=== PATIENT | female | born 2000 | race Caucasian/White ===

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

== ENCOUNTER → 2020-02-14 | Outpatient (CLI) | payer OTHER, SELFPAY | END | disposition home or self-care (01) | PROVIDERS: PCP Family Medicine; Referring Provider Family Medicine; Visit Provider Family Medicine | DX: R30.0 Dysuria (principal) | CPT/HCPCS: 87086; 87088 ==

== ENCOUNTER 2020-10-09 08:27 | Outpatient (RCR) | payer OTHER, SELFPAY ==
[2020-05-25 15:16] VITALS: BMI 20.7
== END 2020-10-15 23:59 ==
LOC: EMPH 08:27
PROVIDERS: PCP Family Medicine; Visit Provider Family Medicine Geriatric Medicine
DX: Z03.818 Encounter for observation for suspected exposure to other biological agents ruled out (principal)

== ENCOUNTER → 2021-04-28 16:16 | Outpatient (CLI) | payer OTHER, SELFPAY ==
[2021-04-28 15:44] VITALS: BMI 18.6
[2021-04-29 09:56] LABS: HIV - WCH Non-Reactive (Nonreactive); Syphilis Antibodies Non-reactive
[2021-04-30 05:11] LABS: HEPATITIS B SURFACE AG Negative (Negative); Hepatitis A IgM Antibody Negative (Negative); Hepatitis B Core AB IgM Negative (Negative)
[2021-04-30 08:12] LABS: Hep C Antibodies <0.1 s/co ratio (0.0-0.9)
[2021-05-01 03:07] LABS: Chlamydia By Nucleic Acid AMP Negative (Negative)
[2021-05-01 11:36] LABS: Gonococcus By Nucleic Acid AMP Negative (Negative)
== END ==
PROVIDERS: PCP Family Medicine; Referring Provider Obstetrics & Gynecology; Visit Provider Obstetrics & Gynecology
DX: N92.1 Excessive and frequent menstruation with irregular cycle (principal); Z97.5 Presence of (intrauterine) contraceptive device; Z11.3 Encounter for screening for infections with a predominantly sexual mode of transmission
CPT/HCPCS: 36415; 80074; 86703; 86780; 87491; 87591

== ENCOUNTER 2022-01-12 07:17 | Outpatient (CLI) | payer OTHER, SELFPAY ==
[2022-01-12 08:01] LABS: Absolute Lymphocyte Count 1.14 X10^3/uL (0.83-4.51); Absolute Neutrophil Count 7.8 X10^3/uL (2.0-7.7); Basophil# 0.06 X10^3/uL; Basophil% 0.6 % (0-1); Eosinophil# 0.09 X10^3/uL; Eosinophils% 0.9 % (0-5); Hematocrit 41.8 % (37-47); Hemoglobin 14.2 g/dL (12.0-15.0); Lymphocyte # 1.14 X10^3/ul (0.83-4.51); Lymphocyte % 11.7 % (19-41); Mean Corpuscular Hgb 30.1 pg (27.0-32.0); Mean Corpuscular Volume 88.6 fL (81-99); Mean Platelet Vol. 11.4 fl (6.2-12.0); Monocyte% 6.2 % (0-10); NRBC Flagged by Analyzer 0 % (0-5); Neutrophil # 7.82 X10^3/uL (2.7-7.7); Neutrophil % 80.2 % (47-70); Platelet Count 189 K/mm3 (150-450); RBC Distribution Width CV 12.4 % (11.6-14.6); RBC Distribution Width SD 40.7 fl (35.1-43.9); Red Blood Count 4.72 M/mm3 (4.2-5.4); White Blood Count 9.8 K/mm3 (4.4-11.0)
[2022-01-12 08:25] LABS: ALB/GLOB Ratio 1.2 RATIO (0.9-2.4); AST(SGOT) 21 U/L (15-37); Alanine Aminotransfer ALT/SGPT 19 U/L (13-56); Albumin, Serum 4.1 g/dL (3.2-5.0); Alkaline Phosphatase 59 U/L (45-117); Anion Gap 3 (5-15); BUN 8 mg/dL (7-18); BUN/Creat Ratio 11.7 RATIO (10-20); Calcium,Total 9.6 mg/dL (8.5-10.1); Chloride 104 mmol/L (98-107); Creatinine, Serum 0.68 mg/dL (0.55-1.02); EST Glomerular Filtration Rate 116 mL/min (>60); Est Glom Filt Rate - Afr Amer 140 mL/min (>60); Globulin 3.3 g/dL (2.2-4.2); Glucose 109 mg/dL (74-106); Potassium 3.9 mmol/L (3.5-5.1); Protein, Total 7.4 g/dL (6.4-8.2); Sodium Level 137 mmol/L (136-145)
== END 2022-01-12 23:59 | disposition home or self-care (01) ==
PROVIDERS: PCP Family Medicine; Referring Provider Family Medicine; Visit Provider Family Medicine
DX: R10.9 Unspecified abdominal pain (principal)
CPT/HCPCS: 36415; 80053; 85025

== ENCOUNTER 2022-03-26 16:21 | Emergency (ER) | payer OTHER, SELFPAY ==
[2022-03-26 16:23] VITALS: BP 126/86; PULSE 86; RESP 15; TEMP 36.4; O2SAT 98; BMI 18.9
--- NOTE | 2022-03-26 17:03 | ED.VIS.DENTA ---
HPI History of Present Illness Chief Complaint: Dental Informant: patient Onset/Context/Timing Onset: Today Context: Gradual Onset Timing: Continuous Quality: throbbing Location: right maxillary Current Severity: Severe Maximum Severity: Severe Worsened by: eating Relieved by: - (nothing including tylenol, NSAIDs) Associated Symptoms Assocated Symptom - Dental: Negative for fever, jaw swelling or face swelling Narrative Narrative: Patient had a dental filling several weeks ago, her dentist told her that she may need a root canal and to let him know if the pain returned. She has been doing well until today at which point the pain is been gradually progressively worsening and is severe. She denies any fevers, swelling, discharge, bleeding. It is the same tooth. [facility] Medical History (Updated 03/26/22 @ 17:[address] Mayito Martinez MD) Depression with anxiety Diarrhea Encounter for screening for COVID-19 Fatigue Head ache History of blood clots Knee pain Neck pain Shoulder pain SOB (shortness of breath) sudden weight loss Home Medications buspirone 10 mg tablet 10 mg PO BID 05/25/20 [History Last Taken Unknown] fluoxetine 20 mg capsule 20 mg PO DAILY 05/25/20 [History Last Taken Unknown] levonorgestrel 20 mcg/24 hours (7 yrs) 52 mg intrauterine device 1 device INTRAUTERINE ONCE 05/25/20 [History Last Taken Unknown] omeprazole 20 mg capsule,delayed release 20 mg PO DAILY 04/28/21 [History Last Taken Unknown] spironolactone 50 mg tablet 50 mg PO DAILY 04/28/21 [History Last Taken Unknown] promethazine 25 mg tablet 25 mg PO TID PRN #14 tab 06/16/21 [Rx Last Taken Unknown] promethazine 50 mg/mL injection solution 25 mg IM ONCE #0.5 ml 06/16/21 [Clinic Last Taken Unknown] tramadol 50 mg PO Q4H PRN PRN 3 Days #18 tab 03/26/22 [Rx Last Taken Unknown] Allergy/AdvReac Type Severity Reaction Status Date / Time No Known Allergies Allergy Verified 05/25/20 15:13 Family History Mother High cholesterol Father High cholesterol Surgical History History of esophagogastroduodenoscopy (EGD) History of repair of anterior cruciate ligament of left knee Hx of colonoscopy Social History Smoking Status: Current every day smoker tobacco type: cigarettes second hand exposure: No alcohol intake: never substance use type: does not use caffeine: Yes what type of physical activity do you participate in: none frequency: does not exercise seatbelt use: always ROS ROS ED Constitutional Constitutional ED: Denies chills or fever(s) Eyes Eyes: Denies change in vision or double vision ENT ENT ED: Reports dental pain; Denies sinus pain or throat swelling Cardiovascular Cardiovascular: Denies chest pain or palpitations Respiratory/Chest Respiratory/Chest: Denies cough or dyspnea Integumentary Denies abscess or rash Neurologic Neurologic: Denies headache(s), paresthesias or weakness EXAM Physical Exam Const Vital Signs: 03/26/22 16:23 Temperature 97.6 F L Temperature Source Temporal Pulse Rate 86 Respiratory Rate 15 Blood Pressure 126/86 H Blood Pressure Mean 99 Pulse Ox 98 Oxygen Delivery Method Room Air Positive well nourished and well developed General Appearance ED: well developed and NAD HEENT HEENT Narrative: Nontender tooth #3. Discolored due to recent filling. No signs of infection, bleeding, gingivitis, subluxation/loosening, abscess. No trismus. Face and Sinus: sinuses nontender Throat: posterior oropharynx normal Eyes PERRL and EOMs intact bilaterally Neck no lymphadenopathy and supple Resp normal respiratory effort Neuro oriented x3 and CN's II-XII intact bilaterally Sensorium / Orientation: alert Gait (Neuro): normal gait Psych mental status grossly normal and thought process normal Skin no rashes or lesions noted and no wounds MDM MDM MDM Narrative Medical decision making narrative: No sign of any infection and since she had this tooth filled there is much less likely an infectious etiology of this pain. We will give her a prescription for tramadol, advised use ibuprofen and Tylenol with it as needed, and follow-up with her dentist as soon as the weekend is over which is her plan. Discharge Plan Triage Chief Complaint: Dental ED Provider: Mayito Martinez Dx/Rx/DC Orders Clinical Impression: Odontalgia Instructions: ED Dental Pain Prescriptions: New tramadol 50 MG tablet 50 mg PO Q4H PRN PRN (Reason: Pain) 3 Days Qty: 18 RF: 0 No Action fluoxetine 20 mg capsule 20 mg PO DAILY RF: 0 buspirone 10 mg tablet 10 mg PO BID RF: 0 Mirena 20 mcg/24 hours (5 yrs) 52 mg intrauterine device 1 device intrauterine ONCE RF: 0 spironolactone 50 mg tablet 50 mg PO DAILY RF: 0 omeprazole 20 mg capsule,delayed release(DR/EC) 20 mg PO DAILY RF: 0 promethazine 50 mg/mL solution 25 mg IM ONCE Qty: 0.5 RF: 0 promethazine 25 mg tablet 25 mg PO TID PRN (Reason: nausea and vomiting) Qty: 14 RF: 0 Primary Care Provider: Edson Khan Referrals: Edson Khan MD [Primary Care Provider] - Dentist,Your [STAFF PHYSICIAN] - As soon as possible Disposition Disposition: Home, Self Care Discharge Date/Time: 03/26/22 17:09
== END 2022-03-26 17:09 | disposition home or self-care (01) ==
PROVIDERS: Emergency Provider Emergency Medicine; PCP Family Medicine; Visit Provider Emergency Medicine
DX: K08.89 Other specified disorders of teeth and supporting structures (principal); F32.A Depression, unspecified; F41.9 Anxiety disorder, unspecified; Z79.899 Other long term (current) drug therapy; F17.210 Nicotine dependence, cigarettes, uncomplicated
CPT/HCPCS: 99282

== ENCOUNTER 2022-07-12 12:40 | Day surgery (SDC) | payer OTHER, SELFPAY ==
[2022-07-12] VITALS (8 sets, daily range): BP systolic 86–107; BP diastolic 52–68; PULSE 53–90; RESP 16–18; TEMP 36.3–37.4; O2SAT 100; BMI 20.7
--- NOTE | 2022-07-12 11:20 | PCM.HP.BLA ---
History and Physical Date of Admission: 07/12/22 [facility] [address] [place] [address] OFFICE VISIT Date of Service:? 06/09/22 MR#: [id number] Acct: [id number] Name:KARIS MATTHEW Rep #: [id number] : 2000 ? ? Provider: Dr. Eve Vasquez, DO Age/Sex:? 21/F ? ? Location: [facility] Status: Signed Intake Vital Signs ? 06/09/2213:03 06/09/2213:06 Height 5 ft 6 in 5 ft 6 in Weight: ? 126 lb BMI ? 20.3 BP ? 110/72 Intake Visit Reasons:?Mirena removal [employer] Required: No Is patient in pain?: No Allergies No Known Allergies Allergy (Verified 06/09/22 13:03) Medications buspirone 10 mg tablet 10 mg PO BID 05/25/20 [History Confirmed 06/09/22] fluoxetine 20 mg capsule 20 mg PO DAILY 05/25/20 [History Confirmed 06/09/22] spironolactone 50 mg tablet 50 mg PO DAILY 04/28/21 [History Confirmed 06/09/22] promethazine 25 mg tablet 25 mg PO Q6H PRN nausea and vomiting #60 tabs 06/09/22 [Rx Confirmed 06/09/22] sertraline 50 mg tablet (Zoloft) 50 mg PO DAILY #90 tabs 06/09/22 [Rx Confirmed 06/09/22] Post menopausal: No Patient : No : No PFSH Medical History? Depression with anxiety Diarrhea Encounter for screening for COVID-19 Fatigue Head ache History of blood clots Knee pain Neck pain Shoulder pain SOB (shortness of breath) sudden weight loss Surgical History? History of esophagogastroduodenoscopy (EGD) History of repair of anterior cruciate ligament of left knee Hx of colonoscopy Family History? Mother High cholesterolFather High cholesterol Social History? Smoking Status:? Current every day smoker tobacco type: cigarettes second hand exposure:? No alcohol intake:? never substance use type:? does not use caffeine:? Yes what type of physical activity do you participate in:? none frequency:? does not exercise seatbelt use:? always HPI Mirena removal Details: KARIS BRIGHT is a 21 year old who presents for IUD removal and discussion about contraception. She also wants to discuss changing her antidepressant medication to something different as she has moderate to severe anxiety that is causing nausea and vomiting. Currently she has pelvic pain associated with the IUD . She states that it was inserted to help stop her menses and as a safe resort after she experienced a blood clot in high school following an MCL tear while on OCPs. She states that she has bleeding most days of the month and has frequent cramping and pain. She is interested in depo-provera. Pregancy History ? ? ? 0 ? Elective abortions ? Hx Para ? Spontaneous abortions ? Hx # Term Pregnancies ? Ectopic pregnancies ? Hx # Pregnancies ? Multiple births ? # of living children ? ROS Const ROS Unobtainable: All systems reviewed & are unremarkable except as noted in H Resp Resp: Reports system reviewed and no additional complaints, except as documented; Denies cough GI GI: Reports as per HPI Psych Psych: Reports system reviewed and no additional complaints, except as documented Exam Const General: cooperative, healthy appearing, comfortable and no acute distress Resp Effort & Inspection: normal respiratory effort General: bimanual renal exam normal bilaterally External Female Exam: normal appearance of the urethra Urethra: normal appearance of the urethra Speculum Exam - Vagina: normal appearance of the vagina Speculum Exam - Cervix: normal appearance of the cervix Bimanual Exam- Adnexa, other: normal adnexae and normal Pelvic Support: normal Skin General: no rashes or lesions noted Psych Appearance: grossly normal Speech and Movement: speech and movement normal Office Procedures IUD Removal IUD Removal Details: Sign out documentation: Completed Procedure: Speculum placed in vagina, The iud strings were not visible. A long malick was used to reach into the cervical canal, however after multiple attempts and passes with the Malick deivce, the strings were not found and the procedure was aborted. Coding Level of Care Code Off vis,est,level 4 Diagnoses Retained intrauterine contraceptive device (IUD)? T83.39XA Contraceptive management? Z30.9 Anxiety? F41.9 Assessment and Plan Assessment and Plan (1) Retained intrauterine contraceptive device (IUD): ?Status:?Acute ?Plan: plan for hysteroscopy, removal of IUD and start depo-provera after removal consent signed today. (2) Contraceptive management: ?Status:?Acute ?Plan: plan for depo provera following surgery (3) Anxiety: ?Status:?Acute ?Plan: patient wants to stop fluoxetine. will try zoloft and continue wellbutrin and add on promethazine to take as needed for nausea and anxiety. ? ? ? Orders: Orders IUD Removal Today Z30.432 - Encounter for removal of intrauterine contraceptive device ? Medications: New promethazine 25 mg? PO Q6H PRN 60 tabs 3RF nausea and vomiting ? ? sertraline (Zoloft) 50 mg? PO DAILY 90 tabs 4RF ? ? UPDATE- I have seen the patient and performed any clinically relevant updates to the history and physical exam. Eve Vasquez, DO
[2022-07-12] MEDS: Lactated Ringers 1,000 ML 15 ML IV (13:10)
[2022-07-12 13:11] LABS: Hematocrit 41.6 % (37-47); Hemoglobin 13.6 g/dL (12.0-15.0); Mean Corp Hgb Conc 32.7 g/dL (32-36); Mean Corpuscular Volume 91.8 fL (81-99); Mean Platelet Vol. 10.2 fl (6.2-12.0); Platelet Count 210 K/mm3 (150-450); RBC Distribution Width CV 12.2 % (11.6-14.6); RBC Distribution Width SD 41.2 fl (35.1-43.9); Red Blood Count 4.53 M/mm3 (4.2-5.4); White Blood Count 4.9 K/mm3 (4.4-11.0)
[2022-07-12 13:23] LABS: Internal QC Validated? YES +Cl - CLEAR BKGD; Pregnancy, Urine Negative Negative
[2022-07-12] MEDS: Lidocaine 1% (20 ml mdv) 20 ML Vial (14:40)
--- NOTE | 2022-07-12 14:46 | PCM.OP.BLANK ---
Operative Report Date of Procedure: 07/12/22 preoperative diagnosis:retained IUD, unsuccessful removal in office postoperative diagnosis:retained IUD, unsuccessful removal in office surgery: Hysteroscopy, removal of retained intrauterine device (IUD) Surgeon: Dr. Eve Vasquez DO EBL: minimal urine output: none findings: atrophic appearing uterus specimens removed: endometrial curettings Details of the procedure: Patient was prepped and draped in a normal sterile fashion under MAC anesthesia. A weighted speculum was placed in the vagina and the anterior lip of the cervix was grasped with a single-tooth tenaculum. A paracervical block was placed with 1% lidocaine. Cervix was progressively dilated to allow passage of a 5 mm hysteroscope. The iud was found and a hysteroscopic grasper was inserted into the hysteroscope. The string was grasped and pulled gently. The IUD was then successfully removed. The Patient was awoken and taken to recovery in stable condition. Multi Select Codes Urinary/Genital Urinary/Genital CPT Codes: 57443 Hysteroscopic removal of FB
--- NOTE | 2022-07-12 14:49 | DCINST_ITS ---
Discharge Instructions Diet Discharge Diet: No restrictions Activity Discharge Activity: Return to Normal Activity, May Shower and May Take a Tub Bath (after 1 week) May resume sexual activity in: 1-2 weeks Weight Bearing Status: Weight bearing as tolerated Lifting Restrictions: none Dressing / Incision Call your doctor if you observe: Fever of 101 or Higher, Using more than 1 pad per hour, Shortness of breath and Uncontrolled pain Follow Up Care Please Follow Up With: Eve Vasquez DO When: Call [phone] to schedule appointment. Test Results: Test results from this visit will be discussed in further detail at your follow- up appointment, if applicable. Discharge Plan Admission Primary Reason for Your Visit: hysteroscopy, removal of intrauterine device. Attending Provider: Eve Vasquez Primary Care Provider: Edson Khan Discharge Orders/Prescriptions Prescriptions: No Action buspirone 10 mg tablet 10 mg PO BID spironolactone 50 mg tablet 50 mg PO DAILY trazodone 50 mg Tablet 50 mg PO DAILY PRN PRN (Reason: ANXIETY-RELATED N/V) sertraline [Zoloft] 50 mg tablet 50 mg PO QHS Referrals / Follow Up: Edson Khan MD [Primary Care Provider] - Disposition Disposition (needs filled in before D/C Order can be placed): Home, Self Care
[2022-07-12] MEDS: HYDROcodone Bitartrate/Apap 5/325 Tablet PO (15:50)
[2022-07-12] MEDS: MedroxyPROGESTERone 150 MG/ML Syringe IM (15:52)
== END 2022-07-12 16:20 | disposition home or self-care (01) ==
LOC: SDC 12:41 → AC 12:42
PROVIDERS: Anesthesiology; PCP Family Medicine; Referring Provider Obstetrics & Gynecology; Visit Provider Obstetrics & Gynecology
PROC: 0UDB8ZZ Extraction of Endometrium, Via Natural or Artificial Opening Endoscopic (ICD-10-PCS; CPT 58558; principal; 2022-07-12 14:00)
DX: Z30.432 Encounter for removal of intrauterine contraceptive device (principal); F32.9 Major depressive disorder, single episode, unspecified; F41.9 Anxiety disorder, unspecified; Z79.899 Other long term (current) drug therapy; F17.210 Nicotine dependence, cigarettes, uncomplicated
CPT/HCPCS: 58562; 00952; 81025; 85027; 86850; 86900; 86901; J7120; J2405

== ENCOUNTER → 2022-09-30 | Outpatient (CLI) | payer OTHER, SELFPAY ==
[2022-09-30 12:38] LABS: Absolute Lymphocyte Count 1.39 X10^3/uL (0.83-4.51); Absolute Neutrophil Count 2.4 X10^3/uL (2.0-7.7); Basophil# 0.05 X10^3/uL; Basophil% 1.2 % (0-1); Eosinophil# 0.11 X10^3/uL; Eosinophils% 2.6 % (0-5); Hematocrit 42.4 % (37-47); Hemoglobin 13.4 g/dL (12.0-15.0); Lymphocyte # 1.39 X10^3/ul (0.83-4.51); Lymphocyte % 32.6 % (19-41); Mean Corp Hgb Conc 31.6 g/dL (32-36); Mean Corpuscular Hgb 29.5 pg (27.0-32.0); Mean Corpuscular Volume 93.4 fL (81-99); Mean Platelet Vol. 11.2 fl (6.2-12.0); Monocyte# 0.32 X10^3/uL; Monocyte% 7.5 % (0-10); NRBC Flagged by Analyzer 0 % (0-5); Neutrophil # 2.38 X10^3/uL (2.7-7.7); Neutrophil % 55.9 % (47-70); Platelet Count 193 K/mm3 (150-450); RBC Distribution Width CV 12.8 % (11.6-14.6); RBC Distribution Width SD 43.8 fl (35.1-43.9); Red Blood Count 4.54 M/mm3 (4.2-5.4); White Blood Count 4.3 K/mm3 (4.4-11.0)
[2022-09-30 12:55] LABS: Anion Gap 7 (5-15); BUN 8 mg/dL (7-18); BUN/Creat Ratio 11.9 RATIO (10-20); Calcium,Total 9.3 mg/dL (8.5-10.1); Chloride 105 mmol/L (98-107); Creatinine, Serum 0.67 mg/dL (0.55-1.02); EST Glomerular Filtration Rate 116 mL/min (>60); Est Glom Filt Rate - Afr Amer 141 mL/min (>60); Glucose 77 mg/dL (74-106); Sodium Level 138 mmol/L (136-145); Thyroid Stim Hormone (TSH) 0.72 uIU/mL (0.358-3.74)
== END | disposition home or self-care (01) ==
LOC: MFPLAB 09:20
PROVIDERS: PCP Family Medicine; Referring Provider Family Medicine; Visit Provider Family Medicine
DX: R61 Generalized hyperhidrosis (principal)
CPT/HCPCS: 36415; 80048; 84443; 85025

== ENCOUNTER → 2022-12-03 | Outpatient (CLI) | payer OTHER, SELFPAY ==
--- NOTE | 2022-12-03 07:30 | MRI_ITS ---
STUDY: MRI LEFT KNEE REASON FOR EXAM: Female, 22 years old. PAIN POSTERIOR KNEE AND ALONG BOTH SIDES OF KNEE AT JOINT X 2 WEEKS. HX OF ACL TEAR IN 2019 WHICH WAS REPAIRED. RE-INJURED AND NOW PAINFUL ALL THE TIME. MR LEFT KNEE 2016 ALSO TECHNIQUE: Standardized fat and water weighted pulse sequences were obtained in all 3 orthogonal planes. COMPARISON: MRI of the left knee dated May 05, 2016 FINDINGS: There is attrition of the free edge of the medial meniscus without a demonstrated meniscal tear. There is diffuse, less than 50% thickness articular cartilage loss of the medial femorotibial compartment. Normal medial femoral condyle and tibial plateau. Normal medial collateral ligamentous complex (MCL). Normal distal semimembranosus, gracilis and semitendinosus tendons. Normal lateral meniscus. Normal hyaline cartilage of the lateral femorotibial compartment. Normal lateral femoral condyle and tibial plateau. Normal proximal tibiofibular articulation. Normal lateral collateral (fibular) ligament. Normal popliteus tendon. Normal biceps femoris tendon. The ACL graft is fully intact and without evidence of tearing or retraction. No visualized cyclops lesion or nodular fibrosis associated with the ACL. Mild fibrotic stranding is present in the posterior and lateral side of the knee joint. No marrow edema or osteochondral defect is seen. Normal posterior cruciate ligament (PCL). Normal congruent patellofemoral articulation. Normal hyaline cartilage of the patellofemoral compartment. Normal medial and lateral patellar retinaculum. Normal quadriceps tendon. Normal patellar tendon. Normal Hoffa''s fat pad. There is no joint effusion. The soft tissues are unremarkable. The otherwise visualized osseous structures are unremarkable. MRI/Lower Ext Joint Only (Routine) IMPRESSION: 1. The ACL graft is fully intact and without evidence of tearing or retraction. No visualized cyclops lesion or nodular fibrosis associated with the ACL. Mild fibrotic stranding is present in the posterior and lateral side of the knee joint. No marrow edema or osteochondral defect is seen. 2. Diffuse attrition/thinning of the medial meniscus without a discrete tear and mild cartilage loss in the medial compartment Electronically Signed: Chuck Fischer MD at 12:08 EST ,
== END | disposition home or self-care (01) ==
LOC: MRI 07:23
PROVIDERS: PCP Family Medicine; Referring Provider Orthopaedic Surgery; Visit Provider Orthopaedic Surgery
DX: M25.562 Pain in left knee (principal)
CPT/HCPCS: 73721

== ENCOUNTER 2023-01-03 14:00 | Outpatient (RCR) | payer OTHER, SELFPAY ==
--- NOTE | 2022-12-14 10:33 | HP.PTEVAL_ITS ---
Patient's Visit Information KARIS BRIGHT is a 22 year old F referred to Physical Therapy by Dr. Janes Manrique DO with a diagnosis of L knee pain. Date of Evaluation: 12/14/22 Physical Therapist: Patrice Shell, PT, ATC - Visit Plan Frequency: 2-3x /Week Duration: 4-6 Weeks Plan: L knee stretching and strengthening, core stab ex's, balance and proprio, bike, and HEP - Subjective Pt reports her L knee has been sore for 5 weeks now. Pt reports she tore her ACL in 2016, and this pain felt the same as before. Pt reports her pain had an insidious onset. Pt reports she woke up one morning to go to the bathroom, and by the time she got back to her bed, her pain was severe. Pt notes she had a recent MRI which revealed no signifcant findings. Pt reports her L knee has given out on her, but notes her knee clicks all the time. No tingling or numbness at this time. No sleep difficulty at this time. Pt reports prolonged walking and stair negotiation all increase her pain significantly. Pt reports rest and ice are the only things that really help to decrease her pain. 4/10 pain at rest, 8/10 pain at worst. - Pain L knee pain Pain Intensity (Out of 10): 3 Pain Intensity Range: 8 - Objective Neuro: B LE sensation is WNL to light touch. B achilles reflex= 2/3. Palpation: Pt is very sore in the popliteal region of L knee. Minor crepitus with AROM. Girth at joint line: B knees 35 cm. MMT: R knee flex= 37, ext= 44 #F; L knee flex= 10, ext= 11 #F. ROM: R knee 0-140 degrees; L knee 0-18-118 degrees. Special tests: pos 90/90 test (40 degree lag), pos apley compression stretch, pain with McMurrys - Balance/Special Test Scores Lower Extremity Functional Score: 23 - Goals Goal 1:: Decrease L knee pain x 50% to aid with tolerance for ambulation Goal Time Frame: 4-6 Weeks Goal 2:: Increase L knee strength x 20 #F to aid with IADL's Goal Time Frame: 4-6 Weeks Goal 3:: Increase L knee ROM x 20 degrees to aid with return to work without li mitation Goal Time Frame: 4-6 Weeks Goal 4:: I with HEP Goal Time Frame: 4-6 Weeks - Rehabilitation Potential Physical Therapy Diagnosis: Pt has L knee pain, weakness, and limited ROM secondary to L knee strain Rehabilitation Potential: Good - Anticipated Interventions Patient/Client Instruction: Educate patient on: Condition, Plan of Care For the Purpose of:: To improve self management Therapeutic Exercise to Include: Strength training, Endurance training, Balance training, Flexibilty training, Dynamic Lumbar Stabilization For the Purpose of:: To decrease pain, To increase ROM, To improve muscle performance and motor function Cryotherapy (ice pack, ice massage): Yes For the Purpose of:: To decrease pain Thank you for the opportunity to evaluate your patient. For Medicare and Medicare HMO plans, please review the plan of care and approve it. It will need to be FAXED BACK to us at [phone] for Medicare purposes. For Medicare only, by signing this I certify the plan of care. Please let me know if there are questions or concerns regarding this plan of care. Physician Signature: Date:
--- NOTE | 2023-04-19 09:13 | HP.PT.NRP ---
Patient Information Patient Information: KARIS BRIGHT was seen in my office for initial evaluation on 12/14/22. The following Plan of Care was established for this patient: POC Established Initial Frequency: 2-3x /Week Initial Duration: 4-6 Weeks Anticipated Interventions Patient/Client Instruction: Educate patient on: Condition and Plan of Care For the Purpose of:: To improve self management Therapeutic Exercise to Include: Strength training, Endurance training, Balance training, Flexibilty training and Dynamic Lumbar Stabilization For the Purpose of:: To decrease pain, To increase ROM and To improve muscle performance and motor function Cryotherapy (ice pack, ice massage): Yes For the Purpose of:: To decrease pain Last Seen Last Seen: This patient was last seen in our office . Pertinent comments regarding their Physical therapy will appear below: Pt was treated for 4 PT visits for L knee pain through the date of 01/03/23. Pt has not returned through todays date and is discontinued at this time. At this point I will be discontinuing this patient from physical therapy. I would be happy to see this patient again in the future if found appropriate by the physician. Thank you! Patrice Shell, PT, ATC Balance/Gait/Functional tests Balance/Special Test Scores Lower Extremity Functional Score: 23
== END 2023-01-03 19:00 | disposition home or self-care (01) ==
LOC: PT 14:00
PROVIDERS: PCP Family Medicine; Referring Provider Orthopaedic Surgery; Visit Provider Orthopaedic Surgery
DX: S83.512D Sprain of anterior cruciate ligament of left knee, subsequent encounter (principal)
CPT/HCPCS: 97110; 97161

== ENCOUNTER 2023-03-17 16:25 | Emergency (ER) | payer OTHER, SELFPAY ==
[2023-03-17 16:26] VITALS: BP 115/78; PULSE 107; RESP 16; TEMP 36.9; O2SAT 100
[2023-03-17 16:27] VITALS: BMI 22.0
--- NOTE | 2023-03-17 16:30 | RAD_ITS ---
INDICATION: Trauma, fall EXAMINATION/TECHNIQUE: X-RAY - LEFT XR Tibia/Fibula 2 Views 2 VIEWS COMPARISON: None. FINDINGS: SOFT TISSUES: No soft tissue swelling or gas. Surgical clip at the lateral femoral condyle. BONES/JOINTS: No acute fracture. Surgical changes from prior ACL repair. Joint spaces anatomically aligned. RAD/Tibia & Fibula 2 Views IMPRESSION: No acute bony injury. Electronically Signed: Herman Hinkle MD at 16:58 EDT ,
--- NOTE | 2023-03-17 16:44 | EX.ED.DYSGE1 ---
HPI History of Present Illness Chief Complaint: Lower Extremity Injury [facility] Medical History (Updated 03/17/23 @ 17:[address] Masood Moreno, DO) Depression with anxiety Easy bruising Excessive bleeding Gastric reflux History of blood clots History of DVT (deep vein thrombosis) Marijuana use PONV (postoperative nausea and vomiting) Restless legs Smoker SOB (shortness of breath) sudden weight loss Home Medications buspirone 10 mg tablet 10 mg PO BID 05/25/20 [History Last Taken Unknown] spironolactone 50 mg tablet 50 mg PO DAILY ACNE 04/28/21 [History Last Taken Unknown] trazodone 50 mg tablet 50 mg PO DAILY PRN PRN ANXIETY-RELATED N/V 07/04/22 [History Last Taken Unknown] medroxyprogesterone 150 mg/mL intramuscular syringe (Depo-Provera) 150 mg IM [id number] #1 mL 08/02/22 [Rx Last Taken Unknown] sertraline 50 mg tablet (Zoloft) 50 mg PO QHS #30 tabs 08/02/22 [Rx Last Taken Unknown] promethazine 12.5 mg tablet 12.5 mg PO Q6H PRN nausea and vomiting #60 tabs 01/30/23 [Rx Last Taken Unknown] promethazine 25 mg tablet 25 mg PO Q6H PRN nausea and vomiting #60 tabs 02/01/23 [Rx Last Taken Unknown] Allergy/AdvReac Type Severity Reaction Status Date / Time No Known Allergies Allergy Verified 03/17/23 16:27 Family History Mother High cholesterol Father High cholesterol Surgical History History of esophagogastroduodenoscopy (EGD) History of repair of anterior cruciate ligament of left knee Hx of colonoscopy Social History Smoking Status: Current every day smoker tobacco type: cigarettes second hand exposure: No alcohol intake: never substance use type: does not use caffeine: Yes what type of physical activity do you participate in: none frequency: does not exercise seatbelt use: always EXAM Physical Exam Const Vital Signs: 03/17/23 16:26 Temperature 98.5 F Temperature Source Temporal Pulse Rate 107 H Respiratory Rate 16 Blood Pressure 115/78 Blood Pressure Mean 90 Pulse Ox 100 Oxygen Delivery Method Room Air [facility] [place] Narr[place] Medical decision making narrative: HISTORY OF PRESENT ILLNESS: 22-year-old female here with left leg pain. The patient states she had mechanical fall from standing. No head trauma or loss of consciousness noted. She states she has 10 out of 10 left leg pain. Denies history of fracture or dislocation to the involved extremity. REVIEW OF SYSTEMS: Pertinent positives: Leg pain Pertinent negatives: Numbness, tingling, blue discoloration PHYSICAL EXAM: Nursing triage notes reviewed, Vital signs reviewed Constitutional: please see mdm Extremities: No edema, TTP over distal left tibia. Compartments are soft. Neuro: Intact sensation L1-S1 dermatomal distributions. Intact 5/5 strength in hip flexion (T12-L3). Knee extension (L2-L4). Ankle dorsiflexion (L4-L5). Ankle plantar flexion (S1). Great toe extension (L5). 2+ patellar and Achilles DTRs. Skin: No rash or lesions noted, no evidence of open fracture MEDICAL DECISION MAKING: Chief Complaint: Left lower leg pain External records reviewed: No recent advanced imaging of the involved extremity Factors affecting care: Depression, anxiety, history of DVT Social determinants of health: Current every day smoker, marijuana abuse History obtained from others: The patient's family, malina? Consults: None ALL IMAGES HAVE BEEN PERSONALLY REVIEWED AND INTERPRETED BY MYSELF. [facility] Narrative: Patient was hemodynamically stable, afebrile, nontoxic-appearing. Exam with mild TTP over lower anterior tibia. No obvious deformity or open fracture. I considered the following differential diagnosis: Fracture, dislocation, bone contusion I obtained an x-ray of the involved extremity. X-ray was personally read by myself. No obvious fracture dislocation was noted. Radiologist agrees there is no obvious fracture dislocation noted. The patient is likely some from a bone contusion and as such can be discharged with close outpatient follow-up. She is instructed to take Tylenol and ibuprofen every 6 hours as needed for pain control. She is instructed to return if symptoms change worsen or she develop discoloration, increasing pain, numbness, tingling or decreased temperature of the involved extremity. Total critical care time today provided was at least 0 minutes. This excludes separately billable procedures. There was a high probability of clinically significant/life threatening deterioration in the patient's condition which required my urgent intervention. Shared decision making: I will have a discussion with the patient and or visitors regarding risk/benefits of further testing or admission. They will be made aware of of the risk/benefits inherent in this decision they will be given the opportunity to voice understanding. Radiography Diagnostic Testing: Clinical Impression(s) from Imaging Studies Tibia/Fibula X-Ray 03/17/23 16:30 IMPRESSION: No acute bony injury. Electronically Signed: Herman Hinkle MD at 16:58 EDT , X-ray reviewed personally by myself shows no evidence of fracture dislocation Discharge Plan Triage Chief Complaint: Lower Extremity Injury ED Provider: Masood Moreno Dx/Rx/DC Orders Clinical Impression: Contusion of left leg Instructions: Bone Contusion Prescriptions: No Action buspirone 10 mg tablet 10 mg PO BID spironolactone 50 mg tablet 50 mg PO DAILY sertraline [Zoloft] 50 mg tablet 50 mg PO QHS Qty: 30 12RF medroxyprogesterone [Depo-Provera] 150 mg/mL syringe 150 mg IM [id number] Qty: 1 4RF trazodone 50 mg Tablet 50 mg PO DAILY PRN PRN (Reason: ANXIETY-RELATED N/V) promethazine 12.5 mg tablet 12.5 mg PO Q6H PRN (Reason: nausea and vomiting) Qty: 60 0RF promethazine 25 mg tablet 25 mg PO Q6H PRN (Reason: nausea and vomiting) Qty: 60 6RF Primary Care Provider: Edson Khan Referrals: Edson Khan MD [Primary Care Provider] - Activity Restrictions/Additional Instructions: Thank you for trusting us with your care today! Please take Tylenol (2 pills, 650 mg), ibuprofen (2 pills, 400 mg) every 6 hours as needed for pain and fever control. Please return to the emergency department if your symptoms change or worsen. Specifically if you develop blue discoloration of the involved extremity, increasing pain, numbness, tingling or if your extremity becomes cool to touch. Please follow with your primary care physician for further outpatient evaluation and management. Disposition Disposition: Home, Self Care
[2023-03-17] MEDS: Ibuprofen 200 MG Tablet 400 MG PO (17:27)
[2023-03-17] MEDS: Acetaminophen 325 MG Tablet PO (17:28)
== END 2023-03-17 17:37 | disposition home or self-care (01) ==
PROVIDERS: Emergency Provider Emergency Medicine; PCP Family Medicine; Visit Provider Emergency Medicine
DX: S80.12XA Contusion of left lower leg, initial encounter (principal); F41.9 Anxiety disorder, unspecified; F17.210 Nicotine dependence, cigarettes, uncomplicated; Z86.718 Personal history of other venous thrombosis and embolism; W19.XXXA Unspecified fall, initial encounter
CPT/HCPCS: 73590; 99281; 99283

== ENCOUNTER → 2023-03-22 | Outpatient (CLI) | payer OTHER, SELFPAY ==
[2023-03-24 21:08] LABS: Chlamydia By Nucleic Acid AMP Negative (Negative); Gonococcus By Nucleic Acid AMP Negative (Negative)
[2023-03-28 18:22] LABS: HPV Reflexed? NOT INDICATED
== END | disposition home or self-care (01) ==
LOC: LABSPEC 16:20
PROVIDERS: PCP Family Medicine; Referring Provider Registered Nurse; Visit Provider Registered Nurse
DX: Z12.4 Encounter for screening for malignant neoplasm of cervix (principal); Z11.3 Encounter for screening for infections with a predominantly sexual mode of transmission
CPT/HCPCS: 87491; 87591; 88175; G0145

== ENCOUNTER 2023-09-02 09:26 | Emergency (ER) | payer OTHER, SELFPAY ==
[2023-09-02 09:27] VITALS: BP 131/87; PULSE 118; RESP 16; TEMP 36.5; O2SAT 100; BMI 25.4
--- NOTE | 2023-09-02 09:53 | EDS_ITS ---
HPI HPI - Female History of Present Illness Chief Complaint: Complaint Informant: patient Narrative Narrative: Patient awoke this morning around 3 AM with dysuria and low back discomfort, similar to when she has had prior urinary tract infections. 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 She denies any symptoms of pyelonephritis. Typically gets low back pain when she has urine infections. She has had many of them in the past, she has seen her PCP, who recommended that she see a specialist but she has not scheduled 1 yet. [facility] Medical History Depression with anxiety Easy bruising Excessive bleeding Gastric reflux History of blood clots History of DVT (deep vein thrombosis) Marijuana use PONV (postoperative nausea and vomiting) Restless legs Smoker SOB (shortness of breath) sudden weight loss Home Medications buspirone 10 mg tablet 10 mg PO BID 05/25/20 [History Last Taken Unknown] trazodone 50 mg tablet 50 mg PO DAILY PRN PRN ANXIETY-RELATED N/V 07/04/22 [History Last Taken Unknown] medroxyprogesterone 150 mg/mL intramuscular syringe (Depo-Provera) 150 mg IM [id number] #1 mL 08/02/22 [Rx Last Taken Unknown] sertraline 50 mg tablet (Zoloft) 50 mg PO QHS #30 tabs 08/02/22 [Rx Last Taken Unknown] promethazine 12.5 mg tablet 12.5 mg PO Q6H PRN nausea and vomiting #60 tabs 01/30/23 [Rx Last Taken Unknown] promethazine 25 mg tablet 25 mg PO Q6H PRN nausea and vomiting #60 tabs 02/01/23 [Rx Last Taken Unknown] sulfamethoxazole 800 mg-trimethoprim 160 mg tablet 1 tab PO BID #6 TABLETS 08/16 06/07 [Rx Last Taken Unknown] Allergy/AdvReac Type Severity Reaction Status Date / Time No Known Allergies Allergy Verified 09/02/23 09:28 Family History Mother High cholesterol Father High cholesterol Surgical History History of esophagogastroduodenoscopy (EGD) History of repair of anterior cruciate ligament of left knee Hx of colonoscopy Social History current occupational status: employed current occupation: [employer] Smoking Status: Never smoker second hand exposure: No alcohol intake: never substance use type: does not use caffeine: Yes what type of physical activity do you participate in: none frequency: does not exercise seatbelt use: always additional social history: fience - Naif ROS ROS ED Constitutional Constitutional ED: Denies chills or fever(s) Gastrointestinal Gastrointestinal: Reports abdominal pain; Denies nausea or vomiting Genitourinary Genitourinary ED: Reports dysuria, low back pain, urinary frequency and urinary urgency; Denies flank pain or hematuria EXAM Physical Exam Const Vital Signs: 09/02/23 09:27 Temperature 97.7 F L Temperature Source Temporal Pulse Rate 118 H Respiratory Rate 16 Blood Pressure 131/87 H Blood Pressure Mean 101 Pulse Ox 100 Oxygen Delivery Method Room Air Positive well nourished and well developed General Appearance ED: well developed and NAD Resp normal respiratory effort GI normal to inspection, nondistended, normoactive bowel sounds GI Narrative: Mild suprapubic tenderness, otherwise benign abdomen Palpation: Negative for guarding Back/Spine no CVA tenderness Neuro oriented x3, CN's II-XII intact bilaterally and no sensory deficits noted Motor Exam: strength 5/5 throughout Psych mental status grossly normal Skin no rashes or lesions noted MDM MDM MDM Narrative Medical decision making narrative: Patient took Azo this morning, she states her urine is already orange, so I am not going to wait on the urinalysis, I am going to treat her with 3 days of Bactrim for a cystitis, and send a urine culture. She will be referred to urology as an outpatient for her frequent infections. She is comfortable with that plan. Discharge Plan Triage Chief Complaint: Complaint ED Provider: Mayito Martinez Dx/Rx/DC Orders Clinical Impression: Frequent refractory urinary tract infections, Acute cystitis without hematuria Instructions: Urinary Tract Infections in Women Prescriptions: New sulfamethoxazole-trimethoprim [sulfamethoxazole-trimethoprim] 800-160 mg tablet 1 tab PO BID Qty: 6 0RF No Action buspirone 10 mg tablet 10 mg PO BID sertraline [Zoloft] 50 mg tablet 50 mg PO QHS Qty: 30 12RF medroxyprogesterone [Depo-Provera] 150 mg/mL syringe 150 mg IM [id number] Qty: 1 4RF trazodone 50 mg Tablet 50 mg PO DAILY PRN PRN (Reason: ANXIETY-RELATED N/V) promethazine 12.5 mg tablet 12.5 mg PO Q6H PRN (Reason: nausea and vomiting) Qty: 60 0RF promethazine 25 mg tablet 25 mg PO Q6H PRN (Reason: nausea and vomiting) Qty: 60 6RF Primary Care Provider: Edson Khan Referrals: Hilary Collins MD [Med Staff - Active Staff] - Edson Khan MD [Primary Care Provider] - Disposition Disposition: Home, Self Care
[2023-09-02] MEDS: Smz/Tmp Ds Tablet 1 TABLET PO (10:01)
[2023-09-02 10:06] LABS: Glucose, Dipstick Normal (Normal); Ketone-Dipstick Negative (Negative); Leukocyte Esterase-Dipstick 25 /ul (Negative); Nitrite-Dipstick Positive (Negative); Occult Blood-Urine 10 /ul (Negative); Protein-Dipstick 30 mg/dl (Negative); Urine Clarity Sl. Cloudy (Clear); Urine Urobilinogen 8 mg/dl (Normal)
[2023-09-02 10:09] LABS: Color, Urine SEE COMMENT BELOW (Yellow); Urine Bilirubin Dipstick 6 mg/dL (Negative)
[2023-09-02 10:13] LABS: Red Blood Cells-Urine 0-5 SEEN /hpf (0-5); White Blood Cells 10-25 SEEN /hpf (0-5)
[2023-09-02 10:14] LABS: Bacteria 1+ /hpf (None Seen); Mucous, Urine 1+ /hpf (<or=2+); Squamous Epithelial Cells - UA 0-5 SEEN /hpf (5-10)
== END 2023-09-02 10:05 | disposition home or self-care (01) ==
LOC: ED 10:03
PROVIDERS: Emergency Provider Emergency Medicine; PCP Family Medicine; Visit Provider Emergency Medicine
DX: N30.00 Acute cystitis without hematuria (principal); Z87.440 Personal history of urinary (tract) infections; R30.0 Dysuria; R35.0 Frequency of micturition; R39.15 Urgency of urination
CPT/HCPCS: 81001; 87086; 87088; 87186; 99282

== ENCOUNTER → 2023-10-24 | Outpatient (CLI) | payer OTHER, SELFPAY ==
--- NOTE | 2023-10-24 14:02 | US_ITS ---
STUDY: RENAL ULTRASOUND - COMPLETE REASON FOR EXAM: Female, 22 years old. Recurrent UTI TECHNIQUE: Ultrasound evaluation of the kidneys was performed with real-time and static warren-scale imaging. COMPARISON: None. FINDINGS: RIGHT KIDNEY: Normal location of the right kidney, which is normal in size. The right kidney measures 10.6 cm x 5.9 cm x 3.8 cm. There is a normal cortex of the right kidney. The renal cortex measures 1.5 cm. There is no right renal mass or cyst. There are no right renal calculi. There is no right hydronephrosis. DISTAL RIGHT URETER: There is non-visualization of the distal right ureter. There is no demonstrated right ureterovesical junction calculus. There is a visualized right ureteral jet. LEFT KIDNEY: Normal location of the left kidney, which is normal in size. The left kidney measures 11.3 cm x 5.6 cm x 4.1 cm. There is a normal cortex of the left kidney. The renal cortex measures 1.4 cm. There is no left renal mass or cyst. There are no left renal calculi. There is no left hydronephrosis. DISTAL LEFT URETER: There is non-visualization of the distal left ureter. There is no demonstrated left ureterovesical junction calculus. There is a visualized left ureteral jet. BLADDER: The distended urinary bladder has a volume of 106 ml. There is a normal wall thickness of the distended urinary bladder. There is no demonstrated mass within the urinary bladder. There are no demonstrated bladder calculi. US/Kidney and Bladder IMPRESSION: Normal ultrasound of the kidneys and urinary bladder. Electronically Signed: Castillo Treviño MD at 15:00 EST ,
--- OUTSIDE RECORDS SUMMARY | 2023-10-24 15:40 | XMS RPT_ITS | CCD ---
Author Name Unknown Address [address] [place] [address] Organization [facility] Results Test Name Value Interpretation Reference Range Facil ity Summary Purpose Family History No Family History Records Found Advance Directives No Advanced Directives Records Found Additional Source Comments INFORMATION SOURCE (unrecogn ized section and content) FOR RECORDS PERTAINING TO PATIENTS WHO ARE OR HAVE BEEN ENROLLED IN A CHEMICAL DEPENDENCY/SUBSTANCEABUSE PROGRAM, SOME INFORMATION MAY BE OMITTED. This clinical summary was aggregated from multiple sources. Caution should be exercised in using it in the provision of clinical care. This summary normalizes information from multiple sources, and as a consequence, information in this document may materially change the coding, format and clinical context of patient data. In addition, data may be omitted in some cases. CLINICAL DECISIONS SHOULD BE BASED ON THE PRIMARY CLINICAL RECORDS. [employer] provides no warranty or guarantee of the accuracy or completeness of information in this document.
== END | disposition home or self-care (01) ==
LOC: US 13:58
PROVIDERS: PCP Family Medicine; Referring Provider Urology; Visit Provider Urology
DX: N39.0 Urinary tract infection, site not specified (principal)
CPT/HCPCS: 76770

== ENCOUNTER 2024-03-27 09:17 | Day surgery (SDC) | payer OTHER, SELFPAY ==
[2024-03-27] VITALS (9 sets, daily range): BP systolic 99–111; BP diastolic 56–74; PULSE 62–82; RESP 14–18; TEMP 36.3–36.6; O2SAT 100; BMI 24.5
--- NOTE | 2024-03-27 09:27 | HP.PCM_ITS ---
History and Physical Date of Admission: 03/27/24 Date of Service: 02/27/24 MR#: [id number] Acct: [id number] Name: KARIS BRIGHT Rep #: [id number] : 2000 Provider: Dr. Dianne Roberto MD Age/Sex: 23/F Location: [facility] Status: Signed Intake Vital Signs 09/02/2309:27 01/28/2410:50 02/26/2413:17 Height 5 ft 6 in 5 ft 6 in Weight: 155 lb BP 106/74 Blood Pressure Location Rt brachial Position Sitting Respiration 17 Pulse 93 Pulse Source Monitor Temp 97.6 F L Temp Source Temporal Pulse Oximetry (%) 99 Oxygen Delivery Method room air Intake Visit Reasons: CONSTIPATION, BLOOD IN STOOL Chief Complaint: constipation, blood in stool Is patient in pain?: No Allergies No Known Allergies Allergy (Verified 02/27/24 13:20) Medications ?Medication ?Instructions ?Recorded ?Confirmed ?Type buspirone 10 mg tablet 10 mg PO BID 05/25/20 02/27/24 History trazodone 50 mg tablet 50 mg PO DAILY PRN PRN 07/04/22 02/27/24 History ANXIETY-RELATED N/V sertraline 50 mg tablet (Zoloft) 50 mg PO QHS #30 tabs 08/02/22 02/27/24 Rx promethazine 12.5 mg tablet 12.5 mg PO Q6H PRN nausea and 01/30/23 02/27/24 Rx vomiting #60 tabs promethazine 25 mg tablet 25 mg PO Q6H PRN nausea and 02/01/23 02/27/24 Rx vomiting #60 tabs medroxyprogesterone 150 mg/mL 150 mg IM [id number] #1 mL 10/06/23 02/27/24 Rx intramuscular syringe (Depo-Provera) PFSH Medical History Depression with anxiety Easy bruising Excessive bleeding Gastric reflux History of blood clots History of DVT (deep vein thrombosis) Marijuana use PONV (postoperative nausea and vomiting) Restless legs Smoker SOB (shortness of breath) sudden weight loss Surgical History Hx of colonoscopy History of esophagogastroduodenoscopy (EGD) History of repair of anterior cruciate ligament of left knee Family History Mother High cholesterolFather High cholesterol Social History current occupational status: employed current occupation: [employer] Smoking Status: Never smoker second hand exposure: No alcohol intake: never substance use type: does not use caffeine: Yes what type of physical activity do you participate in: none frequency: does not exercise seatbelt use: always additional social history: roula - Naif HPI HPI HPI: 23-year-old female presents due to bright red blood per rectum. Patient did previously have a colonoscopy in 2019 that was negative due to having diarrhea. Patient states about 2 weeks ago she had bright red blood per rectum with wiping and some in the toilet and moderate amount. Patient denies any pain with bowel movements at that time. Patient states she was having normal bowel movements that were not constipated. Then the next week patient states she is having diarrhea but no blood with that and more recently patient has been constipated and not really going straining some but again no bright red blood seen. Patient denies any abdominal pain with this. ROS General General: No weight change, appetite, fatigue, colon cancer or breast cancer HEENT HEENT: No difficulty swallowing, eye injury, eye surgery, swollen glands or hoarseness Endo Endocrine: No thyroid disease, diabetes mellitus, thyroid cancer, Hair loss, heat intolerance or cold intolerance Skin Skin: No rash or changing moles Musc Musculoskeletal: No back problems, arthritis, rheumatoid arthritis, gout or joint pain Cardio Cardiovascular: No murmur, pacemaker, heart disease, atrial fibrillation, high blood pressure, heart attack, heart stent, palpitations, shortness of breat with exertion or chest pain Psych Psychiatric: Yes depression and anxiety; No hearing voices Resp Respiratory: No shortness of breath, No sleep apnea, No cough, No COPD, No asthma, No emphysema and No wheezing Gastro Gastrointestinal: Yes abdominal pain, Yes nausea or vomiting, Yes diarrhea, Yes constipation, Yes blood in stool, Yes acid reflux, No hemorrhoids, No ulcers, No gallbladder problem and No black,tarry stools Nguyễn Hematologic: No blood thinners, No blood disorders, No bleeding, No anemia and Yes blood clots Additional Details: 2016 after knee surgery Neuro Neurologic: No numbness and No tingling Exam Const General: cooperative, healthy appearing, comfortable and no acute distress HENMT Head: normocephalic and atraumatic Neck Neck: supple Resp Effort & Inspection: normal respiratory effort Cardio Rate: regular rate GI Inspection: non-distended Palpation: soft and nontender Skin General: no rashes or lesions noted Neuro General: CN's II-XI intact bilaterally Extrem General: normal to inspection Psych Mental Status: mental status grossly normal Attitude: cooperative Assessment and Plan Assessment and Plan (1) Rectal bleeding: Status: Acute Orders: Orders Colonoscopy 03/27/24 Plan I have discussed the above with the patient. I have offered the patient colonoscopy for evaluation. I have explained the risks/benefits of the procedure and described the procedure. I have discussed the risks with the patient, including but not limited to: infection, bleeding, perforation of the GI tract requiring emergency surgery, inability to complete the procedure, injury to any internal organs, complications of anesthesia, etc. - the patient understands and agrees to proceed. I have answered all the patient's questions to the patient's satisfaction and the patient has no further questions. The patient has been given instructions for the colon cleansing preparation. 1 day of clears, MiraLAX Dulcolax split prep if patient is having bowel movement at least every 2 days or less otherwise patient will need additional Dulcolax and possibly another day of clears. Dianne Roberto M.D. Pager: [phone] [facility] [address] [place] [address], [address] [place] [address] Office: [phone] Coding Level of Care Code Off vis,new,level 3 Diagnoses Rectal bleeding K62.5 02/28/24 0939 <Electronically signed by Dianne Roberto MD> Date Dianne Roberto MD
[2024-03-27 09:40] LABS: Internal QC Validated? YES +Cl - CLEAR BKGD; Pregnancy, Urine Negative Negative
[2024-03-27] MEDS: Lactated Ringers 1,000 ML 15 ML IV (09:44)
--- NOTE | 2024-03-27 09:44 | PRE.ANES_ITS ---
ASA Classification* ASA Classification ASA Classification: 2 Assessment & Plan Anesthesia* Anesthesia Assessment Anesthesia Assessment: Discussed sedation and/or anesthesia options, risks, benefits, and alternatives with patient/parents/legal guardian. Questions invited. The patient/parents/legal guardian/POA seems to understand and agrees to proceed with anesthesia plan. Reviewed the physical assessment, medical history, allergy history and patient home medications list prior to surgery/procedure/anesthetic and documented any changes. Performed airway and anesthesia risk assessments. 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 When Was Last Pacemaker Check QUESTION #4 FULL TEXT: You/Your Family Experience fever (hyperthermia) with Anesthesia Last Oral Intake Last Oral intake: Last Oral Intake NPO since 21:30 03/27/24 09:40 Meds taken in AM with sips of No 03/27/24 09:40 water? Meds patient instructed to take am of surgery PONV PONV - agriculture inspector: PONV - agriculture inspector Female Yes 03/20/24 10:39 HX of Motion Sickness Yes 03/20/24 10:39 HX of N/V After Surgery Yes 03/20/24 10:39 Non-Smoker No 03/20/24 10:39 Duration of Surgery greater No 03/20/24 10:39 than 60 minutes Number of Risk Factors 3 03/20/24 10:39 PONV Score Moderate Risk 03/20/24 10:39 Height & Weight Height & Weight: Anesthesia: Height & Weight Height 1.68 m 03/27/24 09:40 Weight: 69 kg 03/27/24 09:40 Body Mass Index (BMI) 24.5 03/27/24 09:40 Respiratory Assessment Respiratory Assessment - agriculture inspector: Respiratory Tract Infection Hx - agriculture inspector Hx Respiratory Tract Infection No 03/20/24 10:39 STOP Sleep Apnea STOP Sleep Apnea - agriculture inspector: STOP Sleep Apnea - agriculture inspector Hx Hypertension No 03/20/24 10:39 Hx Sleep Apnea No 03/20/24 10:39 CPAP BIPAP Do you snore loudly (louder No 03/20/24 10:39 than talking or can be heard Do you often feel tired/ No 03/20/24 10:39 fatigued/ sleepy during daytime? Has anyone observed you stop No 03/20/24 10:39 breathing during sleep? STOP Results Negative 03/20/24 10:39 QUESTION #5 FULL TEXT : Do you snore loudly (louder than talking or can be heard through closed doors)? 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 Specify any problems Hx of Preganancy in last 3 No 03/20/24 10:39 Months Nurse Filling Out Transfusion VCHRISTIN 03/20/24 10:39 & Questions: Date: 03/20/24 03/20/24 10:39 Time: 10:40 03/20/24 10:39 Patient unable to answer at this time (ie. confused, unrespo /Reproduction History /Reproductive History - agriculture inspector: /Reproductive Hx- agriculture inspector Hx Now No 03/20/24 10:39 Gestational Age (in weeks): EDC: Hx Hx Para Hx Section SAB No 03/20/24 10:39 Active Medications Active Medications: Current Medications Generic Name Dose Route Start Last Admin Trade Name Freq PRN Reason Stop Dose Admin Lactated Ringer's 1,000 mls @ 15 mls/hr 03/27/24 09:30 IV .Q48H [facility] Anesthesia Focused Assessment* Temperature: 97.9 F Pulse Rate: 82 Blood Pressure: 111/74 Respiratory Rate: 16 Pulse Ox: 100 Airway Assessment Mouth opens (cm): 3 Mallampati Score: I Focused Labs Anesthesia Preop lab: CBC WBC 4.3 K/mm3 (4.4-11.0) L 09/30/22 09:21 RBC 4.54 M/mm3 (4.2-5.4) 09/30/22 09:21 Hgb 13.4 g/dL (12.0-15.0) 09/30/22 09:21 Hct 42.4 % (37-47) 09/30/22 09:21 Plt Count 193 K/mm3 (150-450) 09/30/22 09:21 CHEMISTRY Potassium 4.0 mmol/L (3.5-5.1) 09/30/22 09:21 Sodium 138 mmol/L (136-145) 09/30/22 09:21 BUN 8 mg/dL (7-18) 09/30/22 09:21 Creatinine 0.67 mg/dL (0.55-1.02) 09/30/22 09:21 Glucose 77 mg/dL (74-106) 09/30/22 09:21 TSH 0.72 uIU/mL (0.358-3.74) 09/30/22 09:21 COAG Urine Test Negative Negative 03/27/24 09:25 Tst Clinic Negative 10/11/22 15:19 Review of Systems (Anesthesia) ROS Narrative System reviewed and no additional complaints, except as documented. [facility] Medical History Vapes nicotine containing substance Marijuana use History of DVT (deep vein thrombosis) Easy bruising Excessive bleeding Restless legs Gastric reflux Smoker PONV (postoperative nausea and vomiting) SOB (shortness of breath) sudden weight loss History of blood clots Depression with anxiety Home Medications ?Medication ?Instructions ?Recorded ?Last Taken ?Type trazodone 50 mg tablet 50 mg PO DAILY PRN PRN 07/04/22 Unknown History ANXIETY-RELATED N/V sertraline 50 mg tablet (Zoloft) 50 mg PO QHS #30 tabs 08/02/22 03/26/24 Rx promethazine 25 mg tablet 25 mg PO Q6H PRN nausea and 02/01/23 Unknown Rx vomiting #60 tabs aluminum chloride 20 % topical 1 applic topical .2 TIMES MONTHLY 03/20/24 Unknown History solution (Drysol) bupropion HCl 300 mg 24 hr tablet, 300 mg PO DAILY 03/20/24 03/26/24 History extended release buspirone 15 mg tablet 15 mg PO BID 03/20/24 03/26/24 History dextroamphetamine-amphetamine 30 1 tab PO DAILY 03/20/24 03/26/24 History mg tablet ondansetron HCl 4 mg tablet 4 mg PO TID 03/20/24 03/26/24 History sulfamethoxazole 400 1 tab PO DAILY 03/20/24 03/26/24 History mg-trimethoprim 80 mg tablet Allergy/AdvReac Type Severity Reaction Status Date / Time No Known Allergies Allergy Verified 03/27/24 09:32 Family History Mother High cholesterol Father High cholesterol Surgical History History of hysteroscopy Hx of colonoscopy History of esophagogastroduodenoscopy (EGD) History of repair of anterior cruciate ligament of left knee Social History current occupational status: employed current occupation: [employer] Smoking Status: Current some day smoker tobacco type: e-cigarettes second hand exposure: No alcohol intake: never substance use type: does not use caffeine: Yes what type of physical activity do you participate in: none frequency: does not exercise seatbelt use: always additional social history: roula Disla
--- NOTE | 2024-03-27 10:32 | OP.CCLET_ITS ---
03/27/2024 Edson Khan MD [address] [phone] Re : Colonoscopy procedure for Sayra Avila Dear Dr. Khan This procedure was performed on Wednesday, March 27, 2024. My impressions and recommendations are as follows: Impressions : - Hemorrhoids found on perianal exam. - Non-bleeding internal hemorrhoids. - The entire examined colon is normal. - No specimens collected. Recommendations : - Discharge patient to home. - Resume previous diet. - Continue present medications. - Repeat colonoscopy at age 45. My findings are described in the full procedure note, which is enclosed. If I can be of further assistance, please feel free to contact me at Doctor phone number(s): , Work: . Sincerely, MD Dianne Dias MD 03/27/2024 10:32:21 AM This report has been signed electronically.
--- NOTE | 2024-03-27 10:32 | OP.COLON_ITS ---
Patient Name: Sayra Avila Procedure Date: 03/27/2024 10:02 AM Date of : 2000 Age: 23 Procedure: Colonoscopy Indications: Rectal bleeding Providers: Dianne Roberto MD Medicines: Monitored Anesthesia Care Patient Profile: Last Colonoscopy: September 2019. Complications: No immediate complications. Procedure: Pre-Anesthesia Assessment: - Prior to the procedure, a History and Physical was performed, and patient medications and allergies were reviewed. The patient's tolerance of previous anesthesia was also reviewed. The risks and benefits of the procedure and the sedation options and risks were discussed with the patient. All questions were answered, and informed consent was obtained. Prior Anticoagulants: The patient has taken no anticoagulant or antiplatelet agents. ASA Grade Assessment: Per anesthesia. After reviewing the risks and benefits, the patient was deemed in satisfactory condition to undergo the procedure. After I obtained informed consent, the scope was passed under direct vision. Throughout the procedure, the patient's blood pressure, pulse, and oxygen saturations were monitored continuously. The colonoscope was introduced through the anus and advanced to the cecum, identified by appendiceal orifice and ileocecal valve. The colonoscopy was performed without difficulty. The patient tolerated the procedure well. The quality of the bowel preparation was good. Scope In: 10:11:32 AM Scope Withdrawal Time 0 hours 8 minutes 2 seconds Scope Out: 10:24:10 AM Total Procedure Duration Time 0 hours 12 minutes 38 seconds Findings: Hemorrhoids were found on perianal exam. Non-bleeding internal hemorrhoids were found. The hemorrhoids were Grade I (internal hemorrhoids that do not prolapse). The entire examined colon appeared normal. Impression: - Hemorrhoids found on perianal exam. - Non-bleeding internal hemorrhoids. - The entire examined colon is normal. - No specimens collected. Recommendation: - Discharge patient to home. - Resume previous diet. - Continue present medications. - Repeat colonoscopy at age 45. Procedure Code(s): --- Professional --- 64312, PT, Colonoscopy, flexible; diagnostic, including collection of specimen(s) by brushing or washing, when performed (separate procedure) Diagnosis Code(s): --- Professional --- K64.0, First degree hemorrhoids K62.5, Hemorrhage of anus and rectum CPT copyright 2021 [employer]. All rights reserved. The codes documented in this report are preliminary and upon java developer architect review may be revised to meet current compliance requirements. MD Dianne Dias MD 03/27/2024 10:32:21 AM This report has been signed electronically. Number of Addenda: 0 Note Initiated On: 03/27/2024 10:02 AM
--- NOTE | 2024-03-27 10:33 | PCM.POST.ANE ---
Anesthesia: Postop Eval I Current Vital Signs Temperature: 97.3 F Pulse Rate: 65 Blood Pressure: 101/56 Respiratory Rate: 14 Pulse Ox: 100 Oxygen Delivery Method: Room Air Assessment Airway patent: Yes Spontaneous unlabored respirations: Yes Mental status: Asleep nausea: No Vomiting: No Anesthesia Complication: No Fluid Hydration Crystalloid volume administer (ml): 600 Total IV fluid infused: 600 Progress Note Anesthesia document: Postop Eval 1 completed: Yes
--- NOTE | 2024-03-27 11:08 | PCM.POSTANE2 ---
Anesthesia Postop Eval I Sum Postop Eval Completion status Anesthesia document: Postop Eval 1 completed: Yes Anesthesia Postop Eval I Summary Anesthesia Postop Eval I Summary: Anesthesia Postop Eval I: Assessment Summary Airway patent Yes 03/27/24 10:34 [email or web address] Spontaneous unlabored Yes 03/27/24 10:34 [email or web address] respirations Mental status Asleep 03/27/24 10:34 [email or web address] nausea No 03/27/24 10:34 [email or web address] Vomiting No 03/27/24 10:34 [email or web address] Anesthesia Postop Eval I: Fluid Summary Crystalloid volume administer 600 03/27/24 10:34 [email or web address] (ml) Colloids volume administered ( ml) Blood Product volume administered (ml) Total IV fluid infused 600 03/27/24 10:34 [email or web address] Anesthesia Postop Eval I: Summary Notes Anesthesia Complication No 03/27/24 10:34 [email or web address] Anesthesia Complication Comment: Post-operative progress note Anesthesia: Postop Eval II Evaluation Mental status: Awake Pain Level: 0 nausea: No Vomiting: No Complications Anesthesia Complication: No
== END 2024-03-27 11:17 | disposition home or self-care (01) ==
LOC: EN 09:18 → AC 09:19
PROVIDERS: Anesthesiology; PCP Family Medicine; Referring Provider Family Medicine; Visit Provider Surgery
PROC: 0DJD8ZZ Inspection of Lower Intestinal Tract, Via Natural or Artificial Opening Endoscopic (ICD-10-PCS; CPT 45378; principal; 2024-03-27 10:25)
DX: K64.0 First degree hemorrhoids (principal); K62.5 Hemorrhage of anus and rectum; K21.9 Gastro-esophageal reflux disease without esophagitis; F32.A Depression, unspecified; K64.4 Residual hemorrhoidal skin tags; F41.9 Anxiety disorder, unspecified
CPT/HCPCS: 45378; 81025; J7120; J2405

== ENCOUNTER → 2024-09-26 | Outpatient (CLI) | payer OTHER, SELFPAY ==
[2024-09-26 15:48] LABS: Estradiol 35.5 pg/mL; Follicle Stimulating Hormone 5.5 mIU/mL; T4 Free Direct 1.39 ng/dL (0.76-1.46); Thyroid Stim Hormone (TSH) 0.456 uIU/mL (0.358-3.740)
[2024-09-26 16:25] LABS: HIV - WCH Non-Reactive (Nonreactive); Hepatitis C Antibody Non-Reactive (Nonreactive); Syphilis Antibodies Non-reactive
[2024-09-30 09:22] LABS: Thyroid Peroxidase AB 69 IU/mL (0-34)
[2024-09-30 20:07] LABS: Chlamydia By Nucleic Acid AMP Negative (Negative); Gonococcus By Nucleic Acid AMP Negative (Negative)
== END | disposition home or self-care (01) ==
LOC: BWCLAB 13:34
PROVIDERS: PCP Family Medicine; Referring Provider Nurse Practitioner Women's Health; Visit Provider Nurse Practitioner Women's Health
DX: N91.5 Oligomenorrhea, unspecified (principal); Z13.29 Encounter for screening for other suspected endocrine disorder; Z20.2 Contact with and (suspected) exposure to infections with a predominantly sexual mode of transmission; Z11.3 Encounter for screening for infections with a predominantly sexual mode of transmission
CPT/HCPCS: 36415; 82670; 83001; 84439; 84443; 86376; 86695; 86696; 86703; 86780; 86803; 87491; 87591

== ENCOUNTER → 2024-10-30 | Outpatient (CLI) | payer OTHER, SELFPAY ==
[2024-11-01 04:07] LABS: Thyroid Peroxidase AB 58 IU/mL (0-34)
== END | disposition home or self-care (01) ==
PROVIDERS: PCP Family Medicine; Referring Provider Nurse Practitioner Women's Health; Visit Provider Nurse Practitioner Women's Health
DX: Z13.29 Encounter for screening for other suspected endocrine disorder (principal)
CPT/HCPCS: 36415; 86376

== ENCOUNTER → 2025-05-24 | Outpatient (CLI) | payer OTHER, SELFPAY | END | disposition home or self-care (01) | LOC: LABSPEC 05-26 08:33 | PROVIDERS: PCP Family Medicine; Visit Provider Nurse Practitioner Family | DX: R82.90 Unspecified abnormal findings in urine (principal) | CPT/HCPCS: 87086 ==

== ENCOUNTER 2025-06-21 22:26 | Emergency (ER) | payer OTHER, SELFPAY ==
[2025-06-21 22:27] VITALS: BP 127/87; PULSE 110; RESP 19; TEMP 36.9; O2SAT 100; BMI 25.0
[2025-06-21 22:31] VITALS: BP 121/78; PULSE 110; RESP 15; TEMP 36.9; O2SAT 99
--- NOTE | 2025-06-21 22:50 | EX.ED.DYSGE1 ---
HPI History of Present Illness Chief Complaint: Cellulitis Informant: patient Narrative Narrative: Patient is a 24-year-old female with past medical history of anxiety and depression. She states that she had a scab on her right forearm. She states then she spent 3 days swimming in a [place]. She reports after this she noticed that the area was becoming painful red and swollen. She denies any active discharge from the site and she denies any fevers associated with it. She states she does not have a history of immunosuppression but with concern for developing infection comes in for evaluation [facility] Medical History Vapes nicotine containing substance Marijuana use History of DVT (deep vein thrombosis) Easy bruising Excessive bleeding Restless legs Gastric reflux Smoker PONV (postoperative nausea and vomiting) SOB (shortness of breath) sudden weight loss History of blood clots Depression with anxiety Home Medications ?Medication ?Instructions ?Recorded ?Last Taken ?Type trazodone 50 mg tablet 50 mg PO DAILY PRN PRN 07/04/22 Unknown History ANXIETY-RELATED N/V aluminum chloride 20 % topical 1 applic topical .2 TIMES MONTHLY 03/20/24 Unknown History solution (Drysol) bupropion HCl 300 mg 24 hr tablet, 300 mg PO DAILY 03/20/24 03/26/24 History extended release buspirone 15 mg tablet 15 mg PO BID 03/20/24 03/26/24 History dextroamphetamine-amphetamine 30 1 tab PO DAILY 03/20/24 03/26/24 History mg tablet ondansetron HCl 4 mg tablet 4 mg PO TID PRN nausea and vomiting 03/20/24 03/26/24 History clindamycin HCl 300 mg capsule 300 mg PO 4X/DAY 10 days #40 caps 06/21/25 Unknown Rx (Cleocin HCl) hydroxyzine HCl 50 mg tablet 50 mg PO TID PRN PRN anxiety 06/21/25 Unknown History Allergy/AdvReac Type Severity Reaction Status Date / Time No Known Allergies Allergy Verified 06/21/25 22:27 Family History Mother High cholesterol Father High cholesterol Surgical History History of hysteroscopy Hx of colonoscopy History of esophagogastroduodenoscopy (EGD) History of repair of anterior cruciate ligament of left knee Social History current occupational status: employed current occupation: [employer] Smoking Status: Current some day smoker tobacco type: e-cigarettes second hand exposure: No alcohol intake: never substance use type: does not use caffeine: Yes what type of physical activity do you participate in: none frequency: does not exercise seatbelt use: always additional social history: fience - Naif ROS ROS ED Constitutional Constitutional ED: Denies chills or fever(s) Cardiovascular Cardiovascular: Denies chest pain Respiratory/Chest Respiratory/Chest: Denies cough or dyspnea Gastrointestinal Gastrointestinal: Denies abdominal pain, diarrhea, nausea or vomiting Musculoskeletal Musculoskeletal: Reports other Details: Positive right forearm pain Integumentary Reports other Details: Positive redness and swelling right forearm Neurologic Neurologic: Denies headache(s) or paresthesias Psychiatric Psychiatric: Reports anxiety and depression Hematologic/Lymphatic Hematologic/Lymphatic: Denies easy bleeding or easy bruising Allergic/Immunologic Allergic/Immunologic ED: Denies urticaria EXAM Physical Exam Const Vital Signs: 06/21/25 22:27 06/21/25 22:31 06/21/25 23:06 Temperature 98.4 F 98.4 F 98.2 F Temperature Source Oral Oral Pulse Rate 110 H 110 H 95 Respiratory Rate 19 H 15 15 Blood Pressure 127/87 H 121/78 H 121/78 H Blood Pressure Mean 100 92 92 Pulse Ox 100 99 99 Oxygen Delivery Method Room Air Room Air Positive well nourished and well developed General Appearance ED: well developed HEENT HEENT Narrative: Normocephalic atraumatic Eyes PERRL and EOMs intact bilaterally General Eye ED: Negative for scleral icterus Neck supple Resp normal respiratory effort and clear to auscultation bilaterally Cardio regular rate and regular rhythm Extremity Extremity Narrative: Right upper extremity is neurovascularly intact; AIN/PIN are intact and normal To the dorsal aspect of the distal third of the right forearm there is a 2 cm circular area of erythema and asymmetric warmth with a small less than half centimeter area of induration concerning for early abscess. There is no lymphangitic streaking noted. All compartments are soft and compressible going against compartment syndrome Remainder of the exam is normal Neuro oriented x3, CN's II-XII intact bilaterally and no sensory deficits noted Sensorium / Orientation: alert Motor Exam: strength 5/5 throughout Psych mental status grossly normal Skin Skin Narrative: Soft tissue lesion to the right distal forearm as documented above MDM MDM MDM Narrative Medical decision making narrative: Patient presented to the ER afebrile. She reported roughly 1 to 2 days of increasing redness swelling and pain to the dorsal aspect of the right forearm without trauma. Differential diagnosis is for cellulitis versus abscess versus insect bite/sting. By physical exam this is cellulitis with early abscess but as there is no signs of systemic involvement such as fever or lymphangitic streaking I do not feel the need for laboratory studies especially as patient denies any history of immunosuppression. The abscess is early and small in nature and therefore I do not feel amenable to incision and drainage. Therefore the patient be started on antibiotics secondary to the infection but without signs of systemic infection or need for incision and drainage there is no need for further intervention and she is otherwise safe for discharge History & Record Review Discussion w/independent historian: Patient Discharge Plan Triage Chief Complaint: Cellulitis ED Provider: Calixto Lagunas Dx/Rx/DC Orders Clinical Impression: Cellulitis of right forearm, Depression with anxiety Instructions: Cellulitis Dc Prescriptions: New clindamycin HCl [Cleocin HCl] 300 mg capsule 300 mg PO 4X/DAY 10 Days Qty: 40 0RF No Action trazodone 50 mg Tablet 50 mg PO DAILY PRN PRN (Reason: ANXIETY-RELATED N/V) hydroxyzine HCl 50 mg tablet 50 mg PO TID PRN PRN (Reason: anxiety) ondansetron HCl 4 mg tablet 4 mg PO TID PRN (Reason: nausea and vomiting) dextroamphetamine-amphetamine 30 mg tablet 1 tab PO DAILY buspirone 15 mg tablet 15 mg PO BID bupropion HCl 300 mg tablet extended release 24 hr 300 mg PO DAILY Drysol 20 % solution 1 applic topical .2 TIMES MONTHLY Primary Care Provider: Edson Khan Referrals: Edson Khan MD [Primary Care Provider] - Activity Restrictions/Additional Instructions: Please take the antibiotic as directed to help resolve your infection. It would typically take 2 to 3 days before you notice improvement. If you develop a fever the redness begins to spread rapidly despite taking the medication or you have lymphangitic streaking please return to the ER for repeat evaluation. Print Language: Yi Disposition Disposition: Home, Self Care Discharge Date/Time: 06/21/25 23:07
--- OUTSIDE RECORDS SUMMARY | 2025-06-21 22:52 | XMS RPT_ITS | CCD ---
Author Organization [facility] Care Team Providers Care Dyed Raw Stock Blower Feeder Name Role Phone SAMMY Webster Primary Care Provider SAMMY Webster Attending Provider SAMMY Webster Referring Provider Dr. Eve Vasquez Attending Provider Dr. Eve Vasquez Other Provider Dr. Edson Khan Primary Care Provider Dr. Edson Khan Primary Care Provider [phone] Dr. Edson Khan Referring Provider Gricelda ASHRAF VISITOR SERVICES ASSOCIATE-C Olivia Attending Provider Dr. Edson Khan Primary Care Provider Dr. Edson Khan Referring Provider YOSELIN Adorno Attending Provider SAMMY Faria Attending Provider [phone] Edson Khan MD Primary Care Provider [phone] Dr. Hilary Collins MD Attending Provider Dr. Edson Khan MD Referring Provider [phone] Wyatt ASHRAF-CMary Anne Attending Provider Dr. Hilary Collins MD Attending Provider Wyatt VISITOR SERVICES ASSOCIATE-CMary Anne Attending Provider Fabián Webster Attending Unavailable Edson Khan Primary Care Unavailable Edson Khan Referring Unavailable Edson Khan Primary Care Unavailable Olivia Madison Attending Unavailable Olivia Madison Referring Unavailable Edson Khan Primary Care Unavailable Olivia Madison Attending Unavailable Olivia Madison Referring Unavailable Edson Khan Primary Care Unavailable Mary Anne Schneider Attending Unavailable Erin, Edson Referring Unavailable Olivia Madison Attending Unavailable Erin, Edson Primary Care Unavailable Mary Anne Schneider Attending Unavailable Khan, Edson Primary Care Unavailable Khan, Edson Referring Unavailable Khan, Edson Primary Care Unavailable Mary Anne Schneider Attending Unavailable Khan, Edson Referring Unavailable Medications Current Medications Medication Drug Class(es) Dates Sig (Normalized) Sig (Original) aluminum chloride 200 mg/ml topical solution (2 sources) Start: 03-20-2024 Aluminum Chloride (Drysol) 20 % solution Active 1 NMA TOPICAL .2 TIMES MONTHLY March 20, 2024 12:00am amphetamine aspartate 7.5 mg / amphetamine sulfate 7.5 mg / dextroamphetamine saccharate 7.5 mg / dextroamphetamine sulfate 7.5 mg oral tablet (2 sources) Central Nervous System Stimulant Start: 03-20-2024 Dextroamphetamin e-Amphetamine 30 mg tablet Active 1 {tbl} PO DAILY March 20, 2024 12:00am 24 hr buPROPion hydrochloride 300 mg extended release oral tablet (2 sources) Aminoketone Start: 03-20-2024 take 1 tablet by mouth once daily Bupropion Hcl 300 mg tablet extended release 24 hr Active 300 mg PO DAILY March 20, 2024 12:00am busPIRone hydrochloride 15 mg oral tablet (13 sources) Start: 03-20-2024 take 1 tablet by mouth twice daily Buspirone 15 mg tablet Active 15 mg PO TWICE A DAY March 20, 2024 12:00am Start: 05-25-2020 End: 03-20-2024 take 1 tablet by mouth twice daily Buspirone 10 mg tablet Discontinued 10 mg PO TWICE A DAY May 25, 2020 12:00am March 20, 2024 10:30am FLUoxetine 20 mg oral capsule (3 sources) Serotonin Reuptake Inhibitor Start: 05-25-2020 take 20 mg by mouth once daily Fluoxetine Active 20 MG PO DAILY May 25, 2020 3:16pm ondansetron 4 mg oral tablet (13 sources) Serotonin-3 Receptor Antagonist Start: 03-20-2024 take 1 tablet by mouth three times daily Ondansetron Hcl 4 mg tablet Active 4 mg PO THREE TIMES A DAY March 20, 2024 12:00am Start: 12-20-2019 End: 05-25-2020 take 1 tablet by mouth every eight hours as needed for nausea Ondansetron 4 MG tablet Discontinued 4 mg PO EVERY 8 HOURS NEEDED as needed for Nausea December 20, 2019 1:00am May 25, 2020 3:15pm phenazopyridine hydrochloride 100 mg oral tablet (20 sources) Start: 05-24-2025 take 1 tablet by mouth after mealtime Phenazopyridine (Pyridium) 100 mg tablet Active 100 mg PO after meals 3 0 May 24, 2025 12:00am Start: 10-09-2019 End: 05-25-2020 take 1 tablet by mouth three times daily as needed for muscle spasms Phenazopyridine 200 MG tablet Discontinued 200 mg PO THREE TIMES A DAY as needed for Bladder Spasm 6 0 December 20, 2019 11:39am May 25, 2020 3:14pm promethazine hydrochloride 25 mg oral tablet (20 sources) Phenothiazine Start: 02-01-2023 take 1 tablet by mouth every six hours as needed for nausea and vomiting Promethazine 25 mg tablet Active 25 mg PO EVERY 6 HOURS as needed for nausea and vomiting 60 6 February 01, 2023 8:19am Start: 01-30-2023 End: 03-27-2024 take 1 tablet by mouth every six hours as needed for nausea and vomiting Promethazine 12.5 mg tablet Discontinued 12.5 mg PO EVERY 6 HOURS as needed for nausea and vomiting 60 0 January 30, 2023 12:00am March 27, 2024 9:33am Start: 06-16-2021 inject 25 mg by intr amuscular injection once promethazine 50 mg/mL injection solution Active 25 MG IM ONCE 0.5 June 16, 2021 6:53am Start: 06-16-2021 End: 06-09-2022 take 1 tablet by mouth three times daily as needed for nausea and vomiting Promethazine 25 mg tablet Discontinued 25 mg PO THREE TIMES A DAY as needed for nausea and vomiting 14 0 June 16, 2021 12:00am June 09, 2022 1:08pm traZODone hydrochloride 50 mg oral tablet (8 sources) Serotonin Reuptake Inhibitor Start: 07-04-2022 take 1 tablet by mouth once daily as needed for anxiety Trazodone 50 mg Tablet Active 50 mg PO DAILY NEEDED as needed for ANXIETY-RELATED N/V July 04, 2022 12:00am Completed/Discontinued Medications Medication Drug Class(es) Dates Sig (Normalized) Sig (Original) adapalene 0.001 mg/mg / benzoyl peroxide 0.025 mg/mg topical gel (11 sources) Retinoid Start: 07-31-2017 End: 05-15-2018 Adapalene-Benzoyl Peroxide 45 GM gel with pump Discontinued 45 g TP AT BEDTIME July 31, 2017 12:00am May 15, 2018 3:24pm cefdinir 300 mg oral capsule (11 sources) Cephalosporin Antibacterial Start: 12-20-2019 End: 05-25-2020 take 1 capsule by mouth every twelve hours Cefdinir 300 MG capsule Discontinued 300 mg PO Q12H December 20, 2019 1:00am May 25, 2020 3:13pm levonorgestrel 0.646049 mg/hr intrauterine system (20 sources) Progestin, Progestin-containin g Intrauterine Device Start: 05-15-2018 End: 06-09-2022 Levonorgestrel (Mirena) 20 mcg/24 hours (5 yrs) 52 mg intrauterine device Discontinued 1 NMA INTRA-UTER ONCE May 25, 2020 12:00am June 09, 2022 1:08pm as a single dose Start: 05-15-2018 End: 06-09-2022 Levonorgestrel (Mirena) 20 m cg/24 hours (5 yrs) 52 mg intrauterine device Discontinued 1 DEVICE INTRA-UTER ONCE May 24, 2020 11:00pm June 09, 2022 12:08pm as a single dose 1 ml medroxyPROGESTERone acetate 150 mg/ml prefilled syringe (10 sources) Progestin Start: 08-02-2022 End: 03-20-2024 inject 150 mg by intramuscular injection every three months Medroxyprogesterone (Depo-Provera) 150 mg/mL syringe Discontinued 150 mg IM every 3 months 1 October 06, 2023 11:39am March 20, 2024 10:30am metroNIDAZOLE 500 mg oral tablet (11 sources) Nitroimidazole Antimicrobial Start: 05-15-2018 End: 09-25-2018 take 1 tablet by mouth twice daily Metronidazole (Flagyl) 500 mg tablet Discontinued 500 mg PO TWICE A DAY 14 0 May 15, 2018 12:00am September 25, 2018 4:01pm nitrofurantoin, macrocrystals 25 mg / nitrofurantoin, monohydrate 75 mg oral capsule (2 sources) Nitrofuran Antibacterial Start: 05-24-2025 End: 05-29-2025 take 1 capsule by mouth every twelve hours at mealtime Nitrofurantoin Monohyd/M-Cryst (Macrobid) 100 mg capsule Discontinued 100 mg PO Q12H 10 5 0 May 24, 2025 12:00am May 28, 2025 12:00am May 29, 2025 12:08am must administer with a meal/food norethindrone acetate 5 mg oral tablet (20 sources) Start: 05-25-2020 End: 04-28-2021 take 1 tablet by mouth twice daily, then take 1 tablet by mouth once daily Norethindrone Acetate (Aygestin) 5 mg tablet Discontinued 5 mg PO .COMPLEX 30 0 May 25, 2020 12:00am April 28, 2021 3:43pm 5 mg PO BID x 3 days and then once daily for remainder Start: 05-06-2019 End: 09-27-2019 take 1 tablet by mouth twice daily, then take 1 tablet by mouth once daily Norethindrone Acetate (Aygestin) 5 mg tablet Discontinued 5 mg PO .COMPLEX 30 0 May 06, 2019 12:00am September 27, 2019 11:27am 5 mg PO BID x 3 days and then once daily for remainder omeprazole 20 mg delayed release oral capsule (11 sources) Proton Pump Inhibitor Start: 04-28-2021 End: 06-09-2022 take 1 capsule by mouth once daily Omeprazole 20 mg capsule,delayed release(DR/EC) Discontinued 20 mg PO DAILY April 28, 2021 12:00am June 09, 2022 1:08pm pantoprazole 40 mg delayed release oral tablet (11 sources) Proton Pump Inhibitor Start: 10-03-2019 End: 05-25-2020 take 1 tablet by mouth once daily Pantoprazole (Protonix) 40 mg tablet,delayed release (DR/EC) Discontinued 40 mg PO DAILY 30 0 October 03, 2019 1:00am May 25, 2020 3:15pm sertraline 50 mg oral tablet (20 sources) Serotonin Reuptake Inhibitor Start: 06-09-2022 End: 09-26-2024 take 1 tablet by mouth at bedtime Sertraline (Zoloft) 50 mg tablet Discontinued 50 mg PO AT BEDTIME July 04, 2022 1:41pm August 02, 2022 10:18am Start: 05-15-2018 End: 09-25-2018 take 1 tablet by mouth once daily Sertraline (Zoloft) 50 mg tablet Discontinued 50 mg PO daily May 15, 2018 12:00am September 25, 2018 4:01pm spironolactone 50 mg oral tablet (11 sources) Aldosterone Antagonist Start: 04-28-2021 End: 03-22-2023 take 1 tablet by mouth once daily Spironolactone 50 mg tablet Discontinued 50 mg PO DAILY April 28, 2021 12:00am March 22, 2023 9:49am ACNE sulfamethoxazole 400 mg / trimethoprim 80 mg oral tablet (5 sources) Dihydrofolate Reductase Inhibitor Antibacterial, Sulfonamide Antimicrobial Start: 03-20-2024 End: 09-21-2024 Sulfamethoxazole-Tr imethoprim 400-80 mg tablet Discontinued 1 {tbl} PO DAILY March 20, 2024 12:00am September 21, 2024 2:34pm Start: 09-02-2023 End: 02-27-2024 Sulfamethoxazole-Trimethopri m 800-160 mg tablet Discontinued 1 {tbl} PO TWICE A DAY 6 September 02, 2023 1:00am February 27, 2024 1:20pm Start: 09-02-2023 take 1 tablet by ebony twice daily Sulfamethoxazole-Trimethoprim Active 1 T ABLET PO TWICE A DAY September 02, 2023 12:00am traMADol hydrochloride 50 mg oral tablet (10 sources) Opioid Agonist Start: 03-26-2022 End: 06-09-2022 take 1 tablet by mouth every four hours as needed for pain Tramadol 50 MG tablet Discontinued 50 mg PO EVERY 4 HOURS NEEDED as needed for Pain 18 3 0 March 26, 2022 12:00am June 09, 2022 1:07pm Toothache Other specified disorders of teeth and supporting structures Problems Active Problems Problem Classification Problem Date Documented Da te Episodic/Chronic Abdominal pain (5 sources) Right upper quadrant pain; Translations: [Right upper quadrant pain] 09-23-2019 Episodic Anxiety disorders (14 sources) Mixed anxiety and depressive disorder; Translations: [Other specified anxiety disorders] Chronic Complication of device; implant or graft (3 sources) Contraceptive intrauterine device retained; Translations: [Other mechanical complication of intrauterine contraceptive device, initial encounter] Episodic Contraceptive and procreative management (8 sources) Patient encounter status; Translations: [Encounter for contraceptive management, unspecified] Episodic Disorders of teeth and jaw (10 sources) Toothache; Translations: [Other specified disorders of teeth and supporting structures] 04-03-2022 Episodic Gastrointestinal hemorrhage (2 sources) Rectal hemorrhage; Translations: [Hemorrhage of anus and rectum] 02-27-2024 Episodic Genitourinary symptoms and ill-defined conditions (5 sources) Dysuria; Translations: [Dysuria] Onset: 05-24-2025 05-24-2025 Episodic Headache; including migraine (5 sources) Headache; Translations: [Headache] 10-09-2019 Episodic Malaise and fatigue (5 sources) Fatigue; Translations: [Other fatigue] 10-09-2019 Episodic Menstrual disorders (14 sources) Break-through bleeding; Translations: [Excessive and frequent menstruation with irregular cycle] Onset: 10-29-2024 05-25-2020 Chronic Comment on above: likely secondary to atrophy. gcc sent. US shows correct positiong. plan 1 month aygestin and if persistent recommend removal and replacement with eileen Nausea and vomiting (11 sources) Nausea and vomiting; Translations: [Nausea with vomiting, unspecified] 06-16-2021 Episodic Other gastrointestinal disorders (5 sources) Diarrhea; Translations: [Diarrhea, unspecified] 10-09-2019 Episodic Other gastrointestinal disorders (2 sources) Constipation; Translations: [Constipation, unspecified] 02-27-2024 Episodic Other lower respiratory disease (11 sources) Dyspnea; Translations: [Shortness of breath] 10-09-2019 Episodic Other non-traumatic joint disorders (5 sources) Shoulder pain; Translations: [Pain in unspecified shoulder] 10-09-2019 Episodic Other non-traumatic joint disorders (5 sources) Pain in unspecified knee; Translations: [Knee pain] 10-09-2019 Episodic Other nutritional; endocrine; and metabolic disorders (5 sources) Loss of appetite; Translations: [Anorexia] 09-23-2019 Episodic Phlebitis; thrombophlebitis and thromboembolism (11 sources) H/O: thrombosis; Translations: [Personal history of other venous thrombosis and embolism] 09-27-2019 Episodic Residual codes; unclassified (11 sources) Past history of procedure; Translations: [Other specified postprocedural states] 10-09-2019 Episodic Residual codes; unclassified (11 sources) History of colonoscopy; Translations: [Other specified postprocedural states] 10-09-2019 Episodic Spondylosis; intervertebral disc disorders; other back problems (5 sources) Neck pain; Translations: [Cervicalgia] 10-09-2019 Episodic Superficial injury; contusion (6 sources) Contusion of lower limb; Translations: [Contusion of left lower leg, initial encounter] 03-17-2023 Episodic Urinary tract infections (20 sources) Urinary tract infectious disease; Translations: [Urinary tract infection, site not specified] 12-21-2019 Episodic Past or Other Problems Problem Classification Problem Date Documented Date Episodic/Chronic Immunizations and screening for infectious disease (11 sources) At risk of sexually transmitted infection ; Translations: [Contact with and (suspected) exposure to infections with a predominantly sexual mode of transmission] Onset: 09-26-2024 04-28-2021 Episodic Other screening for suspected conditions (not mental disorders or infectious disease) (3 sources) Thyroid function tests abnormal; Translations: [Abnormal results of thyroid function studies] Onset: 11-16-2024 11-04-2024 Episodic Comment on above: elevated antibodies Other upper respiratory disease (1 source) Nasal congestion; Translations: [Nasal congestion] Onset: 09-21-2024 Episodic Other upper respiratory infections (1 source) Acute upper respiratory infection, unspecified; Translations: [Acute upper respiratory infection, unspecified] Onset: 09-21-2024 Episodic Unclassified (11 sources) sudden weight loss 05-14-2022 Results Test Name Value Interpretation Reference Range Facility Urine Cultureon 05-27-2025 [facility] Culture exhibits no growth. Normal [facility] Comment on above: Performed By: #### M 100.7452 #### [facility] [address] [place], [address] Urine cultureOrdered By: Matt Schneider on 05-26-2025 Bacteria identified Cx Nom (U) Culture exhibits no growth. [facility] Urgent Care Visit Reporton 0 05-24-2025 Urgent Care Visit Report [facility] [address], [address] [place] [address] OFFICE VISIT Date of Service: 05/24/25 MR#: [id number] Acct: [id number] Name: KARIS BRIGHT Rep #: [id number] : 2000 Provider: GENESIS Schneider Age/Sex: 24/F Location: [facility] Status: Signed Intake Vital Signs 09/26/24 13:12 05/24/25 13:30 Height 5 ft 6 in BP 100/66 Blood Pressure Location Lt brachial Position Sitting Respiration 14 Pulse 76 Pulse Source NIBP Temp 97.7 F L Temp Source Oral Pulse Oximetry (%) 99 Oxygen Delivery Method room air Intake Visit Reasons: CONCERN FOR UTI Chief Complaint: dysuria, back pain, frequency Insurance Commissioner Required: No Is patient in pain?: Yes Allergies No Known Allergies Allergy (Verified 05/24/25 13:36) Medications ???Medication ???Instructions ???Recorded ???Confirmed ???Type trazodone 50 mg tablet 50 mg PO DAILY PRN PRN 07/04/22 History ANXIETY-RELATED N/V promethazine 25 mg tablet 25 mg PO Q6H PRN nausea and 09/26/24 Rx vomiting #60 tabs aluminum chloride 20 % topical 1 applic topical .2 TIMES MONTHLY 03/20/24 09/26/24 History solution (Drysol) bupropion HCl 300 mg 24 hr tablet, 300 mg PO DAILY 03/20/24 4 History extended release buspirone 15 mg tablet 15 mg PO BID 03/20/24 09/26/24 His tory dextroamphetamine-amphetam ine 30 1 tab PO DAILY 03/20/24 09/26/24 H istory mg tablet ondansetron HCl 4 mg tablet 4 mg PO TID 03/20/24 09/26/24 Hist ory nitrofurantoin 100 mg PO Q12H 5 days #10 caps 07/1005/24/25 Rx monohydrate/macrocrystals 100 mg capsule (Macrobid) phenazopyridine 100 mg tablet 100 mg PO QPC 3 doses #3 tabs 07/1005/24/25 Rx (Pyridium) Is last menstrual period known: No Post menopausal: No Patient : No Have you fallen in the past year?: No Nurse's Note: dysuria, back pain, frequency x 7 hours. denies abd pain, fever. concern for UTI [facility] Medical History Vapes nicotine containing substance Marijuana use History of DVT (deep vein thrombosis) Easy bruising Excessive bleeding Restless legs Gastric reflux Smoker PONV (postoperative nausea and vomiting) SOB (shortness of breath) sudden weight loss History of blood clots Depression with anxiety Surgical History History of hysteroscopy Hx of colonoscopy History of esophagogastroduodenoscopy (EGD) History of repair of anterior cruciate ligament of left knee Family History Mother High cholesterol Father High cholesterol Social History current occupational status: employed current occupation: [employer] Smoking Status: Current some day smoker tobacco type: e-cigarettes second hand exposure: No alcohol intake: never substance use type: does not use caffeine: Yes what type of physical activity do you participate in: none frequency: does not exercise seatbelt use: always additional social history: roula Disla [facility] HPI Chief Complaint: dysuria, back pain, frequency Details: KARIS BRIGHT, is a 24 F who presents to the office today for ? uti -started at 0500 today- took Azo felt better- then sx returned took Azo again around 1145. Also took tylenol. -sx dysuria, urgency, hesitancy, trickling of urine. + back pain- denies abd pain or pelvic pain -no fever or chills -last infection about 3 wks ago- treated with Bactrim -LMP last wk -no change of -was getting UTI's frequent and was seein a urologist but not recent- states has not been getting UTI's until recently ROS Const Constitutional: Positive for other (ROS negative x6 except what was placed in HPI) Exam Const General: cooperative, healthy appearing, comfortable and no acute distress Orientation: alert and oriented x3 Other: -UA inconclusive d/t AZO use -no CVA tenderness -no pain or tenderness with palpation to abdomen -+ pelvic pressure with palpation Coding Level of Care Code Off vis,est,level 3 Diagnoses Dysuria R30.0 Assessment and Plan Assessment and Plan (1) Dysuria: Status: Acute Plan: -UA inconclusive d/t AZO- urine cx sent -take full course of atb even if feeling better unless we call and tell you otherwise- to avoid GI sx or yeast infection eat a yogurt daily or take an otc probiotic -increase water intake avoid caffeine -stop AZO- will send for Pyridium for only 3 doses- advised to avoid use if possible d/t harsh on the kidneys -follow up with urology -Please follow up with your Primary Care Physician for ongoing chronic problems. If symptoms change or worsen, (more content not included)... Normal [facility] Thyroid Peroxidase ABon 01-1 THYR PEROX AB 58 IU/mL High 0-34 [facility] Comment on above: Result Comment: Perf ormed at: CB - [facility] [address] [id number] Heat Sealing Machine Operator: Aramis Buitrago PhD, Phone: [phone] Performed By: #### L 3676.0851 ####[facility] [id number] [place], [address] Chlamydia/GC OWEN aptimaon CHLAMY,NUC ACID Negative Normal Negative [facility] Comment on above: Performed By: #### L 7000.1800 ####[facility] [address] [place], [place], [id number] GC BY NUC ACID Negative Normal Negative [facility] Comment on above: Result Comment: Perf ormed at: =G - [facility] [address] [id number] Heat Sealing Machine Operator: Mounika Hicks MD, Phone: [phone] Performed By: #### L 7000.1800 ####[facility] [address] [place], [address] HSV 1 AND 2 IgGon 09-30-2024 HSV 2 IgG Normal [facility] Comment on above: Result Comment: RESU LT: NON REACTIVE Please note reference interval change Current guidelines and recommendations do not recommend routine screening for HSV-2 in asymptomatic individuals, including those that are . The detection of HSV-2 IgG antibodies in a single sample indicates previous exposure to HSV-2 but does not give information as to the site of HSV infection or the timing of exposure. The predictive value of positive and negative results depends on the population's prevalence and the pretest likelihood of HSV-2. HSV-2 IgG testing performed using the [employer] HSV-2 IgG assay. Performed By: #### L 509.8000, L501.9520, L3400.1610, L3300.1750, L3300.6900, L506.0400, L3890.6005, L3100.5125, L3890.6300 ####[facility] [address] [place], [address] HSV 1 IgG Normal [facility] Comment on above: Result Comment: RESU LT: NON REACTIVE Please note reference interval change HSV-1 IgG testing performed using the [employer] HSV-1 IgG assay. Performed By: #### L 509.8000, L501.9520, L3400.1610, L3300.1750, L3300.6900, L506.0400, L3890.6005, L3100.5125, L3890.6300 ####[facility] [address] [place], [address] Thyroid Peroxidase ABon - THYR PEROX AB 69 IU/mL High 0-34 [facility] Comment on above: Result Comment: Perf ormed at: [facility] [id number] Heat Sealing Machine Operator: Aramis Buitrago PhD, Phone: [phone] Performed By: #### L 509.8000, L501.9520, L3400.1610, L3300.1750, L3300.6900, L506.0400, L3890.6005, L3100.5125, L3890.6300 ####[facility] [address] [place], [place], [id number] Estradiolon 09-26-2024 ESTRADIOL 35.5 pg/mL Normal [facility] Comment on above: Result Comment: NORM AL REFERENCE RANGES FEMALE FOLLICULAR 21.4 - 164.8 pg/mL MID-CYCLE PEAK 49.9 - 367.2 pg/mL LUTEAL 40.2 - 259.0 pg/mL POST-MENOPAUSAL ON MHT <11.0 - 462.1 pg/mL NOT ON MHT <11.0 - 58.3 pg/mL MALE <11.0 - 52.5 pg/mL NOTE: [facility] HAS CONFIRMED THE DRUG FULVETRANT (FASLODEX) MAY CAUSE FALSELY ELEVATED ESTRADIOL RESULTS WHEN USING THIS TEST METHOD. IF PATIENT IS TAKING FULVESTRANT AN ALTERNATIVE METHOD SHOULD BE USED TO DETERMINE ESTRADIOL CONCENTRATION. Performed By: #### L 509.8000, L501.9520, L3400.1610, L3300.1750, L3300.6900, L506.0400, L3890.6005, L3100.5125, L3890.6300 #### [facility] [address] [place], [address] Follicle Stimulating Hormone on 09-26-2024 FSH 5.5 mIU/mL Normal [facility] Comment on above: Result Comment: NORMAL REFERENCE RANGES FEMALE FOLLICULAR 2.3 - 12.6 mIU/mL MID-CYCLE PEAK 5.2 - 17.5 mIU/mL LUTEAL 1.7 - 12.9 mIU/mL POST-MENOPAUSAL ON MHT 5.9 - 72.8 mIU/mL NOT ON MHT 12.7 - 132.2 mlU/mL MALE 0.7 - 10.8 mIU/mL Performed By: #### L 509.8000, L501.9520, L3400.1610, L3300.1750, L3300.6900, L506.0400, L3890.6005, L3100.5125, L3890.6300 #### [facility] [address] [place], [address] HIV - W[facility]on 09-26-2024 HIV Non-Reactive Normal Nonreactive [facility] Comment on above: Order Comment: Reaso n for Exam: std exposure Performed By: #### L 509.8000, L501.9520, L3400.1610, L3300.1750, L3300.6900, L506.0400, L3890.6005, L3100.5125, L3890.6300 #### [facility] [address] [place], [place], [id number] Hepatitis C Antibodyon 09-26 Hepatitis C AB Non-Reactive Normal Nonreactive [facility] Comment on above: Order Comment: Reaso n for Exam: std exposure Result Comment: Non Reactive: < 0.8 Equivocal: >/= 0.8 to < 1.0 Reactive: >/= 1.0 The CDC requires that a reactive/equivocal HCV antibody result be sent out for confirmation. HCV Quant by PCR testing. Performed By: #### L 509.8000, L501.9520, L3400.1610, L3300.1750, L3300.6900, L506.0400, L3890.6005, L3100.5125, L3890.6300 ####[facility] [address] [place], [place], [id number] L509.8000on 09-26-2024 Syphilis Abs Non-Reactive Normal [facility] Comment on above: Order Comment: Reaso n for Exam: std exposure Performed By: #### L 509.8000, L501.9520, L3400.1610, L3300.1750, L3300.6900, L506.0400, L3890.6005, L3100.5125, L3890.6300 #### [facility] [address] 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) Chief Complaint: Annual Insurance Commissioner Required: No Is patient in pain?: No Allergies No Known Allergies Allergy (Verified 09/26/24 13:06) Medications ???Medication ???Instructions ???Recorded ???Confirmed ???Type trazodone 50 mg tablet 50 mg PO DAILY PRN PRN 07/04/22 09/26/24 History ANXIETY-RELATED N/V promethazine 25 mg tablet 25 mg PO Q6H PRN nausea and 02/01/23 09/26/24 Rx vomiting #60 tabs aluminum chloride 20 % topical 1 applic topical .2 TIMES MONTHLY 03/20/24 09/26/24 History solution (Drysol) bupropion HCl 300 mg 24 hr tablet, 300 mg PO DAILY 03/20/24 09/26/24 History extended release buspirone 15 mg tablet 15 mg PO BID 03/20/24 09/26/24 History dextroamphetamine-amphetam ine 30 1 tab PO DAILY 03/20/24 09/26/24 History mg tablet ondansetron HCl 4 mg tablet 4 mg PO TID 03/20/24 09/26/24 History Is last menstrual period known: Yes Last Menstrual Period: 09/10/24 Post menopausal: No Patient : No : No PFSH Medical History Vapes nicotine containing substance Marijuana use History of DVT (deep vein thrombosis) Easy bruising Excessive bleeding Restless legs Gastric reflux Smoker PONV (postoperative nausea and vomiting) SOB (shortness of breath) sudden weight loss History of blood clots Depression with anxiety Surgical History History of hysteroscopy Hx of colonoscopy History of esophagogastroduodenoscopy (EGD) History of repair of anterior cruciate ligament of left knee Family History Mother High cholesterol Father High cholesterol Social History current occupational status: employed current occupation: [employer] Smoking Status: Current some day smoker tobacco type: e-cigarettes second hand exposure: No alcohol intake: never substance use type: does not use caffeine: Yes what type of physical activity do you participate in: none frequency: does not exercise seatbelt use: always additional social history: fience - Naif History 0 Elective abortions Hx Para Spontaneous abortions Hx # Term Pregnancies Ectopic pregnancies Hx # Pregnancies Multiple births # of living children HPI Encounter for routine gynecological examination Details: KARIS BRIGHT is a 23 year old who presents for annual exam. No contraception. Was on depoprovera and last injection was 09/2023. Menses occur about every 8 weeks and concerned with that. New sexual partner. 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 Last PAP: 2022 History of abnormal PAP: no Last mammogram: age 40 Female Reproductive History Last Menstrual Period: 09/10/24 Questions: metorrhagia: No, sexually active: Yes, dyspareunia: No and PCB: No ROS Const Constitutional: Denies fatigue, weight gain or weight loss Cardio Card: Denies chest pain Resp Resp: Denies cough or dyspnea on exertion GI GI: Denies abdominal pain, bloating, change in stool character, constipation or vomiting : Reports as per HPI; Denies difficulty voiding, pelvic pain, urinary frequency, urinary incontinence, urinary urgency, vaginal discharge or vaginal pruritus Exam Const General: cooperative, healthy appearing, no acute distress and well developed Orientation: alert, oriented to person and oriented to place HENVT Head: normal to inspection Neck Neck: normal visual inspection Thyroid: thyroid normal Lymphatic: no lymphadenopathy noted Chest Breast inspection: normal inspection of the breasts and normal inspection of the axillae Breast palpation: normal palpation of the breasts, normal palpation of the axillae and no axillary lymphadenopathy Resp Effort Inspection: normal respiratory effort GI Palpation: soft, no masses and nontender Rectal Exam: deferred External Female Exam: normal external appearance and normal appearance of the urethra Urethra: normal appearance of the urethra and normal palpation Speculum Exam - Vagina: normal appearance of the vagina and normal vaginal discharge Speculum Exam - Cervix: normal appearance of the cervix Bimanual Exam- Vagina Uterus: (more content not included)... Normal [facility] T4 Free Directon 09-26-2024 T4 FREE DIRECT 1.39 ng/dL Normal 0.76-1.46 [facility] Comment on above: Performed By: #### L 509.8000, L501.9520, L3400.1610, L3300.1750, L3300.6900, L506.0400, L3890.6005, L3100.5125, L3890.6300 #### [facility] [address] [place], [place], [id number] Thyroid Stim Hormone (TSH)on 09-26-2024 TSH 0.456 uIU/mL Normal 0.358-3.740 [facility] Comment on above: Performed By: #### L 509.8000, L501.9520, L3400.1610, L3300.1750, L3300.6900, L506.0400, L3890.6005, L3100.5125, L3890.6300 #### [facility] [address] [place], [place], [address] Urgent Care Visit Reporton 1 11-22-2023 Urgent Care Visit Report [facility] [address], [address] [place], [place] [address] OFFICE VISIT Date of Service: 09/21/24 MR#: [id number] Acct: [id number] Name: KARIS BRIGHT Rep #: [id number] : 2000 Provider: GENESIS Schneider Age/Sex: 23/F Location: [facility] [place] Status: Signed Intake Vital Signs 03/27/24 09:40 09/21/24 12:10 Height 5 ft 6 in 5 ft 6 in Weight: 153 lb BMI 24.7 BP 120/80 Position Sitting Pulse 81 Temp 98.6 F Temp Source Oral Pulse Oximetry (%) 98 Oxygen Delivery Method room air Intake Visit Reasons: STREP TEST Allergies No Known Allergies Allergy (Verified 09/21/24 13:33) Medications ???Medication ???Instructions ???Recorded ???Confirmed ???Type trazodone 50 mg tablet 50 mg PO DAILY PRN PRN 07/04/22 09/21/24 History ANXIETY-RELATED N/V sertraline 50 mg tablet (Zoloft) 50 mg PO QHS #30 tabs 08/02/22 09/21/24 Rx promethazine 25 mg tablet 25 mg PO Q6H PRN nausea and 02/01/23 09/21/24 Rx vomiting #60 tabs aluminum chloride 20 % topical 1 applic topical .2 TIMES MONTHLY 03/20/24 09/21/24 History solution (Drysol) bupropion HCl 300 mg 24 hr tablet, 300 mg PO DAILY 03/20/24 09/21/24 History extended release buspirone 15 mg tablet 15 mg PO BID 03/20/24 09/21/24 History dextroamphetamine-amphetam ine 30 1 tab PO DAILY 03/20/24 09/21/24 History mg tablet ondansetron HCl 4 mg tablet 4 mg PO TID 03/20/24 09/21/24 History Nurse's Note: Patient has pain with breathing, ST, congestion, STROUD, SOB. Patient states this has been going on for 3 days. Patient was test yesterday here at the office for Covid,Flu and RSV which we are negative. [facility] Medical History Vapes nicotine containing substance Marijuana use History of DVT (deep vein thrombosis) Easy bruising Excessive bleeding Restless legs Gastric reflux Smoker PONV (postoperative nausea and vomiting) SOB (shortness of breath) sudden weight loss History of blood clots Depression with anxiety Surgical History History of hysteroscopy Hx of colonoscopy History of esophagogastroduodenoscopy (EGD) History of repair of anterior cruciate ligament of left knee Family History Mother High cholesterol Father High cholesterol Social History current occupational status: employed current occupation: [employer] Smoking Status: Current some day smoker tobacco type: e-cigarettes second hand exposure: No alcohol intake: never substance use type: does not use caffeine: Yes what type of physical activity do you participate in: none frequency: does not exercise seatbelt use: always additional social history: fience - Naif HPI HPI Details: KARIS BRIGHT, is a 23 F who presents to the office today for cold sx -sx started on -sx sore throat, cough no mucous, fatigue, ear pain, runny nose -chills no fever -tried so far Dayquil and ibuprofen ROS Const Constitutional: Positive for other (ROS negative x6 except what was placed in HPI) Exam Const General: cooperative, comfortable and no acute distress Orientation: alert, awake and oriented x3 HENMT Head: normal to inspection and normocephalic Ears: hearing grossly normal bilaterally, external ears normal and TM's normal bilaterally Nose: external nose normal and other (+ congestion and rhinorrhea moderate amt ) Face and sinus: normal facial exam, sinuses nontender and face symmetric Mouth: oral mucosae normal, lip normal, tongue normal, oropharynx normal and moist mucous membranes Throat: posterior oropharynx normal, tonsils normal, uvula midline and postnasal drainage Neck Neck: normal visual inspection, full ROM and no lymphadenopathy Resp Effort Inspection: normal respiratory effort, able to speak in complete sentences and symmetric chest movement Auscultation: Bilateral: Clear to Auscultation, Left: Clear to Auscultation and Right: Clear to Auscultation Cardio Rate: regular rate Rhythm: regular rhythm Heart Sounds: S1 normal and S2 normal GI Auscultation: normal bowel sounds Palpation: soft Skin General: no rashes or lesions noted and turgor normal Neuro General: patient alert, patient awake and patient oriented x3 Cognition: normal cognition Speech: speech normal Psych Appearance: grossly normal Mental Status: mental status grossly normal Attitude: cooperative Thought Process: normal Thought Content: normal Coding Level of Care Code Off vis,est,level 3 Diagnoses Viral URI with cough J06.9 Assessment and Plan Assessment and Plan (1) Viral URI with cough: Status: Acute Plan: -Warm salt wate (more content not included)... Normal [facility] Office Visit Reporton 2023 Office Visit Report [facility] [address] [address] OFFICE VISIT Date of Service: 09/20/24 MR#: [id number] Acct: [id number] Patient: KARIS BRIGHT Rep #: [id number] : 2000 Provider: SAMMY Li Age/Sex: 23/F Location: [facility] [place] Status: Signed Employer Purchased Covid Test Note: Patient here today for Covid Testing, requested by their Employer. Assessment and Plan Assessment and Plan Orders: Orders POC Cepheid Covid, FluAB, RSV Today R09.81 - Nasal congestion 09/26/24 0622 Date Fabián CHRISTIANSON Cosigner Signature: Date (if applicable) CC: Normal [facility] Basophil percentageOrdered B y: Mayito Martinez on 09-02-2023 Basophil percentage 10-25 SEEN /hpf 0-5 [facility] Bilirubin Test strip Ql (U)O rdered By: Mayito Martinez on 09-02-2023 Bilirubin Ql (U) 6 mg/dL Negative [facility] Comment on above: COLOR OF URINE MAY A FFECT DIPSTICK RESULTS. Culture, urineOrdered By: Calvin Martinez on 09-02-2023 Bacteria identified Cx Nom (U) Presumptive E. coli [facility] Ketones Test strip Ql (U)Ord ered By: Mayito Martinez on 09-02-2023 Ketones Ql (U) Negative Negative [facility] Mucus LM Ql (Urine sed)Order ed By: Mayito Martinez on 09-02-2023 Mucus Ql (Urine sed) 1+ /hpf [facility] Nitrite Test strip Ql (U)Ord ered By: Mayito Martinez on 09-02-2023 Nitrite Ql (U) Positive Negative [facility] Protein Test strip Ql (U)Ord ered By: Mayito Martinez on 09-02-2023 Protein Ql (U) 30 mg/dl Negative [facility] Squamous epithelial cells de tection in urine sediment by light microscopyOrdered By: Mayito Martinez on 09-02-2023 Epithelial cells.squamous LM Ql (Urine sed) 0-5 SEEN /hpf 5-10 [facility] Urine blood detectionOrdered By: Mayito Martinez on 09-02-2023 RBC Ql (U) 10 /ul Negative [facility] RBC Ql (U) 0-5 SEEN /hpf 0-5 [facility] Urine clarityOrdered By: Mahad Martinez on 09-02-2023 Clarity (U) Sl. Cloudy Clear [facility] Urine color determinationOrd ered By: Mayito Martinez on 09-02-2023 Color (U) SEE COMMENT BELOW Yellow [facility] Comment on above: Visual Urine Color: ORANGE Urine glucose detectionOrder ed By: Mayito Martinez on 09-02-2023 Glucose Ql (U) Normal mg/dl Normal [facility] Urine leukocyte esterase det ection by dipstickOrdered By: Mayito Martinez on 09-02-2023 Leukocyte esterase Test strip Ql (U) 25 /ul Negative [facility] Urine pHOrdered By: Mayito Martinez on 09-02-2023 pH (U) 5.0 [pH] 5.0 - 8.0 [facility] Urine sediment bacteria coun t by microscopy (number/high power field)Ordered By: Mayito Martinez on 09-02-2023 Bacteria LM.HPF (Urine sed) [#/Area] 1 /[HPF] None Seen [facility] Urine specific gravity measu rementOrdered By: Mayito Martinez on 09-02-2023 Specific gravity (U) [Rel density] 1.020 1.002-1.030 [facility] Urobilinogen Auto test strip Ql (U)Ordered By: Mayito Martinez on 09-02-2023 Urobilinogen Ql (U) 8 mg/dl Normal [facility] CNPNon 05-08-2023 [facility] KARIS BRIGHT ([id number]) 1 F Date Time Provider Department 05/08/23 TYLER LOVELACE During your visit today, we recorded the following information about you: Eve Jeffery 05/08/2023 11:11 AM Signed Pt would like to get her shot record printed. She will pick it up in the main lobby when it is ready. Lakeshia Yost LPN 05/08/2023 11:19 AM Signed I spoke with pt and she will pick it up on the 3rd floor today. Lakeshia Yost LPN 05/08/2023 5:27 PM Signed Vaccine record was placed in medical records. Allergies As of Date: 05/08/2023 (No Known Allergies) Date Reviewed: 09/23/2019 Reviewed by: Cindy Alvarado (Ayesha) - Fully Assessed Reason for Visit: shot record [Other] Prescriptions as of 05/08/2023 - minocycline (MINOCIN, DYNACIN) 100 mg capsule Take 1 capsule by mouth once daily. (for acne) - escitalopram oxalate (LEXAPRO) 20 mg tablet Take 1 tablet by mouth once daily. - aluminum chloride (DRYSOL) 20 % external solution Apply 1 application to affected area daily at bedtime. Meds Comments as of 09/23/2019: 09/23/19: no daily medications per mother. Cindy Alvarado RN Problem List As Of Date 05/08/2023 Noted Resolved Acne [L70.9] 04/21/2014 Hematuria [R31.9] 05/08/2015 04/19/2017 Dysuria [R30.0] 05/08/2015 04/19/2017 Hyperhidrosis [R61] 05/08/2015 Ganglion cyst of wrist [M67.439] 05/08/2015 Abnormal uterine bleeding [N93.9] 12/23/2015 04/19/2017 Dysmenorrhea [N94.6] 12/23/2015 04/19/2017 Abdominal pain, epigastric [R10.13] 03/15/2016 Non-intractable vomiting without nausea [R11.11]03/16/2016 04/19/2017 Abnormal weight loss [R63.4] 03/16/2016 04/19/2017 Acute deep vein thrombosis (DVT) of left lower *05/25/2016 PMS (premenstrual syndrome) [N94.3] 05/25/2016 Depression [F32.A] 05/25/2016 Generalized anxiety disorder [F41.1] 08/23/2017 Encounter Status:Closed by LAKESHIA YOST LPN on 05/08/23 Normal [facility] Cervical or vagninal specime n microscopic examination by cytology stain (reported asOrdered By: Lucille Adorno on 03-22-2023 Cytology report Cyto stain Doc (Cvx/Vag) Comment . [facility] Comment on above: The Pap smear is a s creening test designed to aid in thedetection of premalignant and malignant conditions of theuterine cervix. It is not a diagnostic procedure andshould not be used as the sole means of detecting cervicalcancer. Both false-positive and false-negative reports dooccur. Chlamydia trachomatis rRNA d etection by probe and target amplification methodOrdered By: Lucille Adorno on 03-22-2023 C. trachomatis rRNA OWEN+probe Ql (Unsp spec) Negative Negative [facility] Laboratory - CytologyOrdered By: Lucille Adorno on 03-22-2023 Miller Supervisor Cyto stain Nom (Cvx/Vag) [ID] Comment . [facility] Comment on above: Claudia Chaudhary Cytotec hnologist (ASCP) Laboratory - Microbiology an d Antimicrobial susceptibilityOrdered By: Lucille Adorno on 03-22-2023 N. gonorrhoeae DNA OWEN+probe Ql (Unsp spec) Negative Negative [facility] Comment on above: Performed at: =[address] [id number] Director: Mounika Hicks MD, Phone: [phone] Laboratory - Miscellaneous t estsOrdered By: Lucille Adorno on 03-22-2023 Service comment (Unsp spec) [Interp] Comment . [facility] Comment on above: This liquid based Th inPrep(R) pap test was screened withthe use of an image guided system. Service comment (Unsp spec) [Interp] . . [facility] No Panel InformationOrdered By: Lucille Adorno on 03-22-2023 Human Papillomavirus Screen Comment . [facility] Comment on above: The HPV DNA reflex c margaux were not met with this specimenresult therefore, no HPV testing was performed.Performed at: [address], [place] [id number] Director: Mounika Hicks MD, Phone: [phone] Pathology report final diagnosis Narrative Comment . [facility] Comment on above: NEGATIVE FOR INTRAEP ITHELIAL LESION OR MALIGNANCY. Laboratory - Chemistry and C hemistry - challengeon 10-11-2022 HCG ( test) Ql (U) Negative [facility] Absolute lymphocyte countOrd ered By: Dr. Khan on 09-30-2022 Lymphocytes Auto (Unsp spec) [#/Vol] 1.39 10*3/uL 0.83-4.51 [facility] Basophil percentageOrdered B y: Dr. Khan on 09-30-2022 Basophils/100 WBC (Bld) 1.2 % 0-1 [facility] Chloride [Moles/Vol] 105 mmol/L 98-107 [facility] Eosinophils/100 WBC (Bld) 2.6 % 0-5 [facility] Glucose [Mass/Vol] 77 mg/dL 74-106 [facility] Neutrophils (Bld) [#/Vol] 2.4 10*3/uL 2.0-7.7 [facility] Neutrophils/100 WBC (Bld) 55.9 % 47-70 [facility] Potassium [Moles/Vol] 4.0 mmol/L 3.5-5.1 [facility] Sodium [Moles/Vol] 138 mmol/L 136-145 [facility] WBC (Bld) [#/Vol] 4.3 10*3/uL 4.4-11.0 [facility] Blood erythrocytes count (nu mber/volume)Ordered By: Dr. Khan on 09-30-2022 RBC (Bld) [#/Vol] 4.54 10*6/uL 4.2-5.4 [facility] Blood hemoglobin measurement (mass/volume)Ordered By: Dr. Khan on 09-30-2022 Hemoglobin (Bld) [Mass/Vol] 13.4 g/dL 12.0-15.0 [facility] Blood lymphocytes/100 leukoc ytesOrdered By: Dr. Khan on 09-30-2022 Lymphocytes/100 WBC (Bld) 32.6 % 19-41 [facility] Blood monocytes/100 leukocyt esOrdered By: Dr. Khan on 09-30-2022 Monocytes/100 WBC (Bld) 7.5 % 0-10 [facility] Blood platelet mean volumeOr dered By: Dr. Khan on 09-30-2022 Platelet mean volume (Bld) [Entitic vol] 11.2 fL 6.2-12.0 [facility] Determination of erythrocyte mean corpuscular volume (MCV)Ordered By: Dr. Khan on 09-30-2022 MCV (RBC) [Entitic vol] 93.4 fL 81-99 [facility] Hematocrit Auto (Bld) [Volum e fraction]Ordered By: Dr. Khan on 09-30-2022 Hematocrit (Bld) [Volume fraction] 42.4 % 37-47 [facility] Laboratory - Chemistry and C hemistry - challengeOrdered By: Dr. Khan on 09-30-2022 CO2 [Moles/Vol] 26.0 mmol/L 21.0-32.0 [facility] Urea nitrogen/Creatinine [Mass ratio] 11.9 mg/mg 10-20 [facility] Laboratory - Hematology and Cell countsOrdered By: Dr. Khan on 09-30-2022 Erythrocyte distribution width (RBC) [Entitic vol] 43.8 fL 35.1-43.9 [facility] Erythrocyte distribution width (RBC) [Ratio] 12.8 % 11.6-14.6 [facility] Immature granulocytes/100 WBC (Bld) 0.200 % 0.0-0.9 [facility] Comment on above: IG% - Immature Granu locytes (promyelocytes, myelocytes and metamyelocytes) > 1% indicates that a LEFT SHIFT is Present. MCH (RBC) [Entitic mass] 29.5 pg 27.0-32.0 [facility] Nucleated RBC/100 WBC (Bld) [Ratio] 0 % 0-5 [facility] MCHC Auto (RBC) [Mass/Vol]Or dered By: Dr. Khan on 09-30-2022 MCHC (RBC) [Mass/Vol] 31.6 g/dL 32-36 [facility] No Panel InformationOrdered By: Dr. Khan on 09-30-2022 Estimated GFR (MDRD) Amer 141 mL/min >60 [facility] Comment on above: GFR Calc Estimated GFR (MDRD) Non-Af Amer 116 mL/min >60 [facility] Comment on above: Non- GFR Calc Thyroid Stimulating Hormone (TSH) 0.72 uIU/mL 0.358-3.74 [facility] Platelets bldOrdered By: Dr. Khan on 09-30-2022 Platelets (Bld) [#/Vol] 193 10*3/uL 150-450 [facility] Serum or plasma calcium juliette urement (mass/volume)Ordered By: Dr. Khan on 09-30-2022 Calcium [Mass/Vol] 9.3 mg/dL 8.5-10.1 [facility] Serum or plasma creatinine m easurement (mass/volume)Ordered By: Dr. Khan on 09-30-2022 Creatinine [Mass/Vol] 0.67 mg/dL 0.55-1.02 [facility] Comment on above: The validity of the calculated GFR & GFRAA in patients over 70 years has not been determined. Clinical correlation is essential. Serum or plasma urea nitroge n measurement (mass/volume)Ordered By: Dr. Khan on 09-30-2022 Urea nitrogen [Mass/Vol] 8 mg/dL 7-18 [facility] Thin prep Papanicolaou smear with manual screeningOrdered By: Dr. Khan on 09-30-2022 Thin prep Papanicolaou smear with manual screening 7 5-15 [facility] Basophil percentageon 2021 WBC (Bld) [#/Vol] 4.9 10*3/uL 4.4-11.0 [facility] Work Phone: Blood erythrocytes count (nu mber/volume)on 07-12-2022 RBC (Bld) [#/Vol] 4.53 10*6/uL 4.2-5.4 [facility] Work Phone: Blood hemoglobin measurement (mass/volume)on 07-12-2022 Hemoglobin (Bld) [Mass/Vol] 13.6 g/dL 12.0-15.0 [facility] Work Phone: Blood platelet mean volumeon 07-12-2022 Platelet mean volume (Bld) [Entitic vol] 10.2 fL 6.2-12.0 [facility] Work Phone: Determination of erythrocyte mean corpuscular volume (MCV)on 07-12-2022 MCV (RBC) [Entitic vol] 91.8 fL 81-99 [facility] Work Phone: Hematocrit Auto (Bld) [Volum e fraction]on 07-12-2022 Hematocrit (Bld) [Volume fraction] 41.6 % 37-47 [facility] [facility] Work Phone: Laboratory - Chemistry and C hemistry - challengeon 07-12-2022 HCG ( test) Ql (U) Negative [facility] Work Phone: Comment on above: Very dilute urine sp ecimens, as indicated by a low specificgravity, may not contain software sales representative levels of hCG. If is still suspected, a first morning urinespecimen should be collected 48 hours later and tested. Laboratory - Hematology and Cell countson 07-12-2022 Erythrocyte distribution width (RBC) [Entitic vol] 41.2 fL 35.1-43.9 [facility] Work Phone: Erythrocyte distribution width (RBC) [Ratio] 12.2 % 11.6-14.6 [facility] Work Phone: MCH (RBC) [Entitic mass] 30.0 pg 27.0-32.0 [facility] Work Phone: MCHC Auto (RBC) [Mass/Vol]on 07-12-2022 MCHC (RBC) [Mass/Vol] 32.7 g/dL 32-36 [facility] Work Phone: Platelets bldon 07-12-2022 Platelets (Bld) [#/Vol] 210 10*3/uL 150-450 [facility] Work Phone: Laboratory - Microbiology an d Antimicrobial susceptibilityon 05-21-2022 SARS-CoV-2 (COVID-19) RNA OWEN+probe Ql (Unsp spec) Not detected [facility] Work Phone: No Panel Informationon 05-21 POC Nasal Swab Influenza A,B Not detected [facility] Work Phone: POC Nasal Swab RSV Not detected [facility] Work Phone: Laboratory - Microbiology an d Antimicrobial susceptibilityon 05-20-2022 SARS-CoV-2 (COVID-19) RNA OWEN+probe Ql (Unsp spec) Not detected [facility] Work Phone: Laboratory - Microbiology an d Antimicrobial susceptibilityon 04-07-2022 SARS-CoV-2 (COVID-19) RNA OWEN+probe Ql (Unsp spec) Not detected [facility] Work Phone: No Panel Informationon 04-07 POC Nasal Swab Influenza A,B Not detected [facility] Work Phone: POC Nasal Swab RSV Not detected [facility] Work Phone: Laboratory - Microbiology an d Antimicrobial susceptibilityon 04-04-2022 SARS-CoV-2 (COVID-19) RNA OWEN+probe Ql (Unsp spec) Not detected [facility] Work Phone: No Panel Informationon 04-04 POC Nasal Swab Influenza A,B Not detected [facility] Work Phone: POC Nasal Swab RSV Not detected [facility] Work Phone: Absolute lymphocyte counton 01-12-2022 Lymphocytes Auto (Unsp spec) [#/Vol] 1.14 10*3/uL 0.83-4.51 [facility] Work Phone: Basophil percentageon 2021 Basophils/100 WBC (Bld) 0.6 % 0-1 [facility] Work Phone: Bilirubin [Mass/Vol] 0.70 mg/dL 0.20-1.00 [facility] Work Phone: [phone] Comment on above: For patients on eltr ombopag therapy, use of Dimension Wilson TBIL is not recommended. Chloride [Moles/Vol] 104 mmol/L 98-107 [facility] Work Phone: Eosinophils/100 WBC (Bld) 0.9 % 0-5 [facility] Work Phone: [phone] Glucose [Mass/Vol] 109 mg/dL 74-106 [facility] Work Phone: [phone] Comment on above: Fasting Glucose resu lt from 100 to 125 mg/dL suggests IMPAIRED HOMEOSTASIS per A.D.A. criteria. Neutrophils (Bld) [#/Vol] 7.8 10*3/uL 2.0-7.7 [facility] Work Phone: [phone] Neutrophils/100 WBC (Bld) 80.2 % 47-70 [facility] Work Phone: Potassium [Moles/Vol] 3.9 mmol/L 3.5-5.1 [facility] Work Phone: Protein [Mass/Vol] 7.4 g/dL 6.4-8.2 [facility] Work Phone: Sodium [Moles/Vol] 137 mmol/L 136-145 [facility] Work Phone: [phone] WBC (Bld) [#/Vol] 9.8 10*3/uL 4.4-11.0 [facility] Work Phone: [phone] Blood erythrocytes count (nu mber/volume)on 01-12-2022 RBC (Bld) [#/Vol] 4.72 10*6/uL 4.2-5.4 [facility] Work Phone: Blood hemoglobin measurement (mass/volume)on 01-12-2022 Hemoglobin (Bld) [Mass/Vol] 14.2 g/dL 12.0-15.0 [facility] Work Phone: Blood lymphocytes/100 leukoc yteson 01-12-2022 Lymphocytes/100 WBC (Bld) 11.7 % 19-41 [facility] Work Phone: Blood monocytes/100 leukocyt eson 01-12-2022 Monocytes/100 WBC (Bld) 6.2 % 0-10 [facility] Work Phone: Blood platelet mean volumeon 01-12-2022 Platelet mean volume (Bld) [Entitic vol] 11.4 fL 6.2-12.0 [facility] Work Phone: Determination of erythrocyte mean corpuscular volume (MCV)on 01-12-2022 MCV (RBC) [Entitic vol] 88.6 fL 81-99 [facility] Work Phone: Hematocrit Auto (Bld) [Volum e fraction]on 01-12-2022 Hematocrit (Bld) [Volume fraction] 41.8 % 37-47 [facility] Work Phone: [phone] Laboratory - Chemistry and C hemistry - challengeon 01-12-2022 ALP [Catalytic activity/Vol] 59 U/L 45-117 [facility] Work Phone: ALT [Catalytic activity/Vol] 19 U/L 13-56 [facility] Work Phone: CO2 [Moles/Vol] 30.0 mmol/L 21.0-32.0 [facility] Work Phone: [phone] Globulin (S) [Mass/Vol] 3.3 g/dL 2.2-4.2 [facility] Work Phone: Urea nitrogen/Creatinine [Mass ratio] 11.7 mg/mg 10-20 [facility] Work Phone: Laboratory - Hematology and Cell countson 01-12-2022 Erythrocyte distribution width (RBC) [Entitic vol] 40.7 fL 35.1-43.9 [facility] Work Phone: Erythrocyte distribution width (RBC) [Ratio] 12.4 % 11.6-14.6 [facility] Work Phone: Immature granulocytes/100 WBC (Bld) 0.400 % 0.0-0.9 [facility] Work Phone: Comment on above: IG% - Immature Granu locytes (promyelocytes, myelocytes and metamyelocytes) > 1% indicates that a LEFT SHIFT is Present. MCH (RBC) [Entitic mass] 30.1 pg 27.0-32.0 [facility] Work Phone: Nucleated RBC/100 WBC (Bld) [Ratio] 0 % 0-5 [facility] Work Phone: MCHC Auto (RBC) [Mass/Vol]on 01-12-2022 MCHC (RBC) [Mass/Vol] 34.0 g/dL 32-36 [facility] Work Phone: No Panel Informationon 01-12 Estimated GFR (MDRD) Amer 140 mL/min >60 [facility] Work Phone: Comment on above: GFR Calc Estimated GFR (MDRD) Non-Af Amer 116 mL/min >60 [facility] Work Phone: Comment on above: Non- GFR Calc Platelets bldon 01-12-2022 Platelets (Bld) [#/Vol] 189 10*3/uL 150-450 [facility] Work Phone: Serum or plasma albumin juliette urement (mass/volume)on 01-12-2022 Albumin [Mass/Vol] 4.1 g/dL 3.2-5.0 [facility] Work Phone: Serum or plasma albumin/glob ulin mass ratioon 01-12-2022 Albumin/Globulin [Mass ratio] 1.2 {ratio} 0.9-2.4 [facility] Work Phone: Serum or plasma calcium juliette urement (mass/volume)on 01-12-2022 Calcium [Mass/Vol] 9.6 mg/dL 8.5-10.1 [facility] Work Phone: Serum or plasma creatinine m easurement (mass/volume)on 01-12-2022 Creatinine [Mass/Vol] 0.68 mg/dL 0.55-1.02 [facility] Work Phone: Comment on above: The validity of the calculated GFR & GFRAA in patients over 70 years has not been determined. Clinical correlation is essential. Serum or plasma urea nitroge n measurement (mass/volume)on 01-12-2022 Urea nitrogen [Mass/Vol] 8 mg/dL 7-18 [facility] Work Phone: Thin prep Papanicolaou smear with manual screeningon 01-12-2022 Thin prep Papanicolaou smear with manual screening 21 U/L 15-37 [facility] Work Phone: Thin prep Papanicolaou smear with manual screening 3 5-15 [facility] Work Phone: Vital Signs Date Time Vital Sign Value Performing Clinician Faci lity 05-24-2025 13:30-0400 Body temperature 97.7 [degF] Dr. Edson Khan MD Work Phone: [facility] 05-24-2025 13:30-0400 Diastolic blood pressure 66 mm[Hg] Dr. Edson Khan MD Work Phone: [facility] 05-24-2025 13:30-0400 Heart rate 76 /min Dr. Edson Khan MD Work Phone: [facility] 05-24-2025 13:30-0400 Respiratory rate 14 /min Dr. Edson Khan MD Work Phone: [facility] 05-24-2025 13:30-0400 SaO2% (BldA) [Mass fraction] 99 % Dr. Edson Khan MD Work Phone: [facility] 05-24-2025 13:30-0400 Systolic blood pressure 100 mm[Hg] Dr. Edson Khan MD Work Phone: [facility] 09-02-2023 09:27-0500 Body height 167.[address] [facility] 09-02-2023 09:27-0500 Body mass index (BMI) [Ratio] 25.4 kg/m2 [facility] 09-02-2023 09:27-0500 Body temperature 97.7 [degF] [facility] 09-02-2023 09:27-0500 Body weight 71.[address] [facility] 09-02-2023 09:27-0500 Diastolic blood pressure 87 mm[Hg] [facility] 09-02-2023 09:27-0500 Heart rate 118 /min [facility] 09-02-2023 09:27-0500 Respiratory rate 16 /min [facility] 09-02-2023 09:27-0500 SaO2% (BldA) [Mass fraction] 100 % [facility] 09-02-2023 09:27-0500 Systolic blood pressure 131 mm[Hg] [facility] 03-22-2023 09:50-0400 Body height 172.[address] Edson Khan Work Phone: [facility] 03-22-2023 09:40-0400 Body mass index (BMI) [Ratio] 22.2 kg/m2 Dr. Edson Khan Work Phone: [facility] 03-22-2023 09:40-0400 Body weight 66.[address] Edson Khan Work Phone: [facility] 03-22-2023 09:40-0400 Diastolic blood pressure 70 mm[Hg] Dr. Edson Khan Work Phone: [facility] 03-22-2023 09:40-0400 Systolic blood pressure 102 mm[Hg] Dr. Edson Khan Work Phone: [facility] 03-17-2023 16:27-0400 Body mass index (BMI) [Ratio] 22 kg/m2 [facility] 03-17-2023 16:27-0400 Body weight 65.[address] [facility] 03-17-2023 16:26-0400 Body height 172.[address] [facility] 03-17-2023 16:26-0400 Body temperature 98.5 [degF] [facility] 03-17-2023 16:26-0400 Diastolic blood pressure 78 mm[Hg] [facility] 03-17-2023 16:26-0400 Heart rate 107 /min [facility] 03-17-2023 16:26-0400 Respiratory rate 16 /min [facility] 03-17-2023 16:26-0400 SaO2% (BldA) [Mass fraction] 100 % [facility] 03-17-2023 16:26-0400 Systolic blood pressure 115 mm[Hg] [facility] 10-11-2022 15:25-0500 Body height 170.[address] Edson Khan Work Phone: [facility] 10-11-2022 15:25-0500 Body mass index (BMI) [Ratio] 22.7 kg/m2 Dr. Edson Khan Work Phone: [facility] 10-11-2022 15:25-0500 Body weight 65.[address] Edson Khan Work Phone: [facility] 10-11-2022 15:25-0500 Diastolic blood pressure 71 mm[Hg] Dr. Edson Khan Work Phone: [facility] 10-11-2022 15:25-0500 Systolic blood pressure 115 mm[Hg] Dr. Edson Khan Work Phone: [facility] 07-12-2022 16:18-0400 Body temperature 98.5 [degF] SAMMY CHRISTIANSON Work Phone: [facility] Work Phone: 07-12-2022 16:18-0400 Diastolic blood pressure 52 mm[Hg] SAMMY CHRISTIANSON Work Phone: [facility] Work Phone: 07-12-2022 16:18-0400 Heart rate 63 /min SAMMY Ledezma PA Work Phone: [facility] Work Phone: 07-12-2022 16:18-0400 Respiratory rate 16 /min SAMMY CHRISTIANSON Work Phone: [facility] Work Phone: 07-12-2022 16:18-0400 SaO2% (BldA) [Mass fraction] 100 % PA Fabián Ledezma PA Work Phone: [facility] Work Phone: 07-12-2022 16:18-0400 Systolic blood pressure 93 mm[Hg] PA Fabián Ledezma PA Work Phone: [facility] Work Phone: 07-12-2022 13:05-0400 Body height 170.18 cm PA Fabián Ledezma PA Work Phone: [facility] Work Phone: 07-12-2022 13:05-0400 Body mass index (BMI) [Ratio] 20.7 kg/m2 PA Fabián Ledezma PA Work Phone: [facility] Work Phone: 07-12-2022 13:05-0400 Body weight 60 kg PA Fabián Ledezma PA Work Phone: [facility] Work Phone: 06-09-2022 13:06-0400 Body mass index (BMI) [Ratio] 20.3 kg/m2 PA Fabián Ledezma PA Work Phone: [facility] Work Phone: 06-09-2022 13:06-0400 Body weight 57.15 kg PA Fabián Ledezma PA Work Phone: [facility] Work Phone: 06-09-2022 13:06-0400 Diastolic blood pressure 72 mm[Hg] PA Fabián Ledezma PA Work Phone: [facility] Work Phone: 06-09-2022 13:06-0400 Systolic blood pressure 110 mm[Hg] PA Fabián Ledezma PA Work Phone: [facility] Work Phone: 03-26-2022 16:23-0400 Body height 167.[address] [facility] Work Phone: 03-26-2022 16:23-0400 Body mass index (BMI) [Ratio] 18.9 kg/m2 [facility] Work Phone: 03-26-2022 16:23-0400 Body temperature 97.6 [degF] [facility] Work Phone: 03-26-2022 16:23-0400 Body weight 53.[address] [facility] Work Phone: 03-26-2022 16:23-0400 Diastolic blood pressure 86 mm[Hg] [facility] Work Phone: 03-26-2022 16:23-0400 Heart rate 86 /min [facility] Work Phone: 03-26-2022 16:23-0400 Respiratory rate 15 /min [facility] Work Phone: 03-26-2022 16:23-0400 SaO2% (BldA) [Mass fraction] 98 % [facility] Work Phone: 03-26-2022 16:23-0400 Systolic blood pressure 126 mm[Hg] [facility] Work Phone: Encounters Encounter Date Encounter Type Care Provider Facility Start: 05-24-2025 End: 05-24-[address] Edson Khan MD Work Phone: [facility] Start: 05-24-2025 End: 05-24-2025 Patient encounter procedure Mary Anne Schneider [employer] Work Phone: Start: 05-24-2025 End: 05-24-2025 ambulatory Edson Khan Facility:[facility] Start: 04-15-2025 Non-patient / Non-visit Dr. Hilary pearl MD -[facility] Work Phone: Start: 10-30-2024 End: 10-30-2024 ambulatory Edson Khan Facility:[facility] Start: 09-26-2024 End: 09-26-2024 ambulatory Edson Khan Facility:[facility] Start: 09-26-2024 End: 09-26-2024 ambulatory Edson Khan Facility:[facility] Start: 09-21-2024 End: 09-21-2024 ambulatory Mary Anne Schneider Facility:[facility] Start: 09-20-2024 End: 09-20-2024 ambulatory Fabián Ledezma SAMMY Facility:[facility] Start: 10-24-2023 End: 10-24-2023 ambulatory [facility] Work Phone: Start: 10-24-2023 End: 10-24-2023 Patient encounter procedure [facility]-Ultrasound, H Work Phone: Start: 09-02-2023 End: 09-02-2023 Emergency department patient visit [facility]Emergency Department Work Phone: Start: 03-30-2023 End: 03-30-[address] Edson Khan Work Phone: [facility] Work Phone: Start: 03-22-2023 End: 03-22-[address] Edson Khan Work Phone: [facility] Work Phone: Start: 03-22-2023 End: 03-22-[address] Edson Khan Work Phone: [facility]-Laboratory, Specimen Start: 03-22-2023 End: 03-22-[address] Edson Khan Work Phone: [facility] Start: 03-17-2023 End: 03-17-2023 Emergency department patient visit [facility]Emergency Department Start: 01-03-2023 End: 01-03-[address] Edson Khan Work Phone: [facility] Work Phone: Start: 01-03-2023 End: 01-03-[address] Edson Khan Work Phone: [facility]-Physical Therapy Work Phone: Start: 01-03-2023 Registered Recurring [facility] Start: 12-03-2022 End: 12-03-[address] Edson Khan Work Phone: [facility] Work Phone: Start: 12-03-2022 End: 12-03-[address] Edson Khan Work Phone: [facility] Start: 10-11-2022 End: 10-11-[address] Edson Khan Work Phone: [facility] Start: 09-30-2022 End: 09-30-[address] Edson Khan Work Phone: [facility] Start: 07-12-2022 End: 07-12-2022 Admission to same day surgery center SAMMY CHRISTIANSON Work Phone: [facility] Day [facility] Start: 07-12-2022 End: 07-12-2022 ambulatory SAMMY CHRISTIANSON Work Phone: [facility] Work Phone: Start: 07-12-2022 Non-patient / Non-visit SAMMY CHRISTIANSON Work Phone: [facility] Start: 06-09-2022 End: 06-09-2022 Patient encounter procedure SAMMY CHRISTIANSON Work Phone: [facility] Start: 05-21-2022 End: 05-21-2022 Patient encounter procedure SAMMY CHRISTIANSON Work Phone: [facility] Start: 05-20-2022 End: 05-20-2022 Patient encounter procedure SAMMY CHRISTIANSON Work Phone: [facility] Start: 04-07-2022 End: 04-07-2022 Patient encounter procedure SAMMY CHRISTIANSON Work Phone: [facility] Start: 04-04-2022 End: 04-04-2022 Patient encounter procedure SAMMY CHRISTIANSON Work Phone: [facility] Start: 03-26-2022 End: 03-26-2022 [facility] Start: 01-12-2022 End: 01-12-2022 [facility] Procedure Procedure Detail Performing Clinician Start: 05-26-[address] Edson Khan MD Work Phone: Start: 10-24-2023 US urinary tract Start: 09-02-2023 Urine culture Start: 03-17-2023 Plain X-ray of tibia and fibula Start: 12-03-2022 MRI of joint of lower extremity Dr. Edson Khan Work Phone: Start: 07-12-2022 Hysteroscopy SAMMY CHRISTIANSON Work Phone: History of reconstru ction of anterior cruciate ligament tear History of repair of anterior cruciate ligament of left knee Plan of Treatment Date Care Activity Detail Author Start: 09-02-2023 [facility] Start: 03-22-2023 Liquid based cervica l cytology screening [facility] Start: 07-12-2022 Ambulation without limitation [facility] Work Phone: Start: 07-12-2022 Medical regimen orde rs management [facility] Work Phone: Start: 07-12-2022 Medication education [facility] Work Phone: Start: 07-12-2022 End: 07-12-2022 Patient discharge [facility] Work Phone: Start: 07-12-2022 Procedure discontinued [facility] Work Phone: Start: 07-12-2022 Taking patient vital signs [facility] Work Phone: Start: 07-12-2022 Vital signs measurements [facility] Work Phone: Start: 07-12-2022 [facility] Work Phone: Start: 07-12-2022 Admission procedure [facility] Work Phone: HIV 1+2 Ab+HIV1 p24 Ag [Presence] in Serum or Plasma by Immunoassay [facility] Patient Education [facility] Work Phone: Patient referral [facility] Work Phone: [facility] Immunizations Immunization Date Immunization Notes Care Provider Fa cility 07-22-2024 influenza, seasonal, injectable, preservative free Dr. Edson Khan MD Work Phone: [facility] 08-11-2023 influenza, injectabl e, quadrivalent, preservative free [facility] 09-09-2022 influenza, injectabl e, quadrivalent, preservative free [facility] 09-09-2022 influenza, seasonal, injectable Dr. Edson Khan Work Phone: [facility] 10-04-2021 Covid (Pfizer) [facility] 09-13-2021 Covid (Pfizer) [facility] 07-21-2021 influenza, injectabl e, quadrivalent, preservative free [facility] 07-21-2021 influenza, seasonal, injectable [facility] 07-22-2020 influenza, injectabl e, quadrivalent, preservative free [facility] 07-22-2020 influenza, seasonal, injectable [facility] 09-25-2019 influenza, injectabl e, quadrivalent, preservative free [facility] 09-25-2019 influenza, seasonal, injectable [facility] 09-04-2018 influenza, injectabl e, quadrivalent, preservative free [facility] 09-04-2018 influenza, seasonal, injectable [facility] Payers Date Payer Category Payer Self-pay [id number] 2024 Unknown [id number] 2016 Unknown [id number] Unknown [id number] [id number] Unknown [id number] [id number] Unknown [id number] [id number] Unknown [id number] [id number] Unknown [id number] 2.16.8 [id number] Unknown [id number] 2.16.8 [id number] Unknown [id number] 2.16.8 [id number] Social History Date Type Detail Facility Start: 06-16-2021 End: 09-02-2023 Tobacco smoking status NHIS Unknown if ever smoked [facility] Start: 12-20-2019 With Family [facility] Start: 12-20-2019 Vapor [facility] Start: 2000 Sex Assigned At Female [facility] Start: 09-21-2024 Tobacco smoking status NHIS Current some day smoker [facility] NEGATED: Highlighted row [facility] Goals Date Patient Goal Desired Activity /State Mental Status Date Assessment Result Facility 07-12-2022 Cognitive function Level Of Consciousness Sedated [facility] Work Phone: 07-12-2022 Cognitive function Voice/Name [facility] Work Phone: Clinical Notes 03-17-2023 to 05-24-2025 Note Date & Type Note Facility 05-24-2025 Evaluation note Diagnosis Onset Date Resolution Dysuria acute May 24 1:27pm [facility] Work Phone: [phone] 396-671607-05-2023 Discharge summary Author Patrice Shell [facility] April 19, 2023 9:13am Note Date/Time April 19, 2023 9:14a m [facility] Physical Therapy [facility] [address] [place] [address] / REHABILITATION SERVICES DISCHARGE SUMMARY MR#: [id number] Acct: [id number] Name: KARIS BRIGHT Rep #: [id number] : 2000 22 From: Patrice Shell PT, ATC Referring Dr.: Dr. Janes Manrique DO Status: REG RCR Insurance: [employer] [employer] Patient Information Patient Information: KARIS BRIGHT was seen in my office for initial evaluation on 12/14/22. The following Plan of Care was established for this patient: POC Established Initial Frequency: 2-3x /Week Initial Duration: 4-6 Weeks Anticipated Interventions Patient/Client Instruction: Educate patient on: Condition and Plan of Care For the Purpose of:: To improve self management Therapeutic Exercise to Include: Strength training, Endurance training, Balance training, Flexibilty training and Dynamic Lumbar Stabilization For the Purpose of:: To decrease pain, To increase ROM and To improve muscle performance and motor function Cryotherapy (ice pack, ice massage): Yes For the Purpose of:: To decrease pain Last Seen Last Seen: This patient was last seen in our office . Pertinent comments regarding their Physical therapy will appear below: Pt was treated for 4 PT visits for L knee pain through the date of 01/03/23. Pt has not returned through todays date and is discontinued at this time. At this point I will be discontinuing this patient from physical therapy. I would be happy to see this patient again in the future if found appropriate by the physician. Thank you! Patrice Shell, PT, ATC Balance/Gait/Functional tests Balance/Special Test Scores Lower Extremity Functional Score: 23 <Electronically signed by Patrice Shell PT, ATC> 04/19/23 0913 CC: Dr. Janes Manrique, ; Dr. Edson Khan MD ~ [facility] Signed [facility] Work Phone: 1(148) 599-137006-07-2023 NotePap Smear Specimen AdequacyJune 2022 5:43pmComment.Satisfactory for evaluation. Endocervical and/or squamous metaplasticcells (endocervical component)are present.[facility] INTER[facility]ACED A#[id number] Hospitals Beachwood Medical CenterComment on above:Satisfactory for evaluation. Endocervical and/or squamous metaplasticcells (endocervical component)are present.03-22-2023 NotePap Smear Specimen AdequacyJune 2022 5:43pmComment.Satisfactory for evaluation. Endocervical and/or squamous metaplasticcells (endocervical component)are present.[facility] INTER[facility]ED A#[id number] Hospitals Beachwood Medical CenterComment on above:Satisfactory for evaluation. Endocervical and/or squamous metaplasticcells (endocervical component)are present.03-17-[address] Moreno [facility] March 17, 2023 5:07pm Note Date/Time March 17, 2023 4:46p m [facility] Medical Records Department [address] [place] [address] Emergency Department Summary 03/17/23 MR#: [id number] Acct: [id number] Name: KARIS BRIGHT Rep #:[id number] : 2000 22 From: Masood Jimenez PCP: Dr. Edson Khan MD Status:REG E R Location: ED HPI History of Present Illness Chief Complaint: Lower Extremity Injury [facility] Medical History (Updated 03/17/23 @ 17:[address] Masood Moreno, DO) Depression with anxiety Easy bruising Excessive bleeding Gastric reflux History of blood clots History of DVT (deep vein thrombosis) Marijuana use PONV (postoperative nausea and vomiting) Restless legs Smoker SOB (shortness of breath) sudden weight loss Home Medications buspirone 10 mg tablet 10 mg PO BID 05/25/20 [History Last Taken Unknown] spironolactone 50 mg tablet 50 mg PO DAILY ACNE 04/28/21 [History Last Taken Unknown] trazodone 50 mg tablet 50 mg PO DAILY PRN PRN ANXIETY-RELATED N/V 07/04/22 [History Last Taken Unknown] medroxyprogesterone 150 mg/mL intramuscular syringe (Depo-Provera) 150 mg IM [id number] #1 mL 08/02/22 [Rx Last Taken Unknown] sertraline 50 mg tablet (Zoloft) 50 mg PO QHS #30 tabs 08/02/22 [Rx Last Taken Unknown] promethazine 12.5 mg tablet 12.5 mg PO Q6H PRN nausea and vomiting #60 tabs 01/30/23 [Rx Last Taken Unknown] promethazine 25 mg tablet 25 mg PO Q6H PRN nausea and vomiting #60 tabs 02/01/23[Rx Last Taken Unknown] Allergy/AdvReac Type Severity Reaction Status Date / Time No Known Allergies Allergy Verified 03/17/23 16:27 Family History Mother High cholesterol Father High cholesterol Surgical History History of esophagogastroduodenoscopy (EGD) History of repair of anterior cruciate ligament of left knee Hx of colonoscopy Social History Smoking Status: Current every day smoker tobacco type: cigarettes second hand exposure: No alcohol intake: never substance use type: does not use caffeine: Yes what type of physical activity do you participate in: none frequency: does not exercise seatbelt use: always EXAM Physical Exam Const Vital Signs: 03/17/23 16:26 Temperature 98.5 F Temperature Source Temporal Pulse Rate 107 H Respiratory Rate 16 Blood Pressure 115/78 Blood Pressure Mean 90 Pulse Ox 100 Oxygen Delivery Method Room Air [facility] [place] Narr[place] Medical decision making narrative: HISTORY OF PRESENT ILLNESS: 22-year-old female here with left leg pain. The patient states she had mechanical fall from standing. No head trauma or loss of consciousness noted. She states she has 10 out of 10 left leg pain. Denies history of fracture or dislocation to the involved extremity. REVIEW OF SYSTEMS: Pertinent positives: Leg pain Pertinent negatives: Numbness, tingling, blue discoloration PHYSICAL EXAM: Nursing triage notes reviewed, Vital signs reviewed Constitutional: please see mdm Extremities: No edema, TTP over distal left tibia. Compartments are soft. Neuro: Intact sensation L1-S1 dermatomal distributions. Intact 5/5 strength in hip flexion (T12-L3). Knee extension (L2-L4). Ankle dorsiflexion (L4-L5). Ankle plantar flexion (S1). Great toe extension (L5). 2+ patellar and AchillesDTRs. Skin: No rash or lesions noted, no evidence of open fracture MEDICAL DECISION MAKING: Chief Complaint: Left lower leg pain External records reviewed: No recent advanced imaging of the involved extremity Factors affecting care: Depression, anxiety, history of DVT Social determinants of health: Current every day smoker, marijuana abuse History obtained from others: The patient's family, fianc? Consults: None ALL IMAGES HAVE BEEN PERSONALLY REVIEWED AND INTERPRETED BY MYSELF. MDM Narrative: Patient was hemodynamically stable, afebrile, nontoxic-appearing. Exam with mild TTP over lower anterior tibia. No obvious deformity or open fracture. I considered the following differential diagnosis: Fracture, dislocation, bone contusion I obtained an x-ray of the involved extremity. X-ray was personally read by myself. No obvious fracture dislocation was noted. Radiologist agrees there isno obvious fracture dislocation noted. The patient is likely some from a bone contusion and as such can be discharged with close outpatient follow-up. She isinstructed to take Tylenol and ibuprofen every 6 hours as needed for pain control. She is instructed to return if symptoms change worsen or she develop discoloration, increasing pain, numbness, tingling or decreased temperature of the involved extremity. Total critical care time today provided was at least 0 minutes. This excludes separately billable procedures. There was a high probability of clinically significant/life threatening deterioration in the patient's condition which required my urgent intervention. Shared decision making: I will have a discussion with the patient and or visitors regarding risk/benefits of further testing or admission. They will be made aware of of the risk/benefits inherent in this decision they will be given the opportunity to voice understanding. Radiography Diagnostic Testing: Clinical Impression(s) from Imaging Studies Tibia/Fibula X-Ray 03/17/23 16:30 IMPRESSION: No acute bony injury. Electronically Signed: Herman Hinkle MD at 16:58 EDT , X-ray reviewed personally by myself shows no evidence of fracture dislocation Discharge Plan Triage Chief Complaint: Lower Extremity Injury ED Provider: Masood Moreno Dx/Rx/DC Orders Clinical Impression: Contusion of left leg Instructions: Bone Contusion Prescriptions: No Action buspirone 10 mg tablet 10 mg PO BID spironolactone 50 mg tablet 50 mg PO DAILY sertraline [Zoloft] 50 mg tablet 50 mg PO QHS Qty: 30 12RF medroxyprogesterone [Depo-Provera] 150 mg/mL syringe 150 mg IM [id number] Qty: 1 4RF trazodone 50 mg Tablet 50 mg PO DAILY PRN PRN (Reason: ANXIETY-RELATED N/V) promethazine 12.5 mg tablet 12.5 mg PO Q6H PRN (Reason: nausea and vomiting) Qty: 60 0RF promethazine 25 mg tablet 25 mg PO Q6H PRN (Reason: nausea and vomiting) Qty: 60 6RF Primary Care Provider: Edson Khan Referrals: Edson Khan MD [Primary Care Provider] - Activity Restrictions/Additional Instructions: Thank you for trusting us with your care today! Please take Tylenol (2 pills, 650 mg), ibuprofen (2 pills, 400 mg) every 6 hoursas needed for pain and fever control. Please return to the emergency department if your symptoms change or worsen. Specifically if you develop blue discoloration of the involved extremity, increasing pain, numbness, tingling or if your extremity becomes cool to touch. Please follow with your primary care physician for further outpatient evaluationand management. Disposition Disposition: Home, Self Care What to do if you have Problems For any increased pain, shortness of breath, bleeding, nausea or vomiting, chestpain, or any unexpected problems, contact your Primary Care Provider. Call [facility] ([phone]) or report to the closest Emergency Room. Call 911 if necessary. 03/17/23 1707 <Electronically signed by Masood Moreno DO> Cosigner Signature (if applicable): CC: Dr. Edson Khan MD ~ Signed [facility] Work Phone: Chief complaint+Reason for visit Narrative* Chief Complaint dental COVID TEST/[employer] COVID-19 COVID-19/[employer] COVID-19 Mirena removal HYSTEROSCOPY IUD REMOVAL HYSTEROSCOPY IUD REMOVAL Reason for Visit Anxiety Contraceptive management Retained intrauterine contraceptive device (IUD) [facility] Work Phone: Evaluation noteNo assessment information available [facility] Work Phone: Evaluation note* Diagnosis Onset Date Resolution Status Anxiety acute Contraceptive management acu te Retained intrauterine contraceptive device (IUD) acute [facility] Work Phone: Evaluation note* Diagnosis Onset Date Resolution Status Contraceptive management acu te [facility] Work Phone: Evaluation note* Diagnosis Onset Date Resolution Status Encounter for routine gynecological examination noneactive [facility] Work Phone: Hospital Discharge instructions Additional Instructions Thank you for trusting us with your care today! Please take Tylenol (2 pills, 650 mg), ibuprofen (2 pills, 400 mg) every 6 hours as needed for pain and fever control. Please return to the emergency department if your symptoms change or worsen. Specifically if you develop blue discoloration of the involved extremity, increasing pain, numbness, tingling or if your extremity becomes cool to touch. Please follow with your primary care physician for further outpatient evaluation and management.[facility] Work Phone: Reason for referral (narrative)No reason for referral information availableFranc[facility] Work Phone: Family History No Family History Records Found Relationship Condition Age at Onset Recorded Date/T brice mother High blood cholesterol Unknown father High blood cholesterol Unknown Advance Directives No Advanced Directives Records Found Advance Directive Response Recorded Date/ Time Advance Directives No April 28 9:34am Living Will No April 28, 2021 9:34am Power of Director Software Quality Assurance No April 28 1 9:34am Advance Directive Response Recorded Date/ Time Advance Directives No February 22 2 8:52am Living Will No March 26, 2022 5:07pm Power of Director Software Quality Assurance No March 26 2 5:07pm Advance Directive Response Recorded Date/ Time Advance Directives No February 22 2 7:52am Living Will No March 26, 2022 4:07pm Power of Director Software Quality Assurance No March 26 2 4:07pm Advance Directive Response Recorded Date/ Time Advance Directives No February 22 8:52am Living Will No March 17, 2023 5 :34pm Power of Director Software Quality Assurance No March 17, 2023 5:34pm Advance Directive Response Recorded Date/ Time Advance Directives No February 22 7:52am Living Will No September 02, 023 9:41am Power of Director Software Quality Assurance No September 02, 2023 9:41am Advance Directive Response Recorded Date/ Time Advance Directives No September 21, 2024 1:10pm Chief Complaint and Reason for Visit Chief Complaint dental Chief Complaint dental COVID TEST/[employer] Chief Complaint [place]ot Injection PAIN IN LEFT KNEE Reason for Visit Contraceptive manage ment Chief Complaint PAIN IN LEFT KNEE SPRAIN OF ACL L KNEE/ DR TO FAX left ankle Chief Complaint PAIN IN LEFT KNEE SPRAIN OF ACL L KNEE/ DR TO FAX left ankle 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) Reason for Visit Encounter for routin e gynecological examination Chief Complaint SPRAIN OF ACL L KNEE / DR TO FAX left ankle 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 Reason for Visit Encounter for routin e gynecological examination Chief Complaint UTI UTI Chief Complaint Admit Date CONCERN FOR UTI May 24, 2025 1:2 7pm Reason for Visit Admit Date Dysuria May 24, 2025 1:2 7pm Summary Purpose Additional Source Comments Goals (unrecognized section and content) Goals may be documented in a n alternate sectionGoals may be documented in an alternate sectionGoals may be documented in an alternate sectionGoals may be documented in an alternate sectionGoals may be documented in an alternate sectionGoals may be documented in an alternate sectionGoals may be documented in an alternate sectionGoals may be documented in an alternate sectionGoals may be documented in an alternate sectionGoals may be documented in an alternate section Care Teams (unrecognized sec tion and content) Team Status: Active Member Role Status Dates Dr. Will Rodriguez MD Family Provider Active Dr. Edson Khan MD Primary Care Provider Active Team Status: Inactive Member Role Status Dates Dr. Edson Khan MD Primary Care Provider, Referring Provider Active Olivia Madison VISITOR SERVICES ASSOCIATE, VISITOR SERVICES ASSOCIATE-C Attending Provider Active Team Status: Inactive Member Role Status Dates Dr. Edson Khan MD Primary Care Provi mela, Attending Provider, Referring Provider Active Team Status: Inactive Member Role Status Dates Dr. Edson Khan MD Primary Care Provider Active Dr. Janes Manrique DO Attending Provider, Referring Provider Active Team Status: Active Member Role Status Dates Dr. Edson Khan MD Primary Care Provider Active Dr. Janes Manrique DO Attending Provider, Referring Provider Active Team Status: Inactive Member Role Status Dates Dr. Edson Khan MD Primary Care Provider Active Dr. Masood Moreno DO Emergency Provider Active Team Status: Inactive Member Role Status Dates Dr. Edson Khan MD Primary Care Provider, Referring Provider Active Lucille Adonro CNM Attending Provider Active Team Status: Inactive Member Role Status Dates Dr. Edson Khan MD Primary Care Provider Active Dr. Masood Moreno DO Attending Provider, Emergency P rovider Active Team Status: Inactive Member Role Status Dates Dr. Edson Khan MD Primary Care Provider Active Lucille Adorno CNM Attending Provider, Referring Pr ovider Active Team Status: Inactive Member Role Status Dates Dr. Edson Khan MD Primary Care Provider Active SAMMY Nelson Attending Provider Active Team Status: Inactive Member Role Status Dates Dr. Edson Khan MD Primary Care Provider Active Dr. Hilary Collins MD Attending Provider, Referring P rovider Active Team Status: Inactive Member Role Status Dates Dr. Edson Khan MD Primary Care Provider Active Dr. Mayito Martinez MD Attending Provider, Emergency Provider Active Team Status: Active Member Role/Relationship Status Dates Dr. Will Rodriguez MD Family Provider Active Dr. Edson Khan MD Primary Care Provider Active Team Status: Inactive Member Role/Relationship Status Dates Dr. Edson Khan MD Primary Care Provider Active Start: April 15, 2025 Dr. Hilary Collins MD Attending Provider Active Start: April 15, 2025 Team Status: Inactive Member Role/Relationship Status Dates Dr. Edson Khan MD Primary Care Provider Active Start: May 24, 2025 End: May 24, 2025 Dr. Edson Khan MD Referring Provider Active Start: May 24, 2025 End: May 24, 2025 GENESIS Dorsey Attending Provider Active Start: May 24, 2025 End: May 24, 2025 Team Status: Inactive Member Role/Relationship Status Dates Dr. Edson Khan MD Primary Care Provider Active Start: May 24, 2025 End: May 24, 2025 GENESIS Dorsey Attending Provider Active Start: May 24, 2025 End: Ey[place] 9th, 2025 Team Status: Inactive Member Role/Relationship Status Dates Dr. Edson Khan MD Primary Care Provider Active Start: May 24, 2025 End: May 24, 2025 Dr. Edson Khan MD Referring Provider Active Start: May 24, 2025 End: May 24, 2025 GENESIS Dorsey Attending Provider Active Start: May 24, 2025 End: May 24, 2025 INFORMATION SOURCE (unrecogn ized section and content) DATE CREATED AUTHOR 05/08/2023 [facility] DATE CREATED AUTHOR AUTHOR'S ORGANIZ ATION 05/30/[address] [facility] FOR RECORDS PERTAINING TO PATIENTS WHO ARE [...] BE BASED ON THE PRIMARY CLINICAL RECORDS. [employer] provides no warranty or guarantee of the accuracy or completeness of information in this document.
[2025-06-21 23:06] VITALS: BP 121/78; PULSE 95; RESP 15; TEMP 36.8; O2SAT 99
== END 2025-06-21 23:07 | disposition home or self-care (01) ==
PROVIDERS: Emergency Provider Emergency Medicine; PCP Family Medicine; Visit Provider Emergency Medicine
DX: L03.113 Cellulitis of right upper limb (principal); F41.8 Other specified anxiety disorders; K21.9 Gastro-esophageal reflux disease without esophagitis; Z79.899 Other long term (current) drug therapy; L02.413 Cutaneous abscess of right upper limb
CPT/HCPCS: 99282

== ENCOUNTER → 2025-08-25 | Outpatient (CLI) | payer OTHER, SELFPAY ==
[2025-08-25 17:38] LABS: Barbiturate Urine NEGATIVE (< 200 ng/mL); Benzodiazepine Urine NEGATIVE (< 200 ng/mL); PCP Urine NEGATIVE (< 25 ng/mL); THC Urine NEGATIVE (< 50 ng/mL)
[2025-08-28 21:07] LABS: Chlamydia By Nucleic Acid AMP Negative (Negative); Gonococcus By Nucleic Acid AMP Negative (Negative)
== END | disposition home or self-care (01) ==
LOC: LABSPEC 16:29
PROVIDERS: PCP Family Medicine; Visit Provider Advanced Practice Midwife
DX: O09.90 Supervision of high risk pregnancy, unspecified, unspecified trimester (principal); O99.320 Drug use complicating pregnancy, unspecified trimester; F12.91 Cannabis use, unspecified, in remission; Z3A.00 Weeks of gestation of pregnancy not specified
CPT/HCPCS: 80307; 87086; 87088; 87491; 87591

== ENCOUNTER → 2025-09-03 | Outpatient (CLI) | payer OTHER, SELFPAY ==
--- OUTSIDE RECORDS SUMMARY | 2025-09-03 11:16 | XMS RPT_ITS | CCD ---
Author Organization [facility] Care Team Providers Care Marketing Budget Analyst Name Role Phone SAMMY Webster Primary Care Provider SAMMY Webster Attending Provider SAMMY Webster Referring Provider Dr. Eve Vasquez Attending Provider Dr. Eve Vasquez Other Provider Dr. Edson Khan Primary Care Provider Dr. Edson Khan Primary Care Provider Dr. Edson Khan Referring Provider Gricelda ASHRAF, REGIONAL EXTENSION SERVICE SPECIALIST-C Olivia Attending Provider [phone] Dr. Edson Khan Primary Care Provider Dr. Edson Khan Referring Provider YOSELIN Adorno Attending Provider SAMMY Faria Attending Provider [phone] Edson Khan MD Primary Care Provider [phone] Dr. Hilary Collins MD Attending Provider Dr. Edson Khan MD Referring Provider Wyatt ASHRAF-CMary Anne Attending Provider Dr. Hilary Collins MD Attending Provider Wyatt REGIONAL EXTENSION SERVICE SPECIALIST-CMary Anne Attending Provider Dr. Calixto Lagunas DO Emergency Provider Edson Khan Primary Care Unavailable Jennifer Russo Attending Unavailable Wen Fish Attending Unavailable Khan, Edson Referring Unavailable Khan, Edson Primary Care Unavailable Khan, Edson Primary Care Unavailable Wen Fish Attending Unavailable Khan, Edson Primary Care Unavailable Gricelda REGIONAL EXTENSION SERVICE SPECIALIST, Olivia Attending Unavailable Gricelda REGIONAL EXTENSION SERVICE SPECIALIST, Olivia Referring Unavailable Khan, Edson Primary Care Unavailable Gricelda REGIONAL EXTENSION SERVICE SPECIALIST, Olivia Attending Unavailable Gricelda REGIONAL EXTENSION SERVICE SPECIALIST, Olivia Referring Unavailable Mary Anne Schneider Attending Unavailable Khan, Edson Primary Care Unavailable Calixto Lagunas Attending Unavailable Khan, Edson Primary Care Unavailable Khan, Edson Primary Care Unavailable Khan, Edson Referring Unavailable Gricelda REGIONAL EXTENSION SERVICE SPECIALIST, Olivia Attending Unavailable Mary Anne Schneider Attending Unavailable Khan, Edson Referring Unavailable Khan, Edson Primary Care Unavailable Mary Anne Schneider Attending Unavailable Khan, Edson Referring Unavailable Khan, Edson Primary Care Unavailable Khan, Edson Referring Unavailable Khan, Edson Primary Care Unavailable Margaret Lamb Attending Unavailable Khan, Edson Primary Care Unavailable Khan, Edson Referring Unavailable Fabián Webster Attending Unavailable Medications Current Medications Medication Drug Class(es) Dates Sig (Normalized) Sig (Original) aluminum chloride 200 mg/ml topical solution (3 sources) Start: 03-20-2024 Aluminum Chloride (Drysol) 20 % solution Active 1 NMA TOPICAL .2 TIMES MONTHLY March 20, 2024 12:00am amphetamine aspartate 7.5 mg / amphetamine sulfate 7.5 mg / dextroamphetamine saccharate 7.5 mg / dextroamphetamine sulfate 7.5 mg oral tablet (3 sources) Central Nervous System Stimulant Start: 03-20-2024 Dextroamphetamin e-Amphetamine 30 mg tablet Active 1 {tbl} PO DAILY March 20, 2024 12:00am 24 hr buPROPion hydrochloride 300 mg extended release oral tablet (3 sources) Aminoketone Start: 03-20-2024 take 1 tablet by mouth once daily Bupropion Hcl 300 mg tablet extended release 24 hr Active 300 mg PO DAILY March 20, 2024 12:00am busPIRone hydrochloride 15 mg oral tablet (15 sources) Start: 03-20-2024 take 1 tablet by mouth twice daily Buspirone 15 mg tablet Active 15 mg PO TWICE A DAY March 20, 2024 12:00am Start: 05-25-2020 End: 03-20-2024 take 1 tablet by mouth twice daily Buspirone 10 mg tablet Discontinued 10 mg PO TWICE A DAY May 25, 2020 12:00am March 20, 2024 10:30am clindamycin 300 mg oral capsule (1 source) Lincosamide Antibacterial Start: 06-21-2025 take 1 capsule by mouth four times daily Clindamycin Hcl (Cleocin Hcl) 300 mg capsule Active 300 mg PO 4 TIMES DAILY 40 10 0 June 21, 2025 12:00am FLUoxetine 20 mg oral capsule (3 sources) Serotonin Reuptake Inhibitor Start: 05-25-2020 take 20 mg by mouth once daily Fluoxetine Active 20 MG PO DAILY May 25, 2020 3:16pm hydrOXYzine hydrochloride 50 mg oral tablet (1 source) Antihistamine Start: 06-21-2025 take 1 tablet by mouth three times daily as needed for anxiety Hydroxyzine Hcl 50 mg tablet Active 50 mg PO 3 TIMES DAILY NEEDED as needed for anxiety June 21, 2025 12:00am ondansetron 4 mg oral tablet (15 sources) Serotonin-3 Receptor Antagonist Start: 03-20-2024 take 1 tablet by mouth three times daily as needed for nausea and vomiting Ondansetron Hcl 4 mg tablet Active 4 mg PO THREE TIMES A DAY as needed for nausea and vomiting March 20, 2024 12:00am Start: 12-20-2019 End: 05-25-2020 take 1 tablet by mouth every eight hours as needed for nausea Ondansetron 4 MG tablet Discontinued 4 mg PO EVERY 8 HOURS NEEDED as needed for Nausea December 20, 2019 1:00am May 25, 2020 3:15pm traZODone hydrochloride 50 mg oral tablet (9 sources) Serotonin Reuptake Inhibitor Start: 07-04-2022 take 1 tablet by mouth once daily as needed for anxiety Trazodone 50 mg Tablet Active 50 mg PO DAILY NEEDED as needed for ANXIETY-RELATED N/V July 04, 2022 12:00am Completed/Discontinued Medications Medication Drug Class(es) Dates Sig (Normalized) Sig (Original) adapalene 0.001 mg/mg / benzoyl peroxide 0.025 mg/mg topical gel (12 sources) Retinoid Start: 07-31-2017 End: 05-15-2018 Adapalene-Benzoyl Peroxide 45 GM gel with pump Discontinued 45 g TP AT BEDTIME July 31, 2017 12:00am May 15, 2018 3:24pm cefdinir 300 mg oral capsule (12 sources) Cephalosporin Antibacterial Start: 12-20-2019 End: 05-25-2020 take 1 capsule by mouth every twelve hours Cefdinir 300 MG capsule Discontinued 300 mg PO Q12H December 20, 2019 1:00am May 25, 2020 3:13pm levonorgestrel 0.078141 mg/hr intrauterine system (20 sources) Progestin, Progestin-containin [...] ml medroxyPROGESTERone acetate 150 mg/ml prefilled syringe (12 sources) Progestin Start: 08-02-2022 End: 03-20-2024 inject 150 mg by intramuscular injection every three months Medroxyprogesterone (Depo-Provera) 150 mg/mL syringe Discontinued 150 mg IM every 3 months 1 4 October 06, 2023 11:39am March 20, 2024 10:30am metroNIDAZOLE 500 mg oral tablet (12 sources) Nitroimidazole Antimicrobial Start: 05-15-2018 End: 09-25-2018 take 1 tablet by mouth twice daily Metronidazole (Flagyl) 500 mg tablet Discontinued 500 mg PO TWICE A DAY 14 0 May 15, 2018 12:00am September 25, 2018 4:01pm nitrofurantoin, macrocrystals 25 mg / nitrofurantoin, monohydrate 75 mg oral capsule (3 sources) Nitrofuran Antibacterial Start: 05-24-2025 End: 05-29-2025 [...] omeprazole 20 mg delayed release oral capsule (12 sources) Proton Pump Inhibitor Start: 04-28-2021 End: 06-09-2022 take 1 capsule by mouth once daily Omeprazole 20 mg capsule,delayed release(DR/EC) Discontinued 20 mg PO DAILY April 28, 2021 12:00am June 09, 2022 1:08pm pantoprazole 40 mg delayed release oral tablet (12 sources) Proton Pump Inhibitor Start: 10-03-2019 End: 05-25-2020 take 1 tablet by mouth once daily Pantoprazole (Protonix) 40 mg tablet,delayed release (DR/EC) Discontinued 40 mg PO DAILY 30 0 October 03, 2019 1:00am May 25, 2020 3:15pm phenazopyridine hydrochloride 100 mg oral tablet (20 sources) Start: 05-24-2025 End: 06-21-2025 take 1 tablet by mouth after mealtime Phenazopyridine (Pyridium) 100 mg tablet Discontinued 100 mg PO after meals 3 0 May 24, 2025 12:00am June 21, 2025 10:27pm Start: 10-09-2019 End: 05-25-2020 take 1 tablet by mouth three times daily as needed for muscle spasms Phenazopyridine 200 MG tablet Discontinued 200 mg PO THREE TIMES A DAY as needed for Bladder Spasm 6 December 20, 2019 11:39am May 25, 2020 3:14pm promethazine hydrochloride 25 mg oral tablet (20 sources) Phenothiazine Start: 02-01-2023 End: 06-21-2025 take 1 tablet by mouth every six hours as needed for nausea and vomiting Promethazine 25 mg tablet Discontinued 25 mg PO EVERY 6 HOURS as needed for nausea and vomiting 60 6 February 01, 2023 8:19am June 21, 2025 10:27pm Start: 01-30-2023 End: 03-27-2024 take 1 tablet [...] 16, 2021 12:00am June 09, 2022 1:08pm sertraline 50 mg oral tablet (20 sources) [...] 2018 4:01pm spironolactone 50 mg oral tablet (12 sources) Aldosterone Antagonist Start: 04-28-2021 End: 03-22-2023 take 1 tablet by mouth once daily Spironolactone 50 mg tablet Discontinued 50 mg PO DAILY April 28, 2021 12:00am March 22, 2023 9:49am ACNE sulfamethoxazole 400 mg / trimethoprim 80 mg oral tablet (7 sources) Dihydrofolate Reductase Inhibitor Antibacterial, Sulfonamide Antimicrobial Start: 03-20-2024 End: 09-21-2024 Sulfamethoxazole-Tr imethoprim 400-80 mg tablet Discontinued 1 {tbl} PO DAILY March 20, 2024 12:00am September 21, 2024 2:34pm Start: 09-02-2023 End: 02-27-2024 Sulfamethoxazole-Trimethopri m 800-160 mg tablet Discontinued 1 {tbl} PO TWICE A DAY 6 September 02, 2023 1:00am February 27, 2024 1:20pm Start: 09-02-2023 take 1 tablet by ebony th twice daily Sulfamethoxazole-Trimethoprim Active 1 T ABLET PO TWICE A DAY September 02, 2023 12:00am traMADol hydrochloride 50 mg oral tablet (11 sources) Opioid Agonist Start: 03-26-2022 End: 06-09-2022 [...] upper quadrant pain] 09-23-2019 Episodic Anxiety disorders (15 sources) Mixed anxiety and depressive disorder; Translations: [Other specified anxiety disorders] Chronic Complication of device; implant or graft (3 sources) Contraceptive intrauterine device retained; Translations: [Other mechanical complication of intrauterine contraceptive device, initial encounter] Episodic Contraceptive and procreative management (8 sources) Patient encounter status; Translations: [Encounter for contraceptive management, unspecified] Episodic Disorders of teeth and jaw (11 sources) Toothache; Translations: [Other specified disorders of teeth and supporting structures] 04-03-2022 Episodic Gastrointestinal hemorrhage (3 sources) Rectal hemorrhage; Translations: [Hemorrhage of anus and rectum] 02-27-2024 Episodic Genitourinary symptoms and ill-defined conditions (7 sources) Dysuria; Translations: [Dysuria] Onset: 05-24-2025 05-24-2025 Episodic Headache; including migraine (5 sources) Headache; Translations: [Headache] 10-09-2019 Episodic Malaise and fatigue (5 sources) Fatigue; Translations: [Other fatigue] 10-09-2019 Episodic Menstrual disorders (16 sources) Break-through bleeding; Translations: [Excessive and frequent menstruation with irregular cycle] Onset: 10-29-2024 05-25-2020 Chronic Comment on above: likely secondary to atrophy. gcc sent. US shows correct positiong. plan 1 month aygestin and if persistent recommend removal and replacement with eileen Nausea and vomiting (12 sources) Nausea and vomiting; Translations: [Nausea with vomiting, unspecified] 06-16-2021 Episodic Other complications of (1 source) Supervision of high risk , unspecified, unspecified trimester; Translations: [Supervision of high risk , unspecified, unspecified trimester] Onset: 08-25-2025 Episodic Other complications of (1 source) Smoking (tobacco) complicating , unspecified trimester; Translations: [Smoking (tobacco) complicating , unspecified trimester] Onset: 08-25-2025 Episodic Other gastrointestinal disorders (5 sources) Diarrhea; Translations: [Diarrhea, unspecified] 10-09-2019 Episodic Other gastrointestinal disorders (3 sources) Constipation; Translations: [Constipation, unspecified] 02-27-2024 Episodic Other lower respiratory disease (12 sources) Dyspnea; Translations: [Shortness of breath] 10-09-2019 Episodic Other non-traumatic joint disorders (5 sources) Shoulder pain; Translations: [Pain in unspecified shoulder] 10-09-2019 Episodic Other non-traumatic joint disorders (5 sources) Pain in unspecified knee; Translations: [Knee pain] 10-09-2019 Episodic Other nutritional; endocrine; and metabolic disorders (5 sources) Loss of appetite; Translations: [Anorexia] 09-23-2019 Episodic Other screening for suspected conditions (not mental disorders or infectious disease) (5 sources) Thyroid function tests abnormal; Translations: [Abnormal results of thyroid function studies] Onset: 11-16-2024 11-04-2024 Episodic Comment on above: elevated antibodies Phlebitis; thrombophlebitis and thromboembolism (12 sources) H/O: thrombosis; Translations: [Personal history of other venous thrombosis and embolism] 09-27-2019 Episodic Residual codes; unclassified (12 sources) Past history of procedure; Translations: [Other specified postprocedural states] 10-09-2019 Episodic Residual codes; unclassified (12 sources) History of colonoscopy; Translations: [Other specified postprocedural states] 10-09-2019 Episodic Residual codes; unclassified (1 source) 9 weeks gestation of ; Translations: [9 weeks gestation of ] Onset: 08-25-2025 Episodic Skin and subcutaneous tissue infections (2 sources) Cellulitis of right forearm; Translations: [Cellulitis of right upper limb] Onset: 06-23-2025 06-21-2025 Episodic Spondylosis; intervertebral disc disorders; other back problems (5 sources) Neck pain; Translations: [Cervicalgia] 10-09-2019 Episodic Superficial injury; contusion (7 sources) Contusion of lower limb; Translations: [Contusion of left lower leg, initial encounter] 03-17-2023 Episodic Unclassified (1 source) Cannabis use, unspecified, in remission; Translations: [Cannabis use, unspecified, in remission] Onset: 08-25-2025 Urinary tract infections (20 sources) Urinary tract [...] of transmission] Onset: 09-26-2024 04-28-2021 Episodic Other upper respiratory disease (1 source) Nasal congestion; Translations: [Nasal congestion] Onset: 09-21-2024 Episodic Other upper respiratory infections (1 source) Acute upper respiratory infection, unspecified; Translations: [Acute upper respiratory infection, unspecified] Onset: 09-21-2024 Episodic Unclassified (12 sources) sudden weight loss 05-14-2022 Results Test Name Value Interpretation Reference Range Facility Grain Spouter Office Visit Reporton 08-25-2025 Grain Spouter Office Visit Report [facility] [address], [address] [place] [address] OFFICE VISIT Date of Service: 08/25/25 MR#: [id number] Acct: [id number] Name: KARIS BRIGHT Rep #: [id number] : 2000 Provider: YOSELIN So ams Age/Sex: 24/F Location: [facility] Status: Signed Intake Vital Signs 06/21/25 22:27 08/12/25 12:18 08/25/25 14:41 Height 5 ft 6 in 5 ft 8 in 5 ft 8 in Weight: 153 lb 8 oz BMI 23.3 BP 105/74 Intake Visit Reasons: *EST* NOB LMP 06/22, ZACH 03/29 Gas Collection System Operator Required: No Is patient in pain?: No Allergies No Known Allergies Allergy (Verified 08/25/25 14:43) Medications ???Medication ???Instructions ???Recorded ???Confirmed ???Type aluminum chloride 20 % topical 1 applic topical .2 TIMES MONTHLY 03/20/24 08/25/25 History solution (Drysol) bupropion HCl 300 mg 24 hr tablet, 300 mg PO DAILY 03/20/24 5 History extended release buspirone 15 mg tablet 15 mg PO BID 03/20/24 08/25/25 His tory hydroxyzine HCl 50 mg tablet 50 mg PO TID PRN PRN anxiety 06/2108/25/25 History ondansetron HCl 4 mg tablet 4 mg PO TID PRN nausea and 5 08/25/25 Rx vomiting #90 tabs docosahexaenoic acid 200 mg mg PO 08/12/25 08/25/25 History capsule ( DHA) promethazine 12.5 mg tablet 12.5 mg PO Q6H PRN nausea and 08/1608/25/25 Rx vomiting #60 tabs Last Menstrual Period: 06/22/25 Zika: Zika virus screening: Negative : Yes Have you fallen in the past year?: No PFSH PFSH Medical History History of DVT (deep vein thrombosis) Gastric reflux Depression with anxiety Surgical History History of hysteroscopy Hx of colonoscopy History of esophagogastroduodenoscopy (EGD) History of repair of anterior cruciate ligament of left knee Family History Mother High cholesterol Father High cholesterol Grandfather Heart disease Dementia Grandfather Dementia Social History adopted: No household members: significant other number of children: 0 current occupational status: employed 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 [employer] current occupational exposures/hazards: No pets and animals: Yes pets and animals: dog(s) history of recent travel: Yes ([place] ) out of state: Yes out of country: No sexually active: Yes Smoking Status: Former smoker quit date: 07/28/25 second hand exposure: No alcohol intake: current alcohol intake frequency: holidays/special occasions only details: Not while substance use type: former substance user Date of last use: 3+ years ago and marijuana well-balanced diet: about half the time caffeine: Yes Type: coffee Number of servings: 1 eating out: 4 or more times/week during the past year weight has: increased > 10 lbs what type of physical activity do you participate in: none frequency: does not exercise mairbell/gnosticism: Pentecostalism seatbelt use: always do you feel safe at home: Yes additional social history: Fiance: Julio Cesar Capellan History 1 Elective abortions 0 Hx Para 0 Spontaneous abortions 0 Hx # Term Pregnancies Ectopic pregnancies Hx # Pregnancies Multiple births # of living children HPI *EST* NOB LMP 06/22, ZACH 03/29 Details: KARIS BRIGHT is a 24 year old who presents for New OB visit. OB Visit ZACH Calculator Estimated Delivery Date Method Current WG Current Estimate 03/29/26 LMP (Certain) 9w 1d Other Estimates 03/29/26 Ultrasound #1 9w 1d Estimated Due Date: 03/29/26 Expected Delivery Route/Plan Labor Preferences- CB/BF classes: [] labor support person: [] labor intervention preferences: [] pain management options preferred: [] cut cord/dad catch: [] : [] PP control planned: [] discussed possible routes of delivery and associated risks: [] special requests: [] Specific Issue/Plans Covid status: [] Flu vaccine: [] Tdap vaccine: [] Rhogam: [] LARC form signed: [] Problem list reviewed and updated with the most current plan of care details and appropriate orders placed. Relevant counseling for the gestational age provided. Continue routine care and follow up unless otherwise noted in visit notes/problem list details Initial Weight: 153 lb Date -???-???-???-???-???-???-? ??-???-???-???-???-???- EGA Weight BP Urine Prot -???-???-???-???-???-???-? ??-???-???-???-???-???- Glucose FHR FuHt Pres Dilation -???-???-???-???-???-???-? ??-???-???-???-???-???- Effaced St Visit Note 08/25/25 -???-???-???-???-???-???-? ??-???-???-???-???-???- 9w 1d 153 lb 8 oz (+8 (more content not included)... Normal [facility] Urine Drug Screen (VISTA)on 08-25-2025 AMPHETAMINES Negative Normal <1000 ng/mL [facility] Comment on above: Order Comment: UNK Performed By: #### L [id number] #### [facility] [address] [place], [place], [id number] BARBITIURATES Negative Normal < 200 ng/mL [facility] Comment on above: Order Comment: UNK Performed By: #### L [id number] #### [facility] [address] [place], [place], [id number] BENZODIAZIPINE Negative Normal < 200 ng/mL [facility] Comment on above: Order Comment: UNK Performed By: #### L [id number] #### [facility] [address] [place], [place], [id number] BUP Ur Drug Scr Negative Normal < 200 ng/mL [facility] Comment on above: Order Comment: UNK Performed By: #### L [id number] #### [facility] [address] [place], [address] COCAINE Negative Normal < 300 ng/mL [facility] Comment on above: Order Comment: UNK Performed By: #### L [id number] #### [facility] [address] [place] [id number] Fentanyl Negative Normal <5 ng/mL [facility] Comment on above: Order Comment: UNK Result Comment: CONF IRMATORY TESTING FOR ALL POSITIVE URINE DRUG SCREEN RESULTS WILL ONLY BE SENT OUT UPON PHYSICIAN ORDER. Ember Pro Urine Drug Screen methods provide only preliminary analytical test results. A more specific alternate chemical method must be used in order to obtain a confirmed analytical result. Gas chromatography/mass spectrometery (GC/MS) is the preferred confirmatory method. Clinical consideration and professional judgement should be applied to any drug of abuse test result, particularly when preliminary positive results are used. Urine TCA testing must be ordered separately. Use test mnemonic: UTCA Performed By: #### L [id number] #### [facility] [address] [place] [address] METHADONE Negative Normal < 300 ng/mL [facility] Comment on above: Order Comment: UNK Performed By: #### L [id number] #### [facility] [address] [place] [address] OPIATES Negative Normal < 300 ng/mL [facility] Comment on above: Order Comment: UNK Performed By: #### L [id number] #### [facility] [address] [place] [address] OXYCODONE Negative Normal < 100 ng/mL [facility] Comment on above: Order Comment: UNK Performed By: #### L [id number] #### [facility] [address] [place] [address] PCP Negative Normal < 25 ng/mL [facility] Comment on above: Order Comment: UNK Performed By: #### L [id number] #### [facility] [address] [place] [id number] THC Negative Normal < 50 ng/mL [facility] Comment on above: Order Comment: UNK Performed By: #### L [id number] #### [facility] [address] [place], [address] Office Visit Reporton 2024 Office Visit Report [facility] [address] [place] [address] OFFICE VISIT Date of Service: MR#: [id number] Acct: [id number] Patient: KARIS BRIGHT Rep #: [id number] : 2000 Provider: Jennifer Russo RN Age/Sex: 24/F Location: [facility] Status: Signed Intake Vital Signs 06/21/25 22:27 08/12/25 12:18 Height 5 ft 6 in 5 ft 8 in Weight: 154 lb 12.232 oz 155 lb 8 oz BMI 25.0 23.6 BP 127/87 H 98/62 Respiration 19 H Pulse 110 H Temp 98.4 F Temp Source Oral Pulse Oximetry (%) 100 Intake Visit Reasons: Amb Documentation Chief Complaint: in person PNOB Allergies No Known Allergies Allergy (Verified 08/12/25 12:19) Medications ???Medication ???Instructions ???Recorded ???Confirmed ???Type aluminum chloride 20 % topical 1 applic topical .2 TIMES MONTHLY 03/20/24 08/12/25 History solution (Drysol) bupropion HCl 300 mg 24 hr tablet, 300 mg PO DAILY 03/20/24 5 History extended release buspirone 15 mg tablet 15 mg PO BID 03/20/24 08/12/25 His tory hydroxyzine HCl 50 mg tablet 50 mg PO TID PRN PRN anxiety 06/2108/12/25 History ondansetron HCl 4 mg tablet 4 mg PO TID PRN nausea and 5 08/12/25 Rx vomiting #90 tabs docosahexaenoic acid 200 mg mg PO 08/12/25 08/12/25 History capsule ( DHA) Is last menstrual period known: Yes Post menopausal: No Patient : Yes Have you fallen in the past year?: No Nurse's Note: Pt here for secondary amenorrhea. Vitals WNL. PNOB questions completed. Problem list, allergies, and medications updated. First trimester ACOG education completed. Assessment and Plan Assessment and Plan (1) History of marijuana use: Status: Acute Comment: Reports last use 3+years ago - Random tox screen ordered (2) Tobacco use affecting , antepartum: Status: Acute Comment: Vapes: stopped w/+ HPT 07/28/25 (3) : Status: Acute Comment: Discussed genetic/carrier testing - undecided (4) Supervision of high-risk : Status: Acute Comment: , ZACH 03/29/26, Fiance: Julio Cesar (5) Abnormal thyroid function test: Status: Acute Comment: elevated antibodies; thyroid labs ordered w/NOB Orders: Orders CBC W/Diff, Automated Today O09.90 - Supervision of high risk , unspecified, unspecified trimester Type Screen Today O09.90 - Supervision of high risk , unspecified, unspecified trimester Rubella IgG Today O09.90 - Supervision of high risk , unspecified, unspecified trimester Hepatitis C Antibody Today O09.90 - Supervision of high risk , unspecified, unspecified trimester Hepatitis B Surface Antigen Today O09.90 - Supervision of high risk , unspecified, unspecified trimester Culture, Urine Today O09.90 - Supervision of high risk , unspecified, unspecified trimester Syphilis Antibodies Today O09.90 - Supervision of high risk , unspecified, unspecified trimester Chlamydia/GC OWEN aptima Today O09.90 - Supervision of high risk , unspecified, unspecified trimester HIV Today O09.90 - Supervision of high risk , unspecified, unspecified trimester Thyroid Stim Hormone (TSH) Today O09.90 - Supervision of high risk , unspecified, unspecified trimester, R94.6 - Abnormal results of thyroid function studies Free T4 Today O09.90 - Supervision of high risk , unspecified, unspecified trimester, R94.6 - Abnormal results of thyroid function studies [facility] Misc. Today O09.90 - Supervision of high risk , unspecified, unspecified trimester Urine Drug Screen Today F12.91 - Cannabis use, unspecified, in remission, O09.90 - Supervision of high risk , unspecified, unspecified trimester Clinical Quality Measures Falls Risk Screening/Assistive Devices Have you fallen in the past year?: No 08/12/25 1825 Date Margaret Gomez Signature: Date (if applicable) CC: Normal [facility] Emergency Department Summary on 06-21-2025 Emergency Department Summary [facility] Medical Records Department [address] [place] [address] Emergency Department Summary 06/21/25 MR#: [id number] Acct: [id number] Name: KARIS BRIGHT Rep #: [id number] : 2000 24 From: Calixto Lagunas DO PCP: Dr. Edson Khan MD Status:DEP ER Location: ED HPI History of Present Illness Chief Complaint: Cellulitis Informant: patient Narrative Narrative: Patient is a 24-year-old female with past medical history of anxiety and depression. She states that she had a scab on her right forearm. She states then she spent 3 days swimming in a [place]. She reports after this she noticed that the area was becoming painful red and swollen. She denies any active discharge from the site and she denies any fevers associated with it. She states she does not have a history of immunosuppression but with concern for developing infection comes in for evaluation [facility] Medical History Vapes nicotine containing substance Marijuana use History of DVT (deep vein thrombosis) Easy bruising Excessive bleeding Restless legs Gastric reflux Smoker PONV (postoperative nausea and vomiting) SOB (shortness of breath) sudden weight loss History of blood clots Depression with anxiety Home Medications ???Medication ???Instructions ???Recorded ???Last Taken ???Type trazodone 50 mg tablet 50 mg PO DAILY PRN PRN 07/04/22 Un known History ANXIETY-RELATED N/V aluminum chloride 20 % topical 1 applic topical .2 TIMES MONTHLY 03/20/24 Unknown History solution (Drysol) bupropion HCl 300 mg 24 hr tablet, 300 mg PO DAILY 03/20/24 4 History extended release buspirone 15 mg tablet 15 mg PO BID 03/20/24 03/26/24 His tory dextroamphetamine-amphetam ine 30 1 tab PO DAILY 03/20/24 03/26/24 H istory mg tablet ondansetron HCl 4 mg tablet 4 mg PO TID PRN nausea and vomitin g 03/20/24 03/26/24 History clindamycin HCl 300 mg capsule 300 mg PO 4X/DAY 10 days #40 caps 06/21/25 Unknown Rx (Cleocin HCl) hydroxyzine HCl 50 mg tablet 50 mg PO TID PRN PRN anxiety 06/21 Unknown History Allergy/AdvReac Type Severity Reaction Status Date / Time No Known Allergies Allergy Verified 06/21/25 22:27 Family History Mother High cholesterol Father High cholesterol Surgical History History of hysteroscopy Hx of colonoscopy History of esophagogastroduodenoscopy (EGD) History of repair of anterior cruciate ligament of left knee Social History current occupational status: employed current occupation: [employer] Smoking Status: Current some day smoker tobacco type: e-cigarettes second hand exposure: No alcohol intake: never substance use type: does not use caffeine: Yes what type of physical activity do you participate in: none frequency: does not exercise seatbelt use: always additional social history: roula FLORES ROS ED Constitutional Constitutional ED: Denies chills or fever(s) Cardiovascular Cardiovascular: Denies chest pain Respiratory/Chest Respiratory/Chest: Denies cough or dyspnea Gastrointestinal Gastrointestinal: Denies abdominal pain, diarrhea, nausea or vomiting Musculoskeletal Musculoskeletal: Reports other Details: Positive right forearm pain Integumentary Reports other Details: Positive redness and swelling right forearm Neurologic Neurologic: Denies headache(s) or paresthesias Psychiatric Psychiatric: Reports anxiety and depression Hematologic/Lymphatic Hematologic/Lymphatic: Denies easy bleeding or easy bruising Allergic/Immunologic Allergic/Immunologic ED: Denies urticaria EXAM Physical Exam Const Vital Signs: 06/21/25 22:27 06/21/25 22:31 06/21/25 23:06 Temperature 98.4 F 98.4 F 98.2 F Temperature Source Oral Oral Pulse Rate 110 H 110 H 95 Respiratory Rate 19 H 15 15 Blood Pressure 127/87 H 121/78 H 121/78 H Blood Pressure Mean 100 92 92 Pulse Ox 100 99 99 Oxygen Delivery Method Room Air Room Air Positive well nourished and well developed General Appearance ED: well developed HEENT HEENT Narrative: Normocephalic atraumatic Eyes PERRL and EOMs intact bilaterally General Eye ED: Negative for scleral icterus Neck supple Resp normal respiratory effort and clear to auscultation bilaterally Cardio regular rate and regular rhythm Extremity Extremity Narrative: Right upper extremity is neurovascularly intact; AIN/PIN are intact and normal To the dorsal aspect of the distal third of the right forearm there is a 2 cm circular area of erythema and asymmetric warmth with a small less than half centimeter area of indura (more content not included)... Normal [facility] Urine Cultureon 05-27-2025 URC Culture exhibits no growth. Normal [facility] Comment on above: Performed By: #### M 100.2200 #### [facility] Laboratory [address] [place], [place], [id number] Urine cultureOrdered By: Matt Schneider on 05-26-2025 Bacteria identified Cx Nom (U) Culture exhibits no growth. [facility] Urgent Care Visit Reporton 0 05-24-2025 Urgent Care Visit Report [facility] [address], [address] [place], [place] [address] OFFICE VISIT Date of Service: 05/24/25 MR#: [id number] Acct: [id number] Name: KARIS BRIGHT Rep #: [id number] : 2000 Provider: GENESIS Schneider Age/Sex: 24/F Location: [facility] Status: Signed Intake Vital Signs 09/26/24 13:12 05/24/25 13:30 Height 5 ft 6 in BP 100/66 Blood Pressure Location Lt brachial Position Sitting Respiration 14 Pulse 76 Pulse Source NIBP Temp 97.7 F L Temp Source Oral Pulse Oximetry (%) 99 Oxygen Delivery Method room air Intake Visit Reasons: CONCERN FOR UTI Chief Complaint: dysuria, back pain, frequency 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 concern for UTI PFSH Medical History Vapes nicotine containing substance [...] History current occupational status: employed current occupation: [employer] Smoking Status: Current some day smoker tobacco type: e-cigarettes second hand exposure: No alcohol intake: never substance use type: does not use caffeine: Yes what type of physical activity do you participate in: none frequency: does not exercise seatbelt use: always additional social history: fience - Naif HPI HPI Chief Complaint: dysuria, back pain, frequency [...] or worsen, (more content not included)... Normal [facility] Thyroid Peroxidase ABon 01- THYR PEROX AB 58 IU/mL High 0-34 [facility] Comment on above: Result Comment: Perf ormed at: CB - [facility] [address] [id number] Director Hedis: Aramis Buitrago PhD, Phone: [phone] Performed By: #### L 3300.6900 ####[facility] [address] [place], [place], [address] Chlamydia/GC OWEN aptimaon CHLAMY,NUC ACID Negative Normal Negative [facility] Comment on above: Performed By: #### L 7000.1800 #### [facility] [address] [place], [place], [address] GC BY NUC ACID Negative Normal Negative [facility] Comment on above: Result Comment: Perf ormed at: =G - [facility] [address] [id number] Director Hedis: Mounika Hicks MD, Phone: [phone] Performed By: #### L 7000.1800 #### [facility] [address] [place], [address] HSV 1 AND 2 IgGon 09-30-2024 HSV 2 IgG Normal [facility] Comment on above: Result Comment: RESU LT: [...] HSV-2 IgG assay. Performed By: #### L 3890.6300, L509.8000, L501.9520, L3400.1610, L3300.1750, L3300.6900, L506.0400, L3890.6005, L3100.5125 ####[facility] [address] [place], [place], [address] HSV 1 IgG Normal [facility] Comment on above: Result Comment: RESU LT: NON REACTIVE Please note reference interval change HSV-1 IgG testing performed using the [employer] HSV-1 IgG assay. Performed By: #### L 3890.6300, L509.8000, L501.9520, L3400.1610, L3300.1750, L3300.6900, L506.0400, L3890.6005, L3100.5125 ####[facility] [address] [place], [address] Thyroid Peroxidase ABon 09-15 THYR PEROX AB 69 IU/mL High 0-34 [facility] Comment on above: Result Comment: Perf ormed at: - [facility] [address] [id number] Director Hedis: Aramis Buitrago PhD, Phone: [phone] Performed By: #### L 3890.6300, L509.8000, L501.9520, L3400.1610, L3300.1750, L3300.6900, L506.0400, L3890.6005, L3100.5125 ####[facility] [address] [place], [address] Estradiolon 09-26-2024 ESTRADIOL 35.5 pg/mL Normal [facility] Comment on above: Result Comment: NORM AL [...] DETERMINE ESTRADIOL CONCENTRATION. Performed By: #### L 3890.6300, L509.8000, L501.9520, L3400.1610, L3300.1750, L3300.6900, L506.0400, L3890.6005, L3100.5125 #### [facility] [address] [place], [address] Follicle Stimulating Hormone on 09-26-2024 FSH 5.5 mIU/mL Normal [facility] Comment on above: Result Comment: NORMAL REFERENCE RANGES FEMALE FOLLICULAR 2.3 - 12.6 mIU/mL MID-CYCLE PEAK 5.2 - 17.5 mIU/mL LUTEAL 1.7 - 12.9 mIU/mL POST-MENOPAUSAL ON MHT 5.9 - 72.8 mIU/mL NOT ON MHT 12.7 - 132.2 mlU/mL MALE 0.7 - 10.8 mIU/mL Performed By: #### L 3890.6300, L509.8000, L501.9520, L3400.1610, L3300.1750, L3300.6900, L506.0400, L3890.6005, L3100.5125 #### [facility] [address], [address] HIV - WCHon 09-26-2024 HIV Non-Reactive Normal Nonreactive [facility] Comment on above: Order Comment: Reaso n for Exam: std exposure Performed By: #### L 3890.6300, L509.8000, L501.9520, L3400.1610, L3300.1750, L3300.6900, L506.0400, L3890.6005, L3100.5125 ####[facility] [address] [place], [address] Hepatitis C Antibodyon 09-26 Hepatitis C AB Non-Reactive Normal Nonreactive [facility] Comment on above: Order Comment: Reaso n for Exam: std exposure Result Comment: Non Reactive: < 0.8 Equivocal: >/= 0.8 to < 1.0 Reactive: >/= 1.0 The CDC requires that a reactive/equivocal HCV antibody result be sent out for confirmation. HCV Quant by PCR testing. Performed By: #### L 3890.6300, L509.8000, L501.9520, L3400.1610, L3300.1750, L3300.6900, L506.0400, L3890.6005, L3100.5125 ####[facility] [address] [place], [address] L509.8000on 09-26-2024 Syphilis Abs Non-Reactive Normal [facility] Comment on above: Order Comment: Reaso n for Exam: std exposure Performed By: #### L 3890.6300, L509.8000, L501.9520, L3400.1610, L3300.1750, L3300.6900, L506.0400, L3890.6005, L3100.5125 #### [facility] [address] 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 Normal [facility] T4 Free Directon 09-26-2024 T4 FREE DIRECT 1.39 ng/dL Normal 0.76-1.46 [facility] Comment on above: Performed By: #### L 3890.6300, L509.8000, L501.9520, L3400.1610, L3300.1750, L3300.6900, L506.0400, L3890.6005, L3100.5125 #### [facility] [address] [place], [address] Thyroid Stim Hormone (TSH)on 09-26-2024 TSH 0.456 uIU/mL Normal 0.358-3.740 [facility] Comment on above: Performed By: #### L 3890.6300, L509.8000, L501.9520, L3400.1610, L3300.1750, L3300.6900, L506.0400, L3890.6005, L3100.5125 #### [facility] [address] [place], [place], [address] Urgent Care Visit Reporton 1 11-22-2023 Urgent Care Visit Report [facility] [address], [address] [place], [place] [address] OFFICE VISIT Date of Service: 09/21/24 MR#: [id number] Acct: [id number] Name: KARIS BRIGHT Rep #: [id number] : 2000 Provider: GENESIS Schneider Age/Sex: 23/F Location: [facility] Status: Signed Intake Vital Signs 03/27/24 09:40 [...] Covid,Flu and RSV which we are negative. [facility] Medical History Vapes nicotine containing substance Marijuana [...] History current occupational status: employed current occupation: [employer] Smoking Status: Current some day smoker tobacco [...] salt wate (more content not included)... Normal [facility] Office Visit Reporton 2023 Office Visit Report [facility] [address] [place] [address] OFFICE VISIT Date of Service: 09/20/24 MR#: [id number] Acct: [id number] Patient: KARIS BRIGHT Rep #: [id number] : 2000 Provider: SAMMY Li Age/Sex: 23/F Location: [facility] Status: Signed Employer Purchased Covid Test Note: Patient here today for Covid Testing, requested by their Employer. Assessment and Plan Assessment and Plan Orders: Orders POC Cepheid Covid, FluAB, RSV Today R09.81 - Nasal congestion 09/26/24 0622 Date Fabián Gomez Signature: Date (if applicable) CC: Normal [facility] Basophil percentageOrdered B y: Mayito Martinez on 09-02-2023 Basophil percentage 10-25 SEEN /hpf 0-5 [facility] Bilirubin Test strip Ql (U)O rdered By: Mayito Martinez on 09-02-2023 Bilirubin Ql (U) 6 mg/dL Negative [facility] Comment on above: COLOR OF URINE MAY A FFECT DIPSTICK RESULTS. Culture, urineOrdered By: Calvin Martinez on 09-02-2023 Bacteria identified Cx Nom (U) Presumptive E. coli [facility] Ketones Test strip Ql (U)Ord ered By: Mayito Martinez on 09-02-2023 Ketones Ql (U) Negative Negative [facility] Mucus LM Ql (Urine sed)Order ed By: Mayito Martinez on 09-02-2023 Mucus Ql (Urine sed) 1+ /hpf [facility] Nitrite Test strip Ql (U)Ord ered By: Mayito Martinez on 09-02-2023 Nitrite Ql (U) Positive Negative [facility] Protein Test strip Ql (U)Ord ered By: Mayito Martinez on 09-02-2023 Protein Ql (U) 30 mg/dl Negative [facility] Squamous epithelial cells de tection in urine sediment by light microscopyOrdered By: Mayito Martinez on 09-02-2023 Epithelial cells.squamous LM Ql (Urine sed) 0-5 SEEN /hpf 5-10 [facility] Urine blood detectionOrdered By: Mayito Martinez on 09-02-2023 RBC Ql (U) 10 /ul Negative [facility] RBC Ql (U) 0-5 SEEN /hpf 0-5 [facility] Urine clarityOrdered By: Mahad Martinez on 09-02-2023 Clarity (U) Sl. Cloudy Clear [facility] Urine color determinationOrd ered By: Mayito Martinez on 09-02-2023 Color (U) SEE COMMENT BELOW Yellow [facility] Comment on above: Visual Urine Color: ORANGE Urine glucose detectionOrder ed By: Mayito Martinez on 09-02-2023 Glucose Ql (U) Normal mg/dl Normal [facility] Urine leukocyte esterase det ection by dipstickOrdered By: Mayito Martinez on 09-02-2023 Leukocyte esterase Test strip Ql (U) 25 /ul Negative [facility] Urine pHOrdered By: Mayito Martinez on 09-02-2023 pH (U) 5.0 [pH] 5.0 - 8.0 [facility] Urine sediment bacteria coun t by microscopy (number/high power field)Ordered By: Mayito Martinez on 09-02-2023 Bacteria LM.HPF (Urine sed) [#/Area] 1 /[HPF] None Seen [facility] Urine specific gravity measu rementOrdered By: Mayito Martinez on 09-02-2023 Specific gravity (U) [Rel density] 1.020 1.002-1.030 [facility] Urobilinogen Auto test strip Ql (U)Ordered By: Mayito Martinez on 09-02-2023 Urobilinogen Ql (U) 8 mg/dl Normal [facility] CNPNon 05-08-2023 CNPN Telephone (PEDSWS) -- KARIS BRIGHT ([id number]) 1 F Date Time Provider Department 05/08/23 TYLER LOVELACE PEDSWS During your visit today, we recorded the [...] Date Reviewed: 09/23/2019 Reviewed by: Cindy Alvarado (Rn) - Fully Assessed Reason for Visit: shot [...] by LAKESHIA YOST LPN on 05/08/23 Normal [facility] Cervical or vagninal specime n microscopic examination by cytology stain (reported asOrdered By: Lucille Adorno on 03-22-2023 Cytology report Cyto stain Doc (Cvx/Vag) Comment . [facility] Comment on above: The Pap smear is [...] rRNA OWEN+probe Ql (Unsp spec) Negative Negative [facility] Laboratory - CytologyOrdered By: Lucille Adorno on 03-22-2023 In House Cra Cyto stain Nom (Cvx/Vag) [ID] Comment . [facility] Comment on above: Claudia Chaudhary, [employer] hnologist (ASCP) Laboratory - Microbiology an d Antimicrobial susceptibilityOrdered By: Lucille Adorno on 03-22-2023 N. gonorrhoeae DNA OWEN+probe Ql (Unsp spec) Negative Negative [facility] Comment on above: Performed at: =G - [facility] [address] [id number] Director: Mounika Hicks MD, Phone: [phone] Laboratory - Miscellaneous t estsOrdered By: Lucille Adorno on 03-22-2023 Service comment (Unsp spec) [Interp] Comment . [facility] Comment on above: This liquid based Th inPrep(R) pap test was screened withthe use of an image guided system. Service comment (Unsp spec) [Interp] . . [facility] No Panel InformationOrdered By: Lucille Adorno on 03-22-2023 Human Papillomavirus Screen Comment . [facility] Comment on above: The HPV DNA reflex c margaux were not met with this specimenresult therefore, no HPV testing was performed.Performed at: - [facility] [address] [id number] Director: Mounika Hicks MD, Phone: [phone] Pathology report final diagnosis Narrative Comment . [facility] Comment on above: NEGATIVE FOR INTRAEP ITHELIAL LESION OR MALIGNANCY. Laboratory - Chemistry and C hemistry - challengeon 10-11-2022 HCG ( test) Ql (U) Negative [facility] Absolute lymphocyte countOrd ered By: Dr. Khan on 09-30-2022 Lymphocytes Auto (Unsp spec) [#/Vol] 1.39 10*3/uL 0.83-4.51 [facility] Basophil percentageOrdered B y: Dr. Khan on 09-30-2022 Basophils/100 WBC (Bld) 1.2 % 0-1 [facility] Chloride [Moles/Vol] 105 mmol/L 98-107 [facility] Eosinophils/100 WBC (Bld) 2.6 % 0-5 [facility] Glucose [Mass/Vol] 77 mg/dL 74-106 [facility] Neutrophils (Bld) [#/Vol] 2.4 10*3/uL 2.0-7.7 [facility] Neutrophils/100 WBC (Bld) 55.9 % 47-70 [facility] Potassium [Moles/Vol] 4.0 mmol/L 3.5-5.1 [facility] Sodium [Moles/Vol] 138 mmol/L 136-145 [facility] WBC (Bld) [#/Vol] 4.3 10*3/uL 4.4-11.0 [facility] Blood erythrocytes count (nu mber/volume)Ordered By: Dr. Khan on 09-30-2022 RBC (Bld) [#/Vol] 4.54 10*6/uL 4.2-5.4 [facility] Blood hemoglobin measurement (mass/volume)Ordered By: Dr. Khan on 09-30-2022 Hemoglobin (Bld) [Mass/Vol] 13.4 g/dL 12.0-15.0 [facility] Blood lymphocytes/100 leukoc ytesOrdered By: Dr. Khan on 09-30-2022 Lymphocytes/100 WBC (Bld) 32.6 % 19-41 [facility] Blood monocytes/100 leukocyt esOrdered By: Dr. Khan on 09-30-2022 Monocytes/100 WBC (Bld) 7.5 % 0-10 [facility] Blood platelet mean volumeOr dered By: Dr. Khan on 09-30-2022 Platelet mean volume (Bld) [Entitic vol] 11.2 fL 6.2-12.0 [facility] Determination of erythrocyte mean corpuscular volume (MCV)Ordered By: Dr. Khan on 09-30-2022 MCV (RBC) [Entitic vol] 93.4 fL 81-99 [facility] Hematocrit Auto (Bld) [Volum e fraction]Ordered By: Dr. Khan on 09-30-2022 Hematocrit (Bld) [Volume fraction] 42.4 % 37-47 [facility] Laboratory - Chemistry and C hemistry - challengeOrdered By: Dr. Khan on 09-30-2022 CO2 [Moles/Vol] 26.0 mmol/L 21.0-32.0 [facility] Urea nitrogen/Creatinine [Mass ratio] 11.9 mg/mg 10-20 [facility] Laboratory - Hematology and Cell countsOrdered By: Dr. Khan on 09-30-2022 Erythrocyte distribution width (RBC) [Entitic vol] 43.8 fL 35.1-43.9 [facility] Erythrocyte distribution width (RBC) [Ratio] 12.8 % 11.6-14.6 [facility] Immature granulocytes/100 WBC (Bld) 0.200 % 0.0-0.9 [facility] Comment on above: IG% - Immature Granu locytes (promyelocytes, myelocytes and metamyelocytes) > 1% indicates that a LEFT SHIFT is Present. MCH (RBC) [Entitic mass] 29.5 pg 27.0-32.0 [facility] Nucleated RBC/100 WBC (Bld) [Ratio] 0 % 0-5 [facility] MCHC Auto (RBC) [Mass/Vol]Or dered By: Dr. Khan on 09-30-2022 MCHC (RBC) [Mass/Vol] 31.6 g/dL 32-36 [facility] No Panel InformationOrdered By: Dr. Khan on 09-30-2022 Estimated GFR (MDRD) Amer 141 mL/min >60 [facility] Comment on above: GFR Calc Estimated GFR (MDRD) Non-Af Amer 116 mL/min >60 [facility] Comment on above: Non- GFR Calc Thyroid Stimulating Hormone (TSH) 0.72 uIU/mL 0.358-3.74 [facility] Platelets bldOrdered By: Dr. Khan on 09-30-2022 Platelets (Bld) [#/Vol] 193 10*3/uL 150-450 [facility] Serum or plasma calcium juliette urement (mass/volume)Ordered By: Dr. Khan on 09-30-2022 Calcium [Mass/Vol] 9.3 mg/dL 8.5-10.1 [facility] Serum or plasma creatinine m easurement (mass/volume)Ordered By: Dr. Khan on 09-30-2022 Creatinine [Mass/Vol] 0.67 mg/dL 0.55-1.02 [facility] Comment on above: The validity of the calculated GFR & GFRAA in patients over 70 years has not been determined. Clinical correlation is essential. Serum or plasma urea nitroge n measurement (mass/volume)Ordered By: Dr. Khan on 09-30-2022 Urea nitrogen [Mass/Vol] 8 mg/dL 7-18 [facility] Thin prep Papanicolaou smear with manual screeningOrdered By: Dr. Khan on 09-30-2022 Thin prep Papanicolaou smear with manual screening 7 5-15 [facility] Basophil percentageon 2021 WBC (Bld) [#/Vol] 4.9 10*3/uL 4.4-11.0 [facility] Work Phone: Blood erythrocytes count (nu mber/volume)on 07-12-2022 RBC (Bld) [#/Vol] 4.53 10*6/uL 4.2-5.4 [facility] Work Phone: Blood hemoglobin measurement (mass/volume)on 07-12-2022 Hemoglobin (Bld) [Mass/Vol] 13.6 g/dL 12.0-15.0 [facility] Work Phone: Blood platelet mean volumeon 07-12-2022 Platelet mean volume (Bld) [Entitic vol] 10.2 fL 6.2-12.0 [facility] Work Phone: Determination of erythrocyte mean corpuscular volume (MCV)on 07-12-2022 MCV (RBC) [Entitic vol] 91.8 fL 81-99 [facility] Work Phone: Hematocrit Auto (Bld) [Volum e fraction]on 07-12-2022 Hematocrit (Bld) [Volume fraction] 41.6 % 37-47 [facility] Work Phone: Laboratory - Chemistry and C hemistry - challengeon 07-12-2022 HCG ( test) Ql (U) Negative [facility] Work Phone: Comment on above: Very dilute urine sp ecimens, as indicated by a low specificgravity, may not contain in store representative levels of hCG. If is still suspected, a first morning urinespecimen should be collected 48 hours later and tested. Laboratory - Hematology and Cell countson 07-12-2022 Erythrocyte distribution width (RBC) [Entitic vol] 41.2 fL 35.1-43.9 [facility] Work Phone: Erythrocyte distribution width (RBC) [Ratio] 12.2 % 11.6-14.6 [facility] Work Phone: MCH (RBC) [Entitic mass] 30.0 pg 27.0-32.0 [facility] Work Phone: MCHC Auto (RBC) [Mass/Vol]on 07-12-2022 MCHC (RBC) [Mass/Vol] 32.7 g/dL 32-36 [facility] Work Phone: Platelets bldon 07-12-2022 Platelets (Bld) [#/Vol] 210 10*3/uL 150-450 [facility] Work Phone: Laboratory - Microbiology an d Antimicrobial susceptibilityon 05-21-2022 SARS-CoV-2 (COVID-19) RNA OWEN+probe Ql (Unsp spec) Not detected [facility] Work Phone: No Panel Informationon 05-21 POC Nasal Swab Influenza A,B Not detected [facility] Work Phone: POC Nasal Swab RSV Not detected [facility] Work Phone: Laboratory - Microbiology an d Antimicrobial susceptibilityon 05-20-2022 SARS-CoV-2 (COVID-19) RNA OWEN+probe Ql (Unsp spec) Not detected [facility] Work Phone: Laboratory - Microbiology an d Antimicrobial susceptibilityon 04-07-2022 SARS-CoV-2 (COVID-19) RNA OWEN+probe Ql (Unsp spec) Not detected [facility] Work Phone: No Panel Informationon 04-07 POC Nasal Swab Influenza A,B Not detected [facility] Work Phone: POC Nasal Swab RSV Not detected [facility] Work Phone: Laboratory - Microbiology an d Antimicrobial susceptibilityon 04-04-2022 SARS-CoV-2 (COVID-19) RNA OWEN+probe Ql (Unsp spec) Not detected [facility] Work Phone: No Panel Informationon 04-04 POC Nasal Swab Influenza A,B Not detected [facility] Work Phone: POC Nasal Swab RSV Not detected [facility] Work Phone: Absolute lymphocyte counton 01-12-2022 Lymphocytes Auto (Unsp spec) [#/Vol] 1.14 10*3/uL 0.83-4.51 [facility] Work Phone: Basophil percentageon 2021 Basophils/100 WBC (Bld) 0.6 % 0-1 [facility] Work Phone: Bilirubin [Mass/Vol] 0.70 mg/dL 0.20-1.00 [facility] Work Phone: Comment on above: For patients on eltr ombopag therapy, use of Dimension Ashley TBIL is not recommended. Chloride [Moles/Vol] 104 mmol/L 98-107 [facility] Work Phone: Eosinophils/100 WBC (Bld) 0.9 % 0-5 [facility] Work Phone: Glucose [Mass/Vol] 109 mg/dL 74-106 [facility] Work Phone: Comment on above: Fasting Glucose resu lt from 100 to 125 mg/dL suggests IMPAIRED HOMEOSTASIS per A.D.A. criteria. Neutrophils (Bld) [#/Vol] 7.8 10*3/uL 2.0-7.7 [facility] Work Phone: Neutrophils/100 WBC (Bld) 80.2 % 47-70 [facility] Work Phone: Potassium [Moles/Vol] 3.9 mmol/L 3.5-5.1 [facility] Work Phone: Protein [Mass/Vol] 7.4 g/dL 6.4-8.2 [facility] Work Phone: Sodium [Moles/Vol] 137 mmol/L 136-145 [facility] Work Phone: WBC (Bld) [#/Vol] 9.8 10*3/uL 4.4-11.0 [facility] Work Phone: Blood erythrocytes count (nu mber/volume)on 01-12-2022 RBC (Bld) [#/Vol] 4.72 10*6/uL 4.2-5.4 [facility] Work Phone: Blood hemoglobin measurement (mass/volume)on 01-12-2022 Hemoglobin (Bld) [Mass/Vol] 14.2 g/dL 12.0-15.0 [facility] Work Phone: Blood lymphocytes/100 leukoc yteson 01-12-2022 Lymphocytes/100 WBC (Bld) 11.7 % 19-41 [facility] Work Phone: Blood monocytes/100 leukocyt eson 01-12-2022 Monocytes/100 WBC (Bld) 6.2 % 0-10 [facility] Work Phone: Blood platelet mean volumeon 01-12-2022 Platelet mean volume (Bld) [Entitic vol] 11.4 fL 6.2-12.0 [facility] Work Phone: Determination of erythrocyte mean corpuscular volume (MCV)on 01-12-2022 MCV (RBC) [Entitic vol] 88.6 fL 81-99 [facility] Work Phone: Hematocrit Auto (Bld) [Volum e fraction]on 01-12-2022 Hematocrit (Bld) [Volume fraction] 41.8 % 37-47 [facility] Work Phone: [phone] Laboratory - Chemistry and C hemistry - challengeon 01-12-2022 ALP [Catalytic activity/Vol] 59 U/L 45-117 [facility] Work Phone: ALT [Catalytic activity/Vol] 19 U/L 13-56 [facility] Work Phone: [phone] CO2 [Moles/Vol] 30.0 mmol/L 21.0-32.0 [facility] Work Phone: [phone] Globulin (S) [Mass/Vol] 3.3 g/dL 2.2-4.2 [facility] Work Phone: [phone] Urea nitrogen/Creatinine [Mass ratio] 11.7 mg/mg 10-20 [facility] Work Phone: [phone] Laboratory - Hematology and Cell countson 01-12-2022 Erythrocyte distribution width (RBC) [Entitic vol] 40.7 fL 35.1-43.9 [facility] Work Phone: [phone] Erythrocyte distribution width (RBC) [Ratio] 12.4 % 11.6-14.6 [facility] Work Phone: [phone] Immature granulocytes/100 WBC (Bld) 0.400 % 0.0-0.9 [facility] Work Phone: [phone] Comment on above: IG% - Immature Granu locytes (promyelocytes, myelocytes and metamyelocytes) > 1% indicates that a LEFT SHIFT is Present. MCH (RBC) [Entitic mass] 30.1 pg 27.0-32.0 [facility] Work Phone: [phone] Nucleated RBC/100 WBC (Bld) [Ratio] 0 % 0-5 [facility] Work Phone: [phone] MCHC Auto (RBC) [Mass/Vol]on 01-12-2022 MCHC (RBC) [Mass/Vol] 34.0 g/dL 32-36 [facility] Work Phone: No Panel Informationon 01-12 Estimated GFR (MDRD) Amer 140 mL/min >60 [facility] Work Phone: Comment on above: GFR Calc Estimated GFR (MDRD) Non-Af Amer 116 mL/min >60 [facility] Work Phone: Comment on above: Non- GFR Calc Platelets bldon 01-12-2022 Platelets (Bld) [#/Vol] 189 10*3/uL 150-450 [facility] Work Phone: Serum or plasma albumin juliette urement (mass/volume)on 01-12-2022 Albumin [Mass/Vol] 4.1 g/dL 3.2-5.0 [facility] Work Phone: Serum or plasma albumin/glob ulin mass ratioon 01-12-2022 Albumin/Globulin [Mass ratio] 1.2 {ratio} 0.9-2.4 [facility] Work Phone: Serum or plasma calcium juliette urement (mass/volume)on 01-12-2022 Calcium [Mass/Vol] 9.6 mg/dL 8.5-10.1 [facility] Work Phone: Serum or plasma creatinine m easurement (mass/volume)on 01-12-2022 Creatinine [Mass/Vol] 0.68 mg/dL 0.55-1.02 [facility] Work Phone: Comment on above: The validity of the calculated GFR & GFRAA in patients over 70 years has not been determined. Clinical correlation is essential. Serum or plasma urea nitroge n measurement (mass/volume)on 01-12-2022 Urea nitrogen [Mass/Vol] 8 mg/dL 7-18 [facility] Work Phone: Thin prep Papanicolaou smear with manual screeningon 01-12-2022 Thin prep Papanicolaou smear with manual screening 21 U/L 15-37 [facility] Work Phone: Thin prep Papanicolaou smear with manual screening 3 5-15 [facility] Work Phone: Vital Signs Date Time Vital Sign Value Performing Clinician Faci lity 06-21-2025 23:06-0400 Body temperature 98.2 [degF] Dr. Edson Khan MD Work Phone: [facility] 06-21-2025 23:06-0400 Diastolic blood pressure 78 mm[Hg] Dr. Edson Khan MD Work Phone: [facility] 06-21-2025 23:06-0400 Heart rate 95 /min Dr. Edson Khan MD Work Phone: [facility] 06-21-2025 23:06-0400 Respiratory rate 15 /min Dr. Edson Khan MD Work Phone: [facility] 06-21-2025 23:06-0400 SaO2% (BldA) [Mass fraction] 99 % Dr. Edson Khan MD Work Phone: [facility] 06-21-2025 23:06-0400 Systolic blood pressure 121 mm[Hg] Dr. Edson Khan MD Work Phone: [facility] 06-21-2025 22:27-0400 Body height 167.[address] Edson Khan MD Work Phone: [facility] 06-21-2025 22:27-0400 Body mass index (BMI) [Ratio] 25 kg/m2 Dr. Edson Khan MD Work Phone: [facility] 06-21-2025 22:27-0400 Body weight 70.[address] Edson Khan MD Work Phone: [facility] 05-24-2025 13:30-0400 Body temperature 97.7 [degF] Dr. Edson Khan MD Work Phone: [facility] 05-24-2025 13:30-0400 Diastolic blood pressure 66 mm[Hg] Dr. Edson Khan MD Work Phone: [facility] 05-24-2025 13:30-0400 Heart rate 76 /min Dr. Edson Khan MD Work Phone: [facility] 05-24-2025 13:30-0400 Respiratory rate 14 /min Dr. Edson Khan MD Work Phone: [facility] 05-24-2025 13:30-0400 SaO2% (BldA) [Mass fraction] 99 % Dr. Edson Khan MD Work Phone: [facility] 05-24-2025 13:30-0400 Systolic blood pressure 100 mm[Hg] Dr. Edson Khan MD Work Phone: [facility] 09-02-2023 09:27-0500 Body height 167.64 cm [facility] 09-02-2023 09:27-0500 Body mass index (BMI) [Ratio] 25.4 kg/m2 [facility] 09-02-2023 09:27-0500 Body temperature 97.7 [degF] [facility] 09-02-2023 09:27-0500 Body weight 71.41 kg [facility] 09-02-2023 09:27-0500 Diastolic blood pressure 87 mm[Hg] [facility] 09-02-2023 09:27-0500 Heart rate 118 /min [facility] 09-02-2023 09:27-0500 Respiratory rate 16 /min [facility] 09-02-2023 09:27-0500 SaO2% (BldA) [Mass fraction] 100 % [facility] 09-02-2023 09:27-0500 Systolic blood pressure 131 mm[Hg] [facility] 03-22-2023 09:50-0400 Body height 172.[address] Edson Khan Work Phone: [facility] 03-22-2023 09:40-0400 Body mass index (BMI) [Ratio] 22.2 kg/m2 Dr. Edson Khan Work Phone: [facility] 03-22-2023 09:40-0400 Body weight 66.[address] Edson Khan Work Phone: [facility] 03-22-2023 09:40-0400 Diastolic blood pressure 70 mm[Hg] Dr. Edson Khan Work Phone: [facility] 03-22-2023 09:40-0400 Systolic blood pressure 102 mm[Hg] Dr. Edson Khan Work Phone: [facility] 03-17-2023 16:27-0400 Body mass index (BMI) [Ratio] 22 kg/m2 [facility] 03-17-2023 16:27-0400 Body weight 65.77 kg [facility] 03-17-2023 16:26-0400 Body height 172.72 cm [facility] 03-17-2023 16:26-0400 Body temperature 98.5 [degF] [facility] 03-17-2023 16:26-0400 Diastolic blood pressure 78 mm[Hg] [facility] 03-17-2023 16:26-0400 Heart rate 107 /min [facility] 03-17-2023 16:26-0400 Respiratory rate 16 /min [facility] 03-17-2023 16:26-0400 SaO2% (BldA) [Mass fraction] 100 % [facility] 03-17-2023 16:26-0400 Systolic blood pressure 115 mm[Hg] [facility] 10-11-2022 15:25-0500 Body height 170.[address] Edson Khan Work Phone: [facility] 10-11-2022 15:25-0500 Body mass index (BMI) [Ratio] 22.7 kg/m2 Dr. Edson Khan Work Phone: [facility] 10-11-2022 15:25-0500 Body weight 65.[address] Edson Khan Work Phone: [facility] 10-11-2022 15:25-0500 Diastolic blood pressure 71 mm[Hg] Dr. Edson Khan Work Phone: [facility] 10-11-2022 15:25-0500 Systolic blood pressure 115 mm[Hg] Dr. Edson Khan Work Phone: [facility] 07-12-2022 16:18-0400 Body temperature 98.5 [degF] PA Fabián Ledezma PA Work Phone: [facility] Work Phone: 07-12-2022 16:18-0400 Diastolic blood pressure 52 mm[Hg] PA Fabián Ledezma PA Work Phone: [facility] Work Phone: 07-12-2022 16:18-0400 Heart rate 63 /min PA Fabián Ledezma PA Work Phone: [facility] Work Phone: 07-12-2022 16:18-0400 Respiratory rate 16 /min PA Fabián Ledezma PA Work Phone: [facility] Work Phone: 07-12-2022 16:18-0400 SaO2% (BldA) [Mass fraction] 100 % PA Fabián Ledezma PA Work Phone: [facility] Work Phone: 07-12-2022 16:18-0400 Systolic blood pressure 93 mm[Hg] PA Fabián Ledezma PA Work Phone: [facility] Work Phone: 07-12-2022 13:05-0400 Body height 170.18 cm PA Fabián Ledezma PA Work Phone: [facility] Work Phone: 07-12-2022 13:05-0400 Body mass index (BMI) [Ratio] 20.7 kg/m2 PA Fabián Ledezma PA Work Phone: [facility] Work Phone: 07-12-2022 13:05-0400 Body weight 60 kg PA Fabián Ledezma PA Work Phone: [facility] Work Phone: 06-09-2022 13:06-0400 Body mass index (BMI) [Ratio] 20.3 kg/m2 PA Fabián Ledezma PA Work Phone: [facility] Work Phone: 06-09-2022 13:06-0400 Body weight 57.15 kg SAMMY Ledezma PA Work Phone: [facility] Work Phone: 06-09-2022 13:06-0400 Diastolic blood pressure 72 mm[Hg] SAMMY CHRISTIANSON Work Phone: [facility] Work Phone: 06-09-2022 13:06-0400 Systolic blood pressure 110 mm[Hg] SAMMY Ledezma PA Work Phone: [facility] Work Phone: 03-26-2022 16:23-0400 Body height 167.64 cm [facility] Work Phone: 03-26-2022 16:23-0400 Body mass index (BMI) [Ratio] 18.9 kg/m2 [facility] Work Phone: 03-26-2022 16:23-0400 Body temperature 97.6 [degF] [facility] Work Phone: 03-26-2022 16:23-0400 Body weight 53.3 kg [facility] Work Phone: 03-26-2022 16:23-0400 Diastolic blood pressure 86 mm[Hg] [facility] Work Phone: 03-26-2022 16:23-0400 Heart rate 86 /min [facility] Work Phone: 03-26-2022 16:23-0400 Respiratory rate 15 /min [facility] Work Phone: 03-26-2022 16:23-0400 SaO2% (BldA) [Mass fraction] 98 % [facility] Work Phone: 03-26-2022 16:23-0400 Systolic blood pressure 126 mm[Hg] [facility] Work Phone: Encounters Encounter Date Encounter Type Care Provider Facility Start: 08-25-2025 ambulatory Edson Rodriguezelsen Facility:[facility] Start: 08-25-2025 End: 08-25-2025 ambulatory Wen Fish Facility:[facility] Start: 08-12-2025 ambulatory Edson Khan Facility:[facility] Start: 08-12-2025 End: 08-12-2025 ambulatory Edson Khan Facility:[facility] Start: 06-21-2025 End: 06-21-2025 Emergency department patient visit Dr. Edson Khan MD Work Phone: -Emergency Department Work Phone: Start: 05-24-2025 End: 05-24-[address] Edson Khan MD Work Phone: [facility] Start: 05-24-2025 End: 05-24-2025 Patient encounter procedure Mary Anne Schneider [facility]ION[employer]ION SERVICE SPECIALIST[facility] Work Phone: Start: 05-24-2025 End: 05-24-2025 ambulatory Mary Anne Schneider Facility:[facility] Start: 04-15-2025 Non-patient / Non-visit Dr. Hilary pearl MD -[facility] Work Phone: Start: 10-30-2024 End: 10-30-2024 ambulatory Edson Khan Facility:[facility] Start: 09-26-2024 End: 09-26-2024 ambulatory Edson Khan Facility:[facility] Start: 09-26-2024 End: 09-26-2024 ambulatory Edson Khan Facility:[facility] Start: 09-21-2024 End: 09-21-2024 ambulatory Mary Anne Wyatt Facility:[facility] Start: 09-20-2024 End: 09-20-2024 ambulatory Edson Khan Facility:[facility] Start: 10-24-2023 End: 10-24-2023 ambulatory [facility] Work Phone: Start: 10-24-2023 End: 10-24-2023 Patient encounter procedure [facility]-Ultrasound, [facility] Work Phone: Start: 09-02-2023 End: 09-02-2023 Emergency department patient visit [facility]-Emergency Department Work Phone: Start: 03-30-2023 End: 03-30-[address] Edson Khan Work Phone: [facility] Work Phone: Start: 03-22-2023 End: 03-22-[address] Edson Khan Work Phone: [facility] Work Phone: Start: 03-22-2023 End: 03-22-[address] Edson Khan Work Phone: [facility]-Laboratory, Specimen Start: 03-22-2023 End: 03-22-[address] Edson Khan Work Phone: [facility] Start: 03-17-2023 End: 03-17-2023 Emergency department patient visit [facility]-Emergency Department Start: 01-03-2023 End: 01-03-[address] Edson Khan Work Phone: [facility] Work Phone: Start: 01-03-2023 End: 01-03-[address] Edson Khan Work Phone: [facility]-Physical Therapy Work Phone: Start: 01-03-2023 Registered Recurring [facility] Start: 12-03-2022 End: 12-03-[address] Edson Khan Work Phone: [facility] Work Phone: Start: 12-03-2022 End: 12-03-[address] Edson Khan Work Phone: [facility] Start: 10-11-2022 End: 10-11-[address] Edson Khan Work Phone: [facility] Start: 09-30-2022 End: 09-30-[address] Edson Khan Work Phone: [facility] Start: 07-12-2022 End: 07-12-2022 Admission to same day surgery center [facility]SON [facility] Start: 07-12-2022 End: 07-12-2022 ambulatory SAMMY CHRISTIANSON Work Phone: [facility] Work Phone: Start: 07-12-2022 Non-patient / Non-visit SAMMY CHRISTIANSON Work Phone: [facility] Start: 06-09-2022 End: 06-09-2022 Patient encounter procedure SAMMY CHRISTIANSON Work Phone: [facility] Start: 05-21-2022 End: 05-21-2022 Patient encounter procedure SAMMY CHRISTIANSON Work Phone: [facility] Start: 05-20-2022 End: 05-20-2022 Patient encounter procedure SAMMY CHRISTIANSON Work Phone: [facility] Start: 04-07-2022 End: 04-07-2022 Patient encounter procedure SAMMY CHRISTIANSON Work Phone: [facility] Start: 04-04-2022 End: 04-04-2022 Patient encounter procedure SAMMY Ledezma PA Work Phone: [facility] Start: 03-26-2022 End: 03-26-2022 Emergency department patient visit [facility]-Emergency Department Start: 01-12-2022 End: 01-12-2022 [facility] Date Procedure Procedure Detail Performing Clinician [...] Treatment Date Care Activity Detail Author Start: 06-21-2025 [facility] Start: 09-02-2023 [facility] Start: 03-22-2023 Liquid based cervica l cytology screening [facility] Start: 07-12-2022 Ambulation without limitation [facility] Work Phone: Start: 07-12-2022 Medical regimen orde rs management [facility] Work Phone: Start: 07-12-2022 Medication education [facility] Work Phone: Start: 07-12-2022 End: 07-12-2022 Patient discharge [facility] Work Phone: Start: 07-12-2022 Procedure discontinued [facility] Work Phone: Start: 07-12-2022 Taking patient vital signs [facility] Work Phone: Start: 07-12-2022 Vital signs measurements [facility] Work Phone: Start: 07-12-2022 [facility] Work Phone: Start: 07-12-2022 Admission procedure [facility] Work Phone: HIV 1+2 Ab+HIV1 p24 Ag [Presence] in Serum or Plasma by Immunoassay [facility] Patient Education [facility] Work Phone: Patient referral [facility] Work Phone: [facility] Immunizations Immunization Date Immunization Notes Care Provider Fa cili 07-22-2024 influenza, seasonal, injectable, preservative free Dr. Edson Khan MD Work Phone: [facility] 08-11-2023 influenza, injectabl e, quadrivalent, preservative free [facility] 09-09-2022 influenza, injectabl e, quadrivalent, preservative free [facility] 09-09-2022 influenza, seasonal, injectable Dr. Edson Khan Work Phone: [facility] 10-04-2021 Covid (Pfizer) [facility] 09-13-2021 Covid (Pfizer) [facility] 07-21-2021 influenza, injectabl e, quadrivalent, preservative free [facility] 07-21-2021 influenza, seasonal, injectable [facility] 07-22-2020 influenza, injectabl e, quadrivalent, preservative free [facility] 07-22-2020 influenza, seasonal, injectable [facility] 09-25-2019 influenza, injectabl e, quadrivalent, preservative free [facility] 09-25-2019 influenza, seasonal, injectable [facility] 09-04-2018 influenza, injectabl e, quadrivalent, preservative free [facility] 09-04-2018 influenza, seasonal, injectable [facility] Payers Date Payer Category Payer Self-pay [id number] 2024 Unknown [id number] 2016 Unknown [id number] Unknown [id number] [id number] Unknown [id number] [id number] Unknown [id number] [id number] Unknown [id number] [id number] Unknown [id number] 2.16.8 [id number] Unknown [id number] 2.16.8 [id number] Unknown [id number] 2.16.8 [id number] Unknown [id number] 2.16.8 [id number] Unknown [id number] 2.16.8 [id number] Unknown [id number] 2.16.8 [id number] Unknown [id number] 2.16.8 [id number] Unknown [id number] 2.16.8 [id number] Unknown [id number] 2.16.8 [id number] Social History Date Type Detail Facility Start: 06-16-2021 End: 09-02-2023 Tobacco smoking status NHIS Unknown if ever smoked [facility] Start: 12-20-2019 With Family [facility] Start: 12-20-2019 Vapor [facility] Start: 2000 Sex Assigned At Female [facility] Start: 09-21-2024 End: 06-21-2025 Tobacco smoking status NHIS Current some day smoker [facility] NEGATED: Highlighted row [facility] Goals Date Patient Goal Desired Activity /State Mental Status Date Assessment Result Facility 07-12-2022 Cognitive function Level Of Consciousness Sedated [facility] Work Phone: 07-12-2022 Cognitive function Voice/Name [facility] Work Phone: Clinical Notes 03-17-2023 to 06-18-2025 Note Date & Type Note Facility 06-18-2025 Hospital Discharg e instructions Additional Instructions Please take the antibiotic as directed to help resolve your infection. It would typically take 2 to 3 days before you notice improvement. If you develop a fever the redness begins to spread rapidly despite taking the medication or you have lymphangitic streaking please return to the ER for repeat evaluation. [facility] Work Phone: 05-24-2025 Evaluation note Diagnosis Onset Date Resolution Dysuria acute May 24 1:27pm [facility] Work Phone: 1(548) 519-641607-05-2023 Discharge summary Author Patrice Shell [facility] April 19, 2023 9:13am Note Date/Time April 19, 2023 9:14a m [facility] Physical Therapy [facility] [address] [place] [address] / REHABILITATION SERVICES DISCHARGE SUMMARY MR#: [id number] Acct: [id number] Name: KARIS BRIGHT Rep #: [id number] : 2000 22 From: Patrice Shell PT, ATC Referring Dr.: Dr. Janes Manrique, DO Status: REG RCR Insurance: [employer] Patient Information Patient Information: [...] PT, ATC> 04/19/23 0913 CC: Dr. Janes Manrique DO; Dr. Edson Khan MD ~ [facility] Signed [facility] Work Phone: 1(436) 321-487006-07-2023 NotePap Smear Specimen AdequacyJune 2022 5:43pmComment.Satisfactory for evaluation. Endocervical and/or squamous metaplasticcells (endocervical component)are present.[facility] INTERFACED A#[id number] Health System Galion HospitalComment on above:Satisfactory for evaluation. Endocervical and/or squamous metaplasticcells (endocervical component)are present.03-22-2023 NotePap Smear Specimen AdequacyJune 2022 5:43pmComment.Satisfactory for evaluation. Endocervical and/or squamous metaplasticcells (endocervical component)are present.[facility] INTER[facility]ACED A#[id number] Health System Galion HospitalComment on above:Satisfactory for evaluation. Endocervical and/or squamous metaplasticcells (endocervical component)are present.03-17-[address] Moreno [facility] March 17, 2023 5:07pm Note Date/Time March 17, 2023 4:46p [facility] Medical Records Department [address] [place] [address] Emergency Department Summary 03/17/23 MR#: [id number] Acct: [id number] Name: KARIS BRIGHT Rep #:[id number] : 2000 22 From: Masood Jimenez PCP: Dr. Edson Khan MD Status:REG E R Location: ED HPI History of Present Illness Chief Complaint: Lower Extremity Injury [facility] Medical History (Updated 03/17/23 @ 17:[address] Masood Moreno DO) Depression with anxiety Easy bruising Excessive [...] mg/mL intramuscular syringe (Depo-Provera) 150 mg IM [id number] #1 mL 08/02/22 [Rx Last Taken Unknown] [...] Ox 100 Oxygen Delivery Method Room Air MDM MDM MDM Narrative Medical decision making narrative: HISTORY OF [...] History obtained from others: The patient's family, ficortney? Consults: None ALL IMAGES HAVE BEEN PERSONALLY REVIEWED AND INTERPRETED BY MYSELF. [facility] Narrative: Patient was hemodynamically stable, afebrile, nontoxic-appearing. [...] Signed: Herman Hinkle MD at 16:58 EDT Reading Location ID and State: [facility] / [place] Tel , Service support , X-ray reviewed personally by myself shows [...] [Depo-Provera] 150 mg/mL syringe 150 mg IM [id number] Qty: 1 4RF trazodone 50 mg Tablet [...] problems, contact your Primary Care Provider. Call [facility] ([phone]) or report to the closest Emergency Room. Call 911 if necessary. [id number] <Electronically signed by Masood Moreno DO> Cosigner Signature (if applicable): CC: Dr. Edson Khan MD ~ Signed [facility] Work Phone: Chief complaint+Reason for visit Narrative* Chief Complaint dental COVID TEST/[employer] COVID-19 COVID-19/[employer] COVID-19 Mirena removal HYSTEROSCOPY IUD REMOVAL HYSTEROSCOPY IUD REMOVAL Reason for Visit Anxiety Contraceptive management Retained intrauterine contraceptive device (IUD) [facility] Work Phone: Evaluation noteNo assessment information available [facility] Work Phone: Evaluation note* Diagnosis Onset Date Resolution Status Anxiety acute Contraceptive management acu te Retained intrauterine contraceptive device (IUD) acute [facility] Work Phone: Evaluation note* Diagnosis Onset Date Resolution Status Contraceptive management acu te [facility] Work Phone: Evaluation note* Diagnosis Onset Date Resolution Status Encounter for routine gynecological examination noneactive [facility] Work Phone: Hospital Discharge instructions Additional Instructions [...] care physician for further outpatient evaluation and management.[facility] Work Phone: Reason for referral (narrative)No reason for referral information [facility] Work Phone: Family History No Family History Records Found Relationship Condition Age at Onset Recorded Date/T brice mother High blood cholesterol Unknown father High blood cholesterol Unknown Advance Directives No Advanced Directives Records Found Advance Directive Response Recorded Date/ Time Advance Directives No April 28 9:34am Living Will No April 28, 2021 9:34am Power of Sleever No April 28 9:34am Advance Directive Response Recorded Date/ Time Advance Directives No February 22 8:52am Living Will No March 26, 2022 5:07pm Power of Sleever No March 26 5:07pm Advance Directive Response Recorded Date/ Time Advance Directives No February 22 7:52am Living Will No March 26, 2022 4:07pm Power of Sleever No March 26 4:07pm Advance Directive Response Recorded Date/ Time Advance Directives No February 22 8:52am Living Will No March 17, 2023 5 :34pm Power of Sleever No March 17, 2023 5:34pm Advance Directive Response Recorded Date/ Time Advance Directives No February 22 7:52am Living Will No September 02 9:41am Power of Sleever No September 02, 2023 9:41am Advance Directive Response Recorded Date/ Time Advance Directives No September 21, 2024 1:10pm Advance Directive Response Recorded Date/ Time Do you have a Healthcare Power of Sleever? No June 21, 2025 10:27pm Advance Directives No September 21, 2024 1:10pm Chief Complaint and Reason for Visit Chief Complaint Admit Date CONCERN FOR UTI May 24, 2025 1:2 7pm cellulitis June 21, 2025 10:26pm Reason for Visit Admit Date Dysuria May 24, 2025 1:2 7pm Chief Complaint dental Chief Complaint dental COVID TEST/[employer] Chief Complaint [place] Injection PAIN IN LEFT KNEE Reason for Visit Contraceptive manage ment Chief Complaint PAIN IN LEFT KNEE SPRAIN OF ACL L KNEE/ DR TO FAX left ankle Chief Complaint PAIN IN LEFT KNEE SPRAIN OF ACL L KNEE/ DR TO FAX left ankle Annual ([employer]) Reason for Visit Encounter for routin e gynecological examination Chief Complaint SPRAIN OF ACL L KNEE / DR TO FAX left ankle Annual ([employer]) Pain Reason for Visit Encounter for routin e gynecological examination Chief Complaint UTI UTI Chief Complaint Admit Date CONCERN FOR UTI May 24, 2025 1:2 7pm Summary Purpose [...] Care Provider, Referring Provider Active Olivia Madison REGIONAL EXTENSION SERVICE SPECIALIST, REGIONAL EXTENSION SERVICE SPECIALIST-C Attending Provider Active Team Status: Inactive Member [...] Primary Care Provider, Referring Provider Active Lucille Adorno CNM Attending Provider Active Team Status: Inactive [...] Edson Khan MD Primary Care Provider Active Piyush CHRISTIANSON PA Attending Provider Active Team Status: Inactive Member [...] May 24, 2025 End: May 24, 2025 Mary Anne Schneider REGIONAL EXTENSION SERVICE SPECIALIST-C Attending Provider Active Start: May 24, 2025 End: May 24, 2025 Team Status: Inactive Member Role/Relationship Status Dates Dr. Edson Khan MD Primary Care Provider Active Start: May 24, 2025 End: May 24, 2025 Mary Anne Schneider REGIONAL EXTENSION SERVICE SPECIALIST-C Attending Provider Active Start: May 24, 2025 End: May 24, 2025 Team Status: Inactive Member Role/Relationship Status Dates Dr. Edson Khan MD Primary Care Provider Active Start: May 24, 2025 End: May 24, 2025 Dr. Edson Khan MD Referring Provider Active Start: May 24, 2025 End: May 24, 2025 Mary Anne Schneider NP-C Attending Provider Active Start: May 24, 2025 End: May 24, 2025 Team Status: Active Member Role/Relationship Status Dates Dr. Edson Khan MD Primary Care Provider Active Team Status: Inactive Member Role/Relationship Status Dates Dr. Edson Khan MD Primary Care Provider Active Start: June 21, 2025 End: June 21, 2025 Dr. Calixto Lagunas DO Emergency Provider Active Start: June 21, 2025 End: June 21, 2025 INFORMATION SOURCE (unrecogn ized section and content) DATE CREATED AUTHOR 05/08/2023 [facility] DATE CREATED AUTHOR AUTHOR'S ORGANIZ ATION 08/26/2025 [facility] FOR RECORDS PERTAINING TO PATIENTS WHO ARE [...] BE BASED ON THE PRIMARY CLINICAL RECORDS. [facility], [facility]. provides no warranty or guarantee of the accuracy or completeness of information in this document.
[2025-09-03 13:31] LABS: Hematocrit 40.7 % (37-47); Hemoglobin 13.4 g/dL (12.0-15.0); Immature Granulocytes Count 0.050 X10^3/uL (0.0-0.0); Mean Corp Hgb Conc 32.9 g/dL (32-36); Mean Corpuscular Volume 91.9 fL (81-99); Mean Platelet Vol. 11.0 fl (6.2-12.0); NRBC Flagged by Analyzer 0 % (0-5); Platelet Count 213 K/mm3 (150-450); RBC Distribution Width CV 13.4 % (11.6-14.6); RBC Distribution Width SD 45.3 fl (35.1-43.9); Red Blood Count 4.43 M/mm3 (4.2-5.4); White Blood Count 8.8 K/mm3 (4.4-11.0)
[2025-09-03 14:05] LABS: HIV Nonreactive (Nonreactive); Hepatitis B Surface Antigen Nonreactive (Nonreactive); Hepatitis C Antibody Nonreactive (Nonreactive); Syphilis Antibodies Nonreactive (Nonreactive)
== END | disposition home or self-care (01) ==
PROVIDERS: Advanced Practice Midwife; PCP Family Medicine; Visit Provider Obstetrics & Gynecology
DX: O09.90 Supervision of high risk pregnancy, unspecified, unspecified trimester (principal); R94.6 Abnormal results of thyroid function studies; Z3A.00 Weeks of gestation of pregnancy not specified
CPT/HCPCS: 36415; 84439; 84443; 85025; 86376; 86703; 86762; 86780; 86803; 86850; 86900; 86901; 87340